=== PATIENT | female | born 1950 | race Caucasian/White ===

== ENCOUNTER 2016-08-20 13:49 | Emergency (ER) | payer MEDICARE ==
[~2016-08-20] VITALS: Ht 157.4 cm; Wt 72.6 kg
[~2016-08-20 13:49] MED LIST: ACCUNEB 0.1.25 MG/1 INH; ACTOS45 MG PO; ADVAIR 250/501 EA INH; AMARYL4 MG PO; AMBIEN10 MG PO; CARDIZEM CD180 MG PO; CLONAZEPAM1 MG PO; CYCLOBENZAPRINE10 MG PO; DOXYCYCLINE MO100 MG PO; DOXYCYCLINE100 M3 PO; ERYTHROMYCIN500 M2 PO; FLAGYL500 MG; GLYBURIDE5 MG PO; KLONOPIN1 MG PO; LEVAQUIN750 MG PO; MEDROL DOSEPAK4 MG PO; MILLIPRED DP5 MG PO; MUCINEX600 MG PO; NAPROSYN500 MG PO; NEOMYCIN SULFA500 MG; NICODERM21 MG/24 H TD; OSCAL,OYSTER S500 MG PO; OXYCODONE AND A1 T13 PO; PEPCID AC10 M1 PO; PERCOCET 325 MG1 TA5 PO; PLAVIX75 MG PO; PRAVACHOL20 MG PO; PREDNISONE10 MG PO; PRILOSEC20 MG PO; SINGULAIR10 MG PO; SYMBICORT1 AE1 INH; TRAMADOL HCL50 MG PO; TUSSI ORGANIDI PO; VITAMIN D50000 I2 PO; ZITHROMAX Z-PA250 MG
[2016-08-20 14:07] VITALS: BP 145/49
[2016-08-20 15:17] LABS: BASO % 0.5 % (0.0-1.0); EOS # 0.1 10*3/uL (0.0-0.4); EOS % 1.1 % (1.0-4.0); HEMATOCRIT 47.5 % (37.0-47.0); HEMOGLOBIN 15.4 g/dl (12.0-16.0); LYMPH # 2.1 10*3/uL (1.3-4.4); LYMPH % 31.9 % (27.0-41.0); MEAN CELL VOLUME 99.4 fl (81.0-99.0); MEAN CORPUSCULAR HGB 32.2 pg (27.0-31.0); MEAN CORPUSCULAR HGB CONC 32.4 g/dl (33.0-37.0); MEAN PLATELET VOLUME 10.3 fl (9.6-12.3); MONO # 0.5 10*3/uL (0.1-1.0); MONO % 7.6 % (3.0-9.0); NEUT # 3.8 10*3/uL (2.3-7.9); NEUT % 58.7 % (47.0-73.0); PLATELET COUNT AUTOMATED 179 10*3/uL (130-400); RED BLOOD COUNT 4.78 10*6/uL (4.10-5.10); RED CELL DISTRI WIDTH 14.1 % (0-14.5); WHITE BLOOD COUNT 6.5 10*3/uL (4.8-10.8)
[2016-08-20 15:33] LABS: ALBUMIN 3.1 gm/dl (3.1-4.5); ALKALINE PHOSPHATASE 93 U/L (45-117); BILIRUBIN, TOTAL 0.3 mg/dl (0.2-1.0); BUN 18 mg/dl (7-24); CARBON DIOXIDE 34 mmol/L (21-32); CHLORIDE 104 mmol/L (98-107); EST GLOM FILT AFRICAN AMERICAN > 60 ml/min; GLUCOSE 233 mg/dL (65-99); POTASSIUM 4.8 mmol/L (3.5-5.1); SGOT/AST 7 IU/L (3-35); SGPT/ALT 15 U/L (12-78); SODIUM 144 mmol/L (136-145); TOTAL PROTEIN 6.8 gm/dL (6.4-8.2)
[2016-08-20] MEDS ORDERED: PREDNISONE10 MG PO (16:13)
[2016-08-20] MEDS ORDERED: VIBRAMYCIN100 MG PO (16:13)
[2016-08-20 16:31] LABS: BILIRUBIN NEGATIVE (NEGATIVE); BLOOD NEGATIVE (NEGATIVE); CLARITY CLEAR (CLEAR); COLOR YELLOW (YELLOW); GLUCOSE 2+ (NEGATIVE); KETONE NEGATIVE (NEGATIVE); LEUKO ESTERASE NEGATIVE (NEGATIVE); NITRITE NEGATIVE (NEGATIVE); PROTEIN NEGATIVE (NEGATIVE); SPECIFIC GRAVITY >= 1.030 (1.005-1.030)
[2016-08-20 16:57] LABS: MUCOUS TRACE; RBC 0-2 rbc/hpf (0-2); URINE REFLEX COMMENT NO (NO); WBC 0-2 wbc/hpf (0-5)
== END 2016-08-20 16:23 | disposition home or self-care (01) ==
LOC: ED 13:49
PROVIDERS: Physician Assistant
DX: J40 Bronchitis, not specified as acute or chronic (principal); F17.200 Nicotine dependence, unspecified, uncomplicated; Z90.49 Acquired absence of other specified parts of digestive tract; J44.9 Chronic obstructive pulmonary disease, unspecified; J45.909 Unspecified asthma, uncomplicated

== ENCOUNTER → 2016-12-04 | Outpatient (CLI) | payer MEDICARE ==
[~2016-12-04] MED LIST changes: +VIBRAMYCIN100 MG PO
== END | disposition home or self-care (01) ==
LOC: MAMMO 10:12
DX: Z12.31 Encounter for screening mammogram for malignant neoplasm of breast (principal)

== ENCOUNTER 2017-02-09 12:55 | Inpatient (IN) | payer MEDICARE ==
[~2017-02-09] VITALS: Ht 157.4 cm; Wt 81.4 kg
--- NOTE | ~2017-02-09 | WRIGHTHP ---
[place], [place] PATIENT HISTORY AND PHYSICAL EXAM NAME: ARIEL FELIPE [facility] #: [id number] UNIT #: [id number] ROOM: [facility] DOCTOR: GINI RAE DO BIRTHDATE: [birth year] DOS: 02/09/2017 PRIMARY CARE PHYSICIAN: Dr. Sadaf Jeong The patient was seen and evaluated with the resident on 02/09/2017. Please see the resident's note for further details. ASSESSMENT: 1. Acute heart failure, unknown if systolic versus diastolic at this time. 2. Acute chronic obstructive pulmonary disease exacerbation. 3. Acute respiratory failure with hypoxia. 4. Diabetes mellitus type 2. 5. History of rheumatic fever as a child. 6. Hypertension. 7. Gastroesophageal reflux disease. 8. Tobacco abuse. 9. History of asthma. 10. History of bipolar disorder. 11. Depression. 12. Anxiety. 13. History of known left carotid artery stenosis. 14. History of diverticulitis with perforation, requiring a colostomy and reversal. PLAN: We will continue diuresis with IV Lasix, continue steroids, antibiotics and aerosol treatments. An echocardiogram has been ordered. Continue to follow the cardiac enzymes. GINI RAE DO CM:HISPHYS:PATIENT HISTORY AND PHYSICAL EXAMINATION 20 58 GINI RAE DO 02/09/172057 interface
[~2017-02-09 12:55] MED LIST changes: +SINGULAIR10 M1 PO; -SINGULAIR10 MG PO
[2017-02-09 13:00] VITALS: BP 154/68
[2017-02-09 13:37] LABS: BASO # 0.1 10*3/uL (0.0-0.1); BASO % 0.9 % (0.0-1.0); EOS % 0.5 % (1.0-4.0); HEMATOCRIT 46.6 % (37.0-47.0); HEMOGLOBIN 14.9 g/dl (12.0-16.0); LYMPH % 24.9 % (27.0-41.0); MEAN CELL VOLUME 99.1 fl (81.0-99.0); MEAN CORPUSCULAR HGB 31.7 pg (27.0-31.0); MEAN PLATELET VOLUME 9.9 fl (9.6-12.3); MONO # 0.8 10*3/uL (0.1-1.0); MONO % 9.9 % (3.0-9.0); NEUT # 5.1 10*3/uL (2.3-7.9); NEUT % 63.4 % (47.0-73.0); PLATELET COUNT AUTOMATED 168 10*3/uL (130-400)
[2017-02-09 13:55] LABS: ALKALINE PHOSPHATASE 98 U/L (45-117); BILIRUBIN, TOTAL 0.8 mg/dl (0.2-1.0); BUN 11 mg/dl (7-24); CARBON DIOXIDE 29 mmol/L (21-32); CHLORIDE 102 mmol/L (98-107); EST GLOM FILT AFRICAN AMERICAN > 60 ml/min; GLUCOSE 135 mg/dL (65-99); POTASSIUM 4.1 mmol/L (3.5-5.1); SGOT/AST 17 IU/L (3-35); SGPT/ALT 23 U/L (12-78); SODIUM 140 mmol/L (136-145); TOTAL PROTEIN 6.7 gm/dL (6.4-8.2); TROPONIN I 0.016 ng/ml (<0.045)
[2017-02-09 14:58] VITALS: BP 152/52
[2017-02-09 16:19] VITALS: BP 136/69
[2017-02-09 16:30] VITALS: BP 136/69
[2017-02-09] MEDS ORDERED: ZESTRIL10 MG PO (16:46)
[2017-02-09] MEDS ORDERED: ACTOS30 M1 PO (16:46)
[2017-02-09] MEDS ORDERED: PEPCID20 MG PO (16:47)
[2017-02-09] MEDS ORDERED: SPIRIVA -- 3018 MCG INH (16:49)
[2017-02-09] MEDS ORDERED: AMBIEN5 MG PO (16:51)
[2017-02-09] MEDS ORDERED: OXYCODONE-ASPI1 EACH PO (17:33)
[2017-02-09 19:59] VITALS: BP 158/63
[2017-02-10] VITALS: BP 124/58
[2017-02-10 06:59] LABS: HEMATOCRIT 44.8 % (37.0-47.0); HEMOGLOBIN 14.2 g/dl (12.0-16.0); MEAN CELL VOLUME 98.9 fl (81.0-99.0); MEAN CORPUSCULAR HGB 31.3 pg (27.0-31.0); MEAN CORPUSCULAR HGB CONC 31.7 g/dl (33.0-37.0); MEAN PLATELET VOLUME 10.4 fl (9.6-12.3); PLATELET COUNT AUTOMATED 163 10*3/uL (130-400); RED BLOOD COUNT 4.53 10*6/uL (4.10-5.10); RED CELL DISTRI WIDTH 14.9 % (0-14.5)
[2017-02-10 07:29] LABS: BUN 20 mg/dl (7-24); CARBON DIOXIDE 31 mmol/L (21-32); CHLORIDE 100 mmol/L (98-107); CHOLESTEROL 138 mg/dL (<200); EST GLOM FILT AFRICAN AMERICAN > 60 ml/min; GLUCOSE 351 mg/dL (65-99); MAGNESIUM 2.2 mg/dL (1.5-2.1); SODIUM 141 mmol/L (136-145)
[2017-02-10 07:32] LABS: LYMPHOCYTE # 0.4 10*3/uL (1.3-4.4); NEUTROPHIL # 8.6 10*3/uL (2.3-7.9); NEUTROPHILS 96 % (47-73); PLATELET SUFFICIENCY NORMAL (NORMAL); TOTAL CELLS COUNTED 100 #CELLS
[2017-02-10 07:41] LABS: FREE T4 1.08 ng/dl (0.76-1.46); HDL CHOLESTEROL 71 mg/dl (40-60); LDL CHOLESTEROL 58 mg/dL (9-159); PHOSPHOROUS 3.3 mg/dL (2.5-4.9); THYROID STIM HORMONE (HS) 0.281 uIU/ml (0.358-4.75); TRIGLYCERIDES 45 mg/dl (<150); VLDL CHOLESTEROL 9 mg/dL (6-40)
[2017-02-10 07:58] LABS: HEMOGLOBIN A1c 7.2 % (4.8-5.6)
[2017-02-10 07:59] LABS: FOLIC ACID 9.56 ng/mL (>5.38); VITAMIN D, 25-HYDROXY 18.9 ng/mL (30-100)
[2017-02-10 08:00] VITALS: BP 149/46
[2017-02-10 12:00] VITALS: BP 118/72; BP 139/56
[2017-02-10 16:00] VITALS: BP 134/45
[2017-02-10 20:00] VITALS: BP 127/44
[2017-02-10 21:00] VITALS: BP 162/72
[2017-02-11] VITALS: BP 115/45
[2017-02-11 06:09] LABS: CARBON DIOXIDE 32 mmol/L (21-32); CHLORIDE 97 mmol/L (98-107); EST GLOM FILT AFRICAN AMERICAN > 60 ml/min; GLUCOSE 208 mg/dL (65-99); POTASSIUM 4.6 mmol/L (3.5-5.1); SODIUM 136 mmol/L (136-145)
[2017-02-11 06:24] LABS: BUN 39 mg/dl (7-24)
[2017-02-11] MEDS ORDERED: PREDNISONE10 MG PO (07:55)
[2017-02-11] MEDS ORDERED: LEVOFLOXACIN500 MG PO (07:55)
[2017-02-11] MEDS ORDERED: LASIX20 MG PO (07:57)
[2017-02-11 08:00] VITALS: BP 126/63; BP 132/74
== END 2017-02-11 10:00 | disposition home or self-care (01) | DRG 291 ==
LOC: ED 12:55 → EDHOLD 14:56 → 5E 14:56
PROVIDERS: Nurse Practitioner Family; Student in an Organized Health Care Education/Training Program
DX: I11.0 Hypertensive heart disease with heart failure (principal); J96.01 Acute respiratory failure with hypoxia; E44.0 Moderate protein-calorie malnutrition; J44.1 Chronic obstructive pulmonary disease with (acute) exacerbation; I00 Rheumatic fever without heart involvement; I50.9 Heart failure, unspecified; E78.5 Hyperlipidemia, unspecified; F41.1 Generalized anxiety disorder; E11.65 Type 2 diabetes mellitus with hyperglycemia; E83.41 Hypermagnesemia; F17.210 Nicotine dependence, cigarettes, uncomplicated; F31.9 Bipolar disorder, unspecified; I65.22 Occlusion and stenosis of left carotid artery; Z93.3 Colostomy status; Z82.5 Family history of asthma and other chronic lower respiratory diseases; Z79.899 Other long term (current) drug therapy; Z68.31 Body mass index [BMI] 31.0-31.9, adult

== ENCOUNTER 2017-04-09 12:20 | Inpatient (IN) | payer OTHER ==
[~2017-04-09] VITALS: Ht 157.4 cm; Wt 81.7 kg
--- NOTE | ~2017-04-09 | PR ---
[place], [place] PROGRESS NOTE NAME: ARIEL FELIPE [facility] #: [id number] UNIT #: [id number] ROOM: 416 DOCTOR: NIYAH MENEZES MD BIRTHDATE: [birth year] DOS: 04/13/2017 CARDIOLOGY PROGRESS NOTE SUBJECTIVE: The patient was seen at the Cardiology Department today just prior to her stress test. She is a 67-year-old woman who presented to the hospital on 04/09/2017 with worsening abdominal swelling and peripheral edema. She has risk factors of hypertension, hyperlipidemia and ongoing cigarette abuse, but states that recently when she started taking metformin, she developed abdominal distention, peripheral edema and dyspnea. In addition, she does have a skin rash with diffuse erythema. Prior to her admission, she believes that she gained 15-20 pounds. Since she has been in the hospital, we have been diuresing her aggressively. Her fluid balance is not dramatically negative; however, there is some question about the accuracy of the intake and output measurements. PHYSICAL EXAMINATION: VITAL SIGNS: Today, her pulse is 80 and regular, blood pressure is 100/50. She is afebrile. She weighs 84.9 kilograms with a body mass index of 34.2. NECK: Supple. She has no jugular distention. Carotids are full. LUNGS: Respirations are unlabored. She has decreased breath sounds at the bases, but no wheezes or rales. HEART: Has a regular rhythm. She has an S4 gallop and a grade 2/6 systolic murmur along the sternal border. ABDOMEN: Soft and normally active. EXTREMITIES: Showed 2+ edema to the knees. DIAGNOSTIC STUDIES: An echocardiogram was done on 04/10/2017, which showed normal left ventricular size, wall thickness and systolic function. The left ventricle actually appeared to be hyperdynamic. No obvious valve abnormalities were seen. LABORATORY DATA: Today show hemoglobin of 14.8, white count of 12,700. BUN 31, creatinine 0.89, sodium 139, potassium 4.9. IMPRESSION: 1. Massive fluid retention. The etiology to be determined. Echocardiogram done this admission did not show any new systolic dysfunction or valve abnormalities. 2. Recent adverse reaction to metformin. It is possible that this has contributed to significant third space fluid and capillary leak syndrome. 3. Type 2 diabetes mellitus. 4. Hypertension. 5. Hyperlipidemia. 6. Widespread vascular disease documented by CT scan of her chest and abdomen, which showed coronary vascular calcifications, aortic calcifications, iliac calcifications, etc. 7. Bilateral carotid bruits. Carotid ultrasound did not show a high-grade disease. PLAN: We will proceed with a pharmacologic stress test for risk stratification. [place], [place] PROGRESS NOTE NAME: ARIEL FELIPE UNIT #: [id number] ROOM: 416 DOCTOR: NIYAH MENEZES MD BIRTHDATE: [birth year] We will continue her diuresis as scheduled. I thank the hospitalist group for asking our advice regarding her care. NIYAH MENEZES MD CM:PNTRANS [phone] NIYAH MENEZES MD 04/15/17 1556 interface
--- NOTE | ~2017-04-09 | PR ---
[place], [place] PROGRESS NOTE NAME: ARIEL FELIPE [facility] #: [id number] UNIT #: [id number] ROOM: 416 DOCTOR: NIYAH MENEZES MD BIRTHDATE: [birth year] DOS: 04/14/2017 SUBJECTIVE: The patient was seen at her bedside today, 04/14/2017. No family were in attendance. She tells me that she feels well today and specifically denies any chest pain or palpitations. Overnight, she was noted to have a rapid regular narrow complex rhythm. Review of the rhythm strip shows that she is in atrial flutter with 2:1 block and a heart rate response of 150 beats per minute. Otherwise, she has no other complaints. As noted previously, her carotid ultrasound showed bilateral disease, but no high grade stenoses. The high grade stenosis was mostly in her external carotids which is clinically insignificant. Nuclear perfusion images showed normal myocardial perfusion and function. Overnight, she did develop atrial flutter with 2:1 block. She is tolerating this well with minimal symptoms. PHYSICAL EXAMINATION: VITAL SIGNS: Today, her pulse is 150 and regular, blood pressure is 110/78. She is afebrile. NECK: Supple. She has no jugular distention. Carotids are full without bruits. LUNGS: Respirations are unlabored. Her chest is clear. HEART: Has a regular rhythm with a rapid ventricular response. No murmurs or gallops are present. ABDOMEN: Obese. EXTREMITIES: Showed no edema. LABORATORY DATA: Monitor strips does show that she has been in atrial flutter all morning. IMPRESSION: 1. Heart failure, improving with diuresis. 2. Recent adverse reaction to metformin. 3. Type 2 diabetes mellitus. 4. Hypertension. 5. Hyperlipidemia. 6. Widespread vascular calcifications, but no history of stroke or coronary artery disease. 7. Bilateral carotid bruits. 8. Newly documented atrial flutter. [id number] score equals 5 consistent with high risk for cardiac events. PLAN: The patient was again strongly encouraged to modify her risk factors and quit smoking. I did discuss stroke prophylaxis with the patient and her risk for stroke. She has agreed to start a novel oral anticoagulant drug. We will start her on Xarelto 20 mg daily and observe her in the hospital. In the meantime, I will increase her diltiazem to decrease her heart rate response to the atrial flutter. I will stop antiplatelet agents including aspirin and Plavix along with stopping enoxaparin. Hopefully, we can get her out of the hospital next 24 hours. [place], [place] PROGRESS NOTE NAME: ARIEL FELIPE UNIT #: [id number] ROOM: 416 DOCTOR: NIYAH MENEZES MD BIRTHDATE: [birth year] I thank the hospitalist physicians for asking our advice regarding her care. NIYAH MENEZES MD CM:PNTRANS [phone] NIYAH MENEZES MD 04/14/17 1350 interface
--- NOTE | ~2017-04-09 | CON ---
[place], [place] REPORT OF CONSULTATION NAME: ARIEL FELIPE [facility] #: [id number] UNIT #: [id number] ROOM: 416 DOCTOR: NIYAH MENEZES MD BIRTHDATE: [birth year] DOS: 04/10/2017 CARDIOLOGY CONSULTATION. REASON FOR CONSULTATION: Fluid overload and nonsustained ventricular tachycardia. HISTORY OF PRESENT ILLNESS: The patient is a 67-year-old woman who is known to have vascular disease, but has never had a heart attack or stroke. She was followed in the past by Dr. Esposito for carotid vascular disease. Her most recent carotid ultrasound study in October 2014 showed atherosclerotic plaque bilaterally with a 50-70% stenosis of the left internal carotid and less than 50% stenosis on the right. The patient does have risk factors of hypertension, hyperlipidemia and ongoing cigarette abuse. She presented to the hospital on this occasion because of worsening peripheral edema with a weight gain of 15-20 pounds over 2 weeks. She states that she had been placed on metformin in the end of February. After that, she began to have diarrhea and significant swelling of her extremities, abdomen and face. She denied nausea, vomiting or bleeding from any site. In the hospital, she was felt to be in heart failure. Her chest x-ray does show pleural effusion and this is confirmed by CAT scan of the chest. She does have a proBNP of 1019. In addition, shortly after admission, she did have a 5-beat run of wide complex tachycardia. Cardiology was therefore asked to assist in her assessment. The patient denies any chest pain or palpitations. She has not had lightheadedness or syncope. She denies orthopnea or PND, but states that her legs have been so swollen that she has a hard time moving them lately. PAST MEDICAL HISTORY: Includes: 1. Carotid vascular disease. 2. Long-term and ongoing cigarette abuse. 3. Obesity. 4. Hypertension. 5. Hyperlipidemia. 6. History of severe diverticular disease requiring colostomy several years ago. 7. Echocardiogram 02/04/2017 showed a 60% ejection fraction with normal left ventricular wall motion. The patient had grade 1 diastolic dysfunction with normal right-sided chambers and only trace MR. MEDICATIONS: Prior to admission, Spiriva inhaled daily, Percocet p.r.n. pain, clopidogrel 75 mg per day, diltiazem 180 mg daily, famotidine 20 mg b.i.d., furosemide 20 mg daily, glimepiride 4 mg daily, lisinopril 10 mg daily, Singulair 10 mg daily, pioglitazone 30 mg daily, pravastatin 20 mg at bedtime, tramadol 50 mg 2 tablets every 8 hours, and Ambien 5 mg at bedtime p.r.n. ALLERGIES: She has no drug allergies. [place], [place] REPORT OF CONSULTATION NAME: ARIEL FELIPE UNIT #: [id number] ROOM: [facility] DOCTOR: NIYAH MENEZES MD BIRTHDATE: [birth year] FAMILY HISTORY: The patient's father of rabies at age 23. Her mother of Alzheimer's dementia at age 73 and also had a history of COPD, diabetes, and hypertension. REVIEW OF SYSTEMS: The patient denies diplopia or loss of vision. She has gained 15-20 pounds in the last 2 weeks. She denies fevers, chills or any weight loss. She denies any change in her vision, diplopia or loss of vision. She denies any focal weakness. She has had swelling of her face, hands and feet. She has had some shortness of breath with wheezing and dyspnea on exertion. She denies any chest pain. Her abdomen has been swollen and painful. She denies any blood in her stools. She denies any blood in her urine. She denies any specific hot joints. She denies polydipsia or polyuria. The remainder of the review of systems is negative except as noted above. SOCIAL HISTORY: The patient is a . She has also had the of her son. She smokes at least a pack of cigarettes a day and lives alone. She does not drink alcohol or use illicit drugs. PHYSICAL EXAMINATION: GENERAL: The patient is an obese white female who is awake, alert and oriented. VITAL SIGNS: Pulse is 90 and regular, blood pressure is 143/52. She is afebrile. Pulse oximetry is between 90 and 95. HEENT: Normocephalic and atraumatic. Extraocular muscles are intact. Sclerae are clear. Pupils are round and react to light. The oral mucosa is moist. Tongue is midline. NECK: Supple. She does have jugular distention to the angle of the jaw when sitting in a 45-degree angle and also has hepatojugular reflux. Carotids are full. She has very loud bilateral bruits, especially on the left. She has no neck or supraclavicular masses. No thyromegaly. LUNGS: Respirations are unlabored at rest. She does have marked expiratory prolongation with bilateral wheezes. I heard no rales. She had no presacral edema or chest wall tenderness. CARDIOVASCULAR: Her heart had a regular rhythm with a fourth heart sound, but no third heart sound or murmur. The PMI was not displaced. There was no precordial heave, lift or thrill. ABDOMEN: Obese, but otherwise benign. She did not have an obvious fluid wave. There were no masses, organomegaly or specific tenderness. EXTREMITIES: Showed 3+ edema to the knees. Pedal pulses were very markedly diminished bilaterally, especially on the left. LABORATORY DATA: Her electrocardiogram shows sinus rhythm with biatrial enlargement, but no acute ST or T-wave changes. Troponin levels have been . IMPRESSIONS: 1. Heart failure, etiology to be determined. Her echocardiogram in January showed normal left ventricular systolic function and only mild diastolic dysfunction. Her fluid retention seems out of proportion to that. 2. Recent adverse reaction to metformin. 3. Type 2 diabetes mellitus. [place], [place] REPORT OF CONSULTATION NAME: ARIEL FELIPE UNIT #: [id number] ROOM: [facility] DOCTOR: NIYAH MENEZES MD BIRTHDATE: [birth year] 4. Hypertension. 5. Hyperlipidemia. 6. Widespread vascular disease as documented by calcification noted on her CT scan of her chest and abdomen. She specifically does have coronary vascular calcifications, aortic calcifications, iliac calcifications, etc. She is also noted to have carotid vascular disease. 7. Bilateral carotid bruits. PLAN: The patient was strongly advised to quit smoking, but this seems to be unlikely at the present time. We will start by aggressively diuresing her while watching her renal functions. We will do a limited echocardiogram to make sure that she has not had left ventricular systolic dysfunction since her last echo done in January. Once she is euvolemic, we will think about doing a pharmacologic myocardial stress test within the next few days. Further recommendations will depend upon the results of testing. I thank the hospitalist physicians for asking our advice regarding her care. NIYAH MENEZES MD CM:CONSTR:REPORT OF CONSULTATION 1456 04/11/17 0204 interface
[~2017-04-09 12:20] MED LIST changes: +ACTOS30 M1 PO; +AMBIEN5 MG PO; +LASIX20 MG PO; +LEVOFLOXACIN500 MG PO; +PEPCID20 MG PO; +Percocet 325 MG1 TAB PO; +SPIRIVA -- 3018 MCG INH; +ZESTRIL10 MG PO
[2017-04-09 12:32] VITALS: BP 150/51
--- NOTE | 2017-04-09 13:19 | NUR ---
[facility] , under the services of GINI Lucero DO with a diagnosis of COPD, CHF. Chief complaint is PAIN. Patient arrived via wheel chair from [place]. Monitor applied. Initial assessment completed. Vital signs taken and recorded. GINI LUCERO DO notified of admission to the unit. Orders received. See assessment for past medical history, medications and allergies. Patient and/or family oriented to unit. [facility]. Clothing/patient valuable form completed. YOANA DALLAS
[2017-04-09 13:38] LABS: BASO % 0.5 % (0.0-1.0); EOS # 0.1 10*3/uL (0.0-0.4); EOS % 1.2 % (1.0-4.0); HEMATOCRIT 48.7 % (37.0-47.0); HEMOGLOBIN 15.2 g/dl (12.0-16.0); LYMPH # 1.4 10*3/uL (1.3-4.4); MEAN CORPUSCULAR HGB 31.5 pg (27.0-31.0); MEAN CORPUSCULAR HGB CONC 31.2 g/dl (33.0-37.0); MEAN PLATELET VOLUME 9.8 fl (9.6-12.3); MONO # 0.6 10*3/uL (0.1-1.0); MONO % 10.6 % (3.0-9.0); NEUT # 3.8 10*3/uL (2.3-7.9); NEUT % 64.4 % (47.0-73.0); PLATELET COUNT AUTOMATED 166 10*3/uL (130-400); RED BLOOD COUNT 4.82 10*6/uL (4.10-5.10); RED CELL DISTRI WIDTH 16.6 % (0-14.5)
[2017-04-09 13:47] LABS: ACT PARTIAL THROMBO TIME 24.8 SECONDS (20.8-31.5)
[2017-04-09 13:52] LABS: ALBUMIN 2.9 gm/dl (3.1-4.5); ALKALINE PHOSPHATASE 92 U/L (45-117); BUN 12 mg/dl (7-24); CHLORIDE 99 mmol/L (98-107); CREATININE 0.62 mg/dL (0.55-1.02); MAGNESIUM 2.2 mg/dL (1.5-2.1); PHOSPHOROUS 2.9 mg/dL (2.5-4.9); POTASSIUM 3.7 mmol/L (3.5-5.1); SGOT/AST 12 IU/L (3-35); SGPT/ALT 16 U/L (12-78); SODIUM 141 mmol/L (136-145); TOTAL PROTEIN 6.1 gm/dL (6.4-8.2)
[2017-04-09 16:00] VITALS: BP 157/52
--- NOTE | 2017-04-09 17:23 | NUR ---
DILAUDID GIVEN FOR C/O ABDM. PAIN PHENERGAN GIVEN FOR C/O NAUSEA. WILL MONITOR.
--- NOTE | 2017-04-09 17:56 | NUR ---
NOTIFIED DR. Melvi RAE THAT PT HAS NOT STARTED TO DRINK HER PREP FOR CT SCAN. PT IS DROWSY.
--- NOTE | 2017-04-09 19:14 | NUR ---
DR. MENEZES'S ANSWERING SERVICE NOTIFIED OF CONSULT.
[2017-04-09 19:58] LABS: CKMB 1.1 ng/ml (0.5-3.6); CPK 34 U/L (26-192); LDH 209 U/L (84-246); TROPONIN I < 0.015 ng/ml (<0.045)
[2017-04-09 20:00] VITALS: BP 149/55
--- NOTE | 2017-04-09 20:44 | NUR ---
PATIENT COMPLAINS OF PAIN IN ABDOMEN AND HEAD, REQUESTED PAIN MEDICATION. STATES THAT PAIN IN AN 8 ON SCALE OF 1-10.
--- NOTE | 2017-04-09 21:15 | NUR ---
PATIENT STATES THAT PAIN IS NOW A 6 ON A SCALE OF 1-10.
--- NOTE | 2017-04-09 21:18 | NUR ---
PATIENT OFF OF THE FLOOR TO CT SCAN VIA WHEELCHAIR AND PA.
--- NOTE | 2017-04-09 21:35 | NUR ---
PATIENT RETURNED TO HER ROOM VIA WHEELCHAIR AND PA.
--- NOTE | 2017-04-09 22:20 | NUR ---
URINE OBTAINED AND SENT TO LAB.
[2017-04-09 22:33] LABS: BILIRUBIN NEGATIVE (NEGATIVE); BLOOD TRACE-LYSED (NEGATIVE); CLARITY SL CLOUDY (CLEAR); COLOR YELLOW (YELLOW); GLUCOSE NEGATIVE (NEGATIVE); KETONE NEGATIVE (NEGATIVE); LEUKO ESTERASE NEGATIVE (NEGATIVE); NITRITE NEGATIVE (NEGATIVE); UROBILINOGEN 0.2 E.U./dl (0.2-1.0)
[2017-04-09 22:42] LABS: BACTERIA 2+; WBC 0-2 wbc/hpf (0-5)
[2017-04-10] VITALS: BP 146/55
[2017-04-10 03:40] LABS: HEMATOCRIT 47.7 % (37.0-47.0); HEMOGLOBIN 14.6 g/dl (12.0-16.0); MEAN CELL VOLUME 101.5 fl (81.0-99.0); MEAN CORPUSCULAR HGB 31.1 pg (27.0-31.0); MEAN CORPUSCULAR HGB CONC 30.6 g/dl (33.0-37.0); MEAN PLATELET VOLUME 9.7 fl (9.6-12.3); PLATELET COUNT AUTOMATED 161 10*3/uL (130-400); RED CELL DISTRI WIDTH 16.1 % (0-14.5); WHITE BLOOD COUNT 4.7 10*3/uL (4.8-10.8)
[2017-04-10 03:51] LABS: ACT PARTIAL THROMBO TIME 24.9 SECONDS (20.8-31.5); INTERNATIONAL NORM RATIO 1.1 (2.0-3.5)
[2017-04-10 03:56] LABS: ALBUMIN 2.9 gm/dl (3.1-4.5); ALKALINE PHOSPHATASE 97 U/L (45-117); BUN 12 mg/dl (7-24); CHLORIDE 96 mmol/L (98-107); CREATININE 1.04 mg/dL (0.55-1.02); MAGNESIUM 2.1 mg/dL (1.5-2.1); PHOSPHOROUS 2.7 mg/dL (2.5-4.9); POTASSIUM 3.6 mmol/L (3.5-5.1); SGOT/AST 12 IU/L (3-35); SGPT/ALT 16 U/L (12-78); SODIUM 138 mmol/L (136-145); TOTAL PROTEIN 6.2 gm/dL (6.4-8.2)
[2017-04-10 03:57] LABS: CKMB 1.1 ng/ml (0.5-3.6); CPK 32 U/L (26-192); LDH 198 U/L (84-246)
[2017-04-10 04:00] VITALS: BP 152/42
[2017-04-10 04:00] LABS: TROPONIN I < 0.015 ng/ml (<0.045)
[2017-04-10 04:16] LABS: PLATELET SUFFICIENCY NORMAL (NORMAL); TOTAL CELLS COUNTED 100 #CELLS
[2017-04-10 07:35] LABS: VITAMIN D, 25-HYDROXY 24.8 ng/mL (30-100)
--- NOTE | 2017-04-10 07:55 | NUR ---
Requested and medicated with Ambien at 0220 to aid sleep. Ambien minimally effective to rest quietly for a few hours. Requested and medicated with Ultram at 0453 for complaints of chest, back abdomen and entire body rated a 7/10. Ultram effective to decrease pain. Was awakened from sleep, feels it was a dream thinking it was chest pain. HR went up to 140's and dropped immediately to 102, then 90's. B/P 152/42 Manual. POX 92% on 2L. Cyrus Paiz called with orders recieved.
[2017-04-10 08:00] VITALS: BP 160/70
--- NOTE | 2017-04-10 08:30 | NUR ---
Alert and oriented x3. 2+ pitting edema noted to bl lower extremites. Lungs diminished with exp wheezes noted a and p and scattered rhonchi noted posteriorly. Moist cough noted. C/o pain, pt states that ultram helps somewhat but her pain is worse here in the hospital due to the bed here. States that she takes percocet at home as well which usually works better for pain. Is questioning why this is not being given here. States she would rather have that. I will speak with the physican regarding that.
--- NOTE | 2017-04-10 08:45 | NUR ---
I spoke with Dr. Cano regarding pt statements regarding percocet and ultram.
--- NOTE | 2017-04-10 09:09 | NUR ---
Met with Claudia-she was alert and oriented. Stated she lives alone; has ashleigh supportive sister. She was self sufficient. in August 2016. She uses [facility]. She does not use home . Dr. valdez is her primary care physician. She will make her own follow up appointments. No problems anticipated.
--- NOTE | 2017-04-10 09:18 | NUR ---
Medicated with percocet per prn order for complaints of pain to back, legs and stomach. Rated pain 8/10 in some areas states some areas are less.
--- NOTE | 2017-04-10 10:30 | NUR ---
States that percocet was effective.
[2017-04-10 12:00] VITALS: BP 143/52
--- NOTE | 2017-04-10 14:47 | NUR ---
Dr. Isidro in and examined pt. New orders received.
[2017-04-10 16:00] VITALS: BP 92/72
[2017-04-10 20:00] VITALS: BP 134/42
--- NOTE | 2017-04-10 20:00 | NUR ---
ASSUMED CARE OF PATIENT. ASSESSMENT COMPLETE. RESTING IN BED WITH NO COMPLAINTS. CALL LIGHT IN REACH. WILL CONTINUE TO MONITOR.
--- NOTE | 2017-04-10 21:30 | NUR ---
MEDICATED WITH PRN DULCOLAX PER PT REQUEST FOR C/O CONSTIPATION
--- NOTE | 2017-04-10 23:38 | NUR ---
MEDICATED WITH PRN PERCOCET FOR C/O BACK PAIN. RATES 02/23.
[2017-04-11] VITALS: BP 138/44
--- NOTE | 2017-04-11 02:00 | NUR ---
SLEEPING. RESP EASY AND NONLABORED ON 2L NC. NO DISTRESS NOTED. CM INTACT. CALL LIGHT IN REACH. WILL CONTINUE TO MONITOR.
[2017-04-11 06:21] LABS: HEMOGLOBIN 14.7 g/dl (12.0-16.0); MEAN CORPUSCULAR HGB 31.3 pg (27.0-31.0); MEAN CORPUSCULAR HGB CONC 31.3 g/dl (33.0-37.0); MEAN PLATELET VOLUME 10.3 fl (9.6-12.3); PLATELET COUNT AUTOMATED 173 10*3/uL (130-400); RED CELL DISTRI WIDTH 16.4 % (0-14.5); WHITE BLOOD COUNT 16.8 10*3/uL (4.8-10.8)
[2017-04-11 06:44] LABS: CHLORIDE 96 mmol/L (98-107); CREATININE 0.96 mg/dL (0.55-1.02)
[2017-04-11 07:12] LABS: PLATELET SUFFICIENCY NORMAL (NORMAL); TOTAL CELLS COUNTED 100 #CELLS
[2017-04-11 07:25] LABS: BUN 24 mg/dl (7-24); SODIUM 139 mmol/L (136-145)
[2017-04-11 08:00] VITALS: BP 132/54
[2017-04-11 12:00] VITALS: BP 129/56
[2017-04-11 16:00] VITALS: BP 117/57
[2017-04-11 20:00] VITALS: BP 116/51
--- NOTE | 2017-04-11 22:23 | NUR ---
MEDICATED WITH PERCOCET AT 1934 FOR COMPLAINTS OF PAIN WITH EFFECTIVE RESULTS NOTED. RESTING IN BED WITH EYES CLOSED AT THIS TIME. NO SIGNS OR SYMPTOMS OF DISTRESS NOTED. WILL CONTINUE TO MONITOR. CALL LIGHT IN REACH.
[2017-04-12] VITALS: BP 139/50
--- NOTE | 2017-04-12 03:36 | NUR ---
24 HOUR CHART CHECK DONE.
[2017-04-12 06:16] LABS: HEMATOCRIT 47.1 % (37.0-47.0); HEMOGLOBIN 14.8 g/dl (12.0-16.0); MEAN CELL VOLUME 99.6 fl (81.0-99.0); MEAN CORPUSCULAR HGB 31.3 pg (27.0-31.0); MEAN CORPUSCULAR HGB CONC 31.4 g/dl (33.0-37.0); MEAN PLATELET VOLUME 10.3 fl (9.6-12.3); PLATELET COUNT AUTOMATED 176 10*3/uL (130-400); RED BLOOD COUNT 4.73 10*6/uL (4.10-5.10); WHITE BLOOD COUNT 12.7 10*3/uL (4.8-10.8)
[2017-04-12 06:41] LABS: CHLORIDE 94 mmol/L (98-107); CREATININE 1.04 mg/dL (0.55-1.02); POTASSIUM 4.7 mmol/L (3.5-5.1); SODIUM 136 mmol/L (136-145)
[2017-04-12 06:50] LABS: BUN 35 mg/dl (7-24)
[2017-04-12 06:58] LABS: PLATELET SUFFICIENCY NORMAL (NORMAL); TARGET CELLS FEW; TOTAL CELLS COUNTED 100 #CELLS
[2017-04-12 08:00] VITALS: BP 128/52
--- NOTE | 2017-04-12 09:52 | NUR ---
MEDICATED WITH PERCOCET FOR COMPLAINTS OF ALL OVER PAIN. RATES PAIN A 7 ON A PAIN SCALE OF 1-10.
--- NOTE | 2017-04-12 10:30 | NUR ---
VOICES THAT PERCOCET WAS EFFECTIVE FOR PAIN.
[2017-04-12 12:00] VITALS: BP 136/57
[2017-04-12 16:00] VITALS: BP 127/41
--- NOTE | 2017-04-12 19:48 | NUR ---
PT. GIVEN PERCOSET FOR COMPLAINTS OF BACK AND LEG PAIN.
[2017-04-12 20:00] VITALS: BP 140/59
--- NOTE | 2017-04-12 20:51 | NUR ---
PT. RESTING IN BED, HEP LOCK IN REINA ASYMPT. LUNGS CLEAR BILAT, PULSE OX 93% ON RA. ABDOMEN SOFT, NONDISTENDED AND NORMO. 1-2+BLE EDEMA OF LEGS TO FEET. RESP. EASY AND REG NO DISTRESS. CHIQUITA MEHTA RN
--- NOTE | 2017-04-12 20:52 | NUR ---
PT. STATES PERCOSET EFFECTIVE.
[2017-04-13] VITALS: BP 152/60
[2017-04-13 06:48] LABS: BUN 31 mg/dl (7-24); CHLORIDE 93 mmol/L (98-107); CREATININE 0.89 mg/dL (0.55-1.02); POTASSIUM 4.9 mmol/L (3.5-5.1); SODIUM 139 mmol/L (136-145)
--- NOTE | 2017-04-13 07:09 | NUR ---
PT REFUSES INSULIN COVERAGE ABC SHE IS NPO FOR STRESS TEST. WILL MONITOR
[2017-04-13 08:00] VITALS: BP 100/50
--- NOTE | 2017-04-13 08:00 | NUR ---
TAKEN FOR STRESS TEST VIA WHEELCHAIR.
--- NOTE | 2017-04-13 10:27 | NUR ---
INFORMED CONSENT SIGNED FOR LEXISCAN STRESS TEST WITH DR. MENEZES. RESTING EKG NSR WITH RARE PVCS. LUNGS INSPIRATORY WHEEZE AND PULSE OX 97%. COMPLETED ONE MINUTE OF LEXISCAN PROTOCOL RECEIVING LEXISCAN 0.4MG OVER 10 SECONDS. NO ARRHYTHMIAS OR ST CHANGES NOTED. HAD NO C/O. LAST RECOVERY HR 82, BP 148/62. WAITING NUCLEAR SCANNING IN STABLE CONDITION.
--- NOTE | 2017-04-13 10:41 | NUR ---
pt unavailable for sa tx
--- NOTE | 2017-04-13 10:50 | NUR ---
PT UNAVAILABLE FOR SA TX
[2017-04-13 12:00] VITALS: BP 160/62
[2017-04-13 16:00] VITALS: BP 112/46
--- NOTE | 2017-04-13 19:36 | NUR ---
PT. RESTING IN BED PLAYING ON IPAD. HEP LOCK IN LA ASYMPT. LUNGS HAVE I&E WHEEZES BILAT. ABDOMEN SOFT, NONDISTENDED AND NORMO.. 1+BLE EDEMA NOTED. RESP. EASY AND REG NO DISTRESS. CHIQUITA MEHTA RN
--- NOTE | 2017-04-13 23:18 | NUR ---
PT. GIVEN PERCOSET AT 2115 FOR COMPLAINTS OF BACK, LEG AND MULTIPLE OTHER COMPLAINTS. STATED EFFECTIVE.
[2017-04-14] VITALS: BP 128/44
[2017-04-14 05:58] LABS: BASO % 0.1 % (0.0-1.0); HEMATOCRIT 47.7 % (37.0-47.0); HEMOGLOBIN 15.9 g/dl (12.0-16.0); LYMPH # 0.6 10*3/uL (1.3-4.4); LYMPH % 7.1 % (27.0-41.0); MEAN CORPUSCULAR HGB 32.1 pg (27.0-31.0); MEAN CORPUSCULAR HGB CONC 33.3 g/dl (33.0-37.0); MEAN PLATELET VOLUME 9.9 fl (9.6-12.3); MONO # 0.6 10*3/uL (0.1-1.0); MONO % 7.8 % (3.0-9.0); NEUT # 6.6 10*3/uL (2.3-7.9); NEUT % 84.4 % (47.0-73.0); PLATELET COUNT AUTOMATED 165 10*3/uL (130-400); RED BLOOD COUNT 4.96 10*6/uL (4.10-5.10); RED CELL DISTRI WIDTH 15.8 % (0-14.5); WHITE BLOOD COUNT 7.8 10*3/uL (4.8-10.8)
[2017-04-14 06:20] LABS: BUN 32 mg/dl (7-24); CHLORIDE 92 mmol/L (98-107); CREATININE 0.92 mg/dL (0.55-1.02); POTASSIUM 4.3 mmol/L (3.5-5.1); SODIUM 134 mmol/L (136-145)
[2017-04-14 06:29] LABS: MEAN CELL VOLUME 96.2 fl (81.0-99.0)
[2017-04-14 08:00] VITALS: BP 110/78
--- NOTE | 2017-04-14 13:53 | NUR ---
CT CALLED AT THIS TIME REQUESTING CXR TO BE DONE PRIOR TO CTA. NEW ORDERS TO BE ENTERED PER .
[2017-04-14 16:00] VITALS: BP 130/51
--- NOTE | 2017-04-14 19:55 | NUR ---
PT. RESTING IN BED, UP TO RR AD SUSAN. HEP LOCK IN REINA ASYMPT. LUNGS HAVE I&E WHEEZES BILAT. ABDOMEN SOFTLY DISTENDED AND NORMO, OBESE. BLE EDEMA NOTED. RESP. EASY AND REG NO DISTRESS. SOB NOTED WITH EXERTION ONLY. NSR PER CM. CHIQUITA MEHTA RN
[2017-04-14 20:00] VITALS: BP 147/47
--- NOTE | 2017-04-14 21:34 | NUR ---
PT. GIVEN PERCOSET ORDERED FOR GENERAL COMPLAINTS OF ACHES AND PAINS (BACK/LEGS, ETC)
[2017-04-15] VITALS: BP 132/47
--- NOTE | 2017-04-15 02:26 | NUR ---
24 HOUR CHART CHECK DONE.
[2017-04-15 06:03] LABS: BUN 33 mg/dl (7-24); CHLORIDE 90 mmol/L (98-107); CREATININE 0.78 mg/dL (0.55-1.02); SODIUM 138 mmol/L (136-145)
[2017-04-15 06:15] LABS: BASO % 0.1 % (0.0-1.0); EOS # 0.1 10*3/uL (0.0-0.4); EOS % 0.8 % (1.0-4.0); HEMATOCRIT 44.9 % (37.0-47.0); HEMOGLOBIN 14.8 g/dl (12.0-16.0); LYMPH # 2.1 10*3/uL (1.3-4.4); LYMPH % 28.7 % (27.0-41.0); MEAN PLATELET VOLUME 10.1 fl (9.6-12.3); MONO # 0.9 10*3/uL (0.1-1.0); MONO % 12.1 % (3.0-9.0); NEUT # 4.2 10*3/uL (2.3-7.9); NEUT % 57.7 % (47.0-73.0); PLATELET COUNT AUTOMATED 142 10*3/uL (130-400); RED BLOOD COUNT 4.63 10*6/uL (4.10-5.10); RED CELL DISTRI WIDTH 15.9 % (0-14.5); WHITE BLOOD COUNT 7.3 10*3/uL (4.8-10.8)
--- NOTE | 2017-04-15 06:18 | NUR ---
DR. RHODES NOTIFIED OF CRITICAL CO2 OF 43.
--- NOTE | 2017-04-15 06:32 | NUR ---
PATIENT RESTED WELL THROUGHOUT SHIFT. NO COMPLAINTS OF PAIN OR DISCOMFORT VOICED. CALL LIGHT IN REACH. WILL CONTINUE TO MONITOR.
[2017-04-15] MEDS ORDERED: LEVAQUIN750 M1 PO (07:56)
[2017-04-15] MEDS ORDERED: XARE20MG PO (07:56)
[2017-04-15] MEDS ORDERED: ALDACTONE25 MG PO (07:56)
[2017-04-15] MEDS ORDERED: LASIX20 MG PO (07:56)
[2017-04-15] MEDS ORDERED: PREDNISONE10 MG PO (07:56)
[2017-04-15 08:00] VITALS: BP 118/56
--- NOTE | 2017-04-15 08:17 | NUR ---
PT SAT 87% RA. 2L/M AVAILABLE. RN NOTIFIED.
--- NOTE | 2017-04-15 08:36 | NUR ---
PRN DULCOLAX GIVEN PER REQUEST. WILL MONITOR.
--- NOTE | 2017-04-15 09:22 | NUR ---
PER H[facility]DE AT [facility], PT WILL HAVE $8.25 COPAY FOR XARELTO. NURSE BRAKE PRESS OPERATOR FOR HOSP NOTIFIED.
--- NOTE | 2017-04-15 09:26 | NUR ---
[facility] Discharge instructions reviewed with patient/family. Patient receptive and verbalizes understanding. Follow-up care arranged. Written instructions given to patient/family. YOANA DALLAS
== END 2017-04-15 09:26 | disposition home or self-care (01) | DRG 871 ==
LOC: 4E 12:20
PROVIDERS: Internal Medicine; Internal Medicine Cardiovascular Disease; ADMIT Emergency Medicine
PROC: 4A02XM4 Measurement of Cardiac Total Activity, External Approach (ICD-10-PCS; principal; 2017-04-13)
PROC: 3E073KZ Introduction of Other Diagnostic Substance into Coronary Artery, Percutaneous Approach (ICD-10-PCS; principal; 2017-04-13)
DX: A41.9 Sepsis, unspecified organism (principal); I50.33 Acute on chronic diastolic (congestive) heart failure; R18.8 Other ascites; D68.59 Other primary thrombophilia; J44.1 Chronic obstructive pulmonary disease with (acute) exacerbation; I48.92 Unspecified atrial flutter; L03.116 Cellulitis of left lower limb; E11.9 Type 2 diabetes mellitus without complications; I11.0 Hypertensive heart disease with heart failure; E66.9 Obesity, unspecified; F41.1 Generalized anxiety disorder; I65.29 Occlusion and stenosis of unspecified carotid artery; F17.210 Nicotine dependence, cigarettes, uncomplicated; E78.5 Hyperlipidemia, unspecified; K57.90 Diverticulosis of intestine, part unspecified, without perforation or abscess without bleeding; Z98.891 History of uterine scar from previous surgery; Z83.6 Family history of other diseases of the respiratory system; Z82.0 Family history of epilepsy and other diseases of the nervous system; Z84.89 Family history of other specified conditions; Z79.899 Other long term (current) drug therapy; Z83.3 Family history of diabetes mellitus; Z68.34 Body mass index [BMI] 34.0-34.9, adult

== ENCOUNTER → 2017-05-26 | Outpatient (CLI) | payer OTHER, MEDICAID ==
[~2017-05-26] MED LIST changes: +ALDACTONE25 MG PO; +LEVAQUIN750 M1 PO; +XARE20MG PO
== END | disposition home or self-care (01) ==
LOC: RAD 13:00
DX: Z13.820 Encounter for screening for osteoporosis (principal); J44.9 Chronic obstructive pulmonary disease, unspecified; F17.200 Nicotine dependence, unspecified, uncomplicated; Z78.0 Asymptomatic menopausal state

== ENCOUNTER → 2017-12-24 | Outpatient (CLI) | payer OTHER, MEDICAID ==
[2017-12-24 08:49] LABS: BASO # 0.1 10*3/uL (0.0-0.1); BASO % 0.6 % (0.0-1.0); EOS # 0.1 10*3/uL (0.0-0.4); HEMATOCRIT 44.5 % (37.0-47.0); HEMOGLOBIN 14.1 g/dl (12.0-16.0); LYMPH # 2.4 10*3/uL (1.3-4.4); LYMPH % 23.3 % (27.0-41.0); MEAN CORPUSCULAR HGB 31.7 pg (27.0-31.0); MEAN CORPUSCULAR HGB CONC 31.7 g/dl (33.0-37.0); MEAN PLATELET VOLUME 10.7 fl (9.6-12.3); MONO # 0.8 10*3/uL (0.1-1.0); MONO % 7.9 % (3.0-9.0); NEUT % 66.8 % (47.0-73.0); PLATELET COUNT AUTOMATED 230 10*3/uL (130-400); RED BLOOD COUNT 4.45 10*6/uL (4.10-5.10); RED CELL DISTRI WIDTH 13.3 % (0-14.5); WHITE BLOOD COUNT 10.5 10*3/uL (4.8-10.8)
[2017-12-24 09:04] LABS: ALBUMIN 3.3 gm/dl (3.1-4.5); CREATININE 1.93 mg/dL (0.55-1.02); POTASSIUM 5.5 mmol/L (3.5-5.1); TOTAL PROTEIN 6.8 gm/dL (6.4-8.2)
[2017-12-24 09:12] LABS: THYROID STIM HORMONE (HS) 1.95 uIU/ml (0.358-4.75)
== END | disposition home or self-care (01) ==
LOC: MAMMO 12-02 08:40 → LAB 07:51 → MAMMO 08:20
PROVIDERS: Internal Medicine
DX: Z12.31 Encounter for screening mammogram for malignant neoplasm of breast (principal); E11.42 Type 2 diabetes mellitus with diabetic polyneuropathy; E78.2 Mixed hyperlipidemia; E55.9 Vitamin D deficiency, unspecified

== ENCOUNTER → 2017-12-28 | Outpatient (CLI) | payer OTHER, MEDICAID ==
[2017-12-28 09:23] LABS: POTASSIUM 5.3 mmol/L (3.5-5.1)
[2017-12-28 09:26] LABS: CREATININE 1.63 mg/dL (0.55-1.02)
== END | disposition home or self-care (01) ==
LOC: LAB 08:15
PROVIDERS: Internal Medicine
DX: I50.32 Chronic diastolic (congestive) heart failure (principal)

== ENCOUNTER → 2018-01-04 | Outpatient (CLI) | payer OTHER, MEDICAID ==
[2018-01-04 11:02] LABS: CREATININE 1.37 mg/dL (0.55-1.02); POTASSIUM 4.4 mmol/L (3.5-5.1)
== END | disposition home or self-care (01) ==
LOC: LAB 10:07
PROVIDERS: Internal Medicine
DX: I50.32 Chronic diastolic (congestive) heart failure (principal)

== ENCOUNTER → 2018-07-23 | Outpatient (CLI) | payer OTHER, MEDICAID | END | disposition home or self-care (01) | LOC: RAD 13:12 | DX: M51.34 Other intervertebral disc degeneration, thoracic region (principal); M85.88 Other specified disorders of bone density and structure, other site; S42.91XD Fracture of right shoulder girdle, part unspecified, subsequent encounter for fracture with routine healing; M21.921 Unspecified acquired deformity of right upper arm; X58.XXXD Exposure to other specified factors, subsequent encounter ==

== ENCOUNTER 2019-07-23 11:28 | Inpatient (IN) | payer OTHER, MEDICAID ==
[2019-07-23] VITALS (11 sets, daily range): BP systolic 89–162; BP diastolic 30–60
[~2019-07-23] VITALS: Ht 157.5 cm; Wt 76.8 kg
[2019-07-23 12:18] LABS: MEAN CELL VOLUME 78.8 fl (81.0-99.0); MEAN CORPUSCULAR HGB 21.2 pg (27.0-31.0); MEAN CORPUSCULAR HGB CONC 26.8 g/dl (33.0-37.0); MEAN PLATELET VOLUME 9.1 fl (9.6-12.3); NUCLEATED RED BLOOD CELL 0.1 10*3/uL (0.0-0.0); PLATELET COUNT AUTOMATED 316 10*3/uL (130-400); RED CELL DISTRI WIDTH 19.9 % (0-14.5); WHITE BLOOD COUNT 10.5 10*3/uL (4.8-10.8)
[2019-07-23 12:22] LABS: HEMATOCRIT 20.5 % (37.0-47.0); HEMOGLOBIN 5.5 g/dl (12.0-16.0)
--- NOTE | 2019-07-23 12:24 | NUR ---
CRITICAL LAB TEST RESULTS,HGB OF 5.5 AND HCT OF 20.[address] REPORTED TO DR FISHMAN. SUJIT RN
[2019-07-23 12:30] LABS: ALBUMIN 2.9 gm/dl (3.1-4.5); CREATININE 2.97 mg/dL (0.55-1.02); TOTAL PROTEIN 6.5 gm/dL (6.4-8.2)
[2019-07-23 12:35] LABS: BASOPHILS 1 % (0-1); MICROCYTOSIS SLIGHT; PLATELET SUFFICIENCY NORMAL (NORMAL); POLYCHROMASIA SLIGHT; ROULEAUX SLIGHT; TARGET CELLS FEW; TOTAL CELLS COUNTED 100 #CELLS
[2019-07-23 12:39] LABS: POTASSIUM 7.2 mmol/L (3.5-5.1)
--- NOTE | 2019-07-23 12:40 | NUR ---
ADDITIONAL CRITICAL LABS HAVE BEEN REPORTED TO DR FISHMAN. POTASSIUM OF 7.2,CREATININE OF 2.97,GLUCOSE OF 382. SUJIT BECERRA
[2019-07-23 14:23] LABS: CREATININE 3.11 mg/dL (0.55-1.02)
[2019-07-23 14:35] LABS: POTASSIUM 6.4 mmol/L (3.5-5.1)
--- NOTE | 2019-07-23 15:00 | NUR ---
A 69, admitted to [facility], under the services of NORBERT Arteaga DO with a diagnosis of gi BLEED, HYPERKALEMIA AND GILBERT. Chief complaint is extreme weakness. Patient arrived via stretcher from ER. Monitor applied. Initial assessment completed. Vital signs taken and recorded. NORBERT ARTEAGA DO notified of admission to the unit. Orders received. See assessment for past medical history, medications and allergies. Patient and/or family oriented to unit. [facility] visitation policy reviewed. Clothing/patient valuable form completed. MARIA TERESA CHAND
[2019-07-23] MEDS ORDERED: VENT7GM INH (15:47)
[2019-07-23] MEDS ORDERED: TRADJENTA5 M1 PO (15:50)
[2019-07-23] MEDS ORDERED: PERCOCET 5-3251 EACH PO (15:53)
--- NOTE | 2019-07-23 16:17 | NUR ---
Both Dr. John and Dr. Aguilar were notified of consult.
--- NOTE | 2019-07-23 19:50 | NUR ---
DR. BLAKE NOTIFIED OF CBC AND CMP RESULTS. NO NEW ORDERS AT THIS TIME. WILL AIT AND EVALUATE AM LAB RESULTS.
[2019-07-23 20:11] LABS: HEMATOCRIT 26.3 % (37.0-47.0); HEMOGLOBIN 7.3 g/dl (12.0-16.0); MEAN CELL VOLUME 80.9 fl (81.0-99.0); MEAN CORPUSCULAR HGB 22.5 pg (27.0-31.0); MEAN CORPUSCULAR HGB CONC 27.8 g/dl (33.0-37.0); MEAN PLATELET VOLUME 10.3 fl (9.6-12.3); NUCLEATED RED BLOOD CELL 0.2 10*3/uL (0.0-0.0); NUCLEATED RED BLOOD CELL 1.3 % (0.0-0.0); PLATELET COUNT AUTOMATED 344 10*3/uL (130-400); RED BLOOD COUNT 3.25 10*6/uL (4.10-5.10); RED CELL DISTRI WIDTH 20.4 % (0-14.5); WHITE BLOOD COUNT 13.3 10*3/uL (4.8-10.8)
[2019-07-23 20:19] LABS: TOTAL CELLS COUNTED 100 #CELLS
[2019-07-23 20:20] LABS: OVALOCYTES FEW; PLATELET SUFFICIENCY NORMAL (NORMAL); POLYCHROMASIA SLIGHT
[2019-07-23 20:21] LABS: TARGET CELLS FEW
[2019-07-23 20:27] LABS: CREATININE 3.04 mg/dL (0.55-1.02); POTASSIUM 5.8 mmol/L (3.5-5.1)
[2019-07-23 23:00] LABS: BILIRUBIN NEGATIVE (NEGATIVE); BLOOD 1+ (NEGATIVE); CLARITY CLEAR (CLEAR); COLOR YELLOW (YELLOW); GLUCOSE NEGATIVE (NEGATIVE); KETONE NEGATIVE (NEGATIVE); LEUKO ESTERASE 1+ (NEGATIVE); NITRITE NEGATIVE (NEGATIVE); PH 5.5 (5.0-9.0); SPECIFIC GRAVITY >= 1.030 (1.005-1.030); UROBILINOGEN 0.2 E.U./dl (0.2-1.0)
[2019-07-23 23:14] LABS: BACTERIA 2+
[2019-07-24] VITALS (10 sets, daily range): BP systolic 114–147; BP diastolic 36–66
[2019-07-24 05:50] LABS: MEAN CELL VOLUME 81.2 fl (81.0-99.0); MEAN CORPUSCULAR HGB 22.9 pg (27.0-31.0); MEAN CORPUSCULAR HGB CONC 28.2 g/dl (33.0-37.0); MEAN PLATELET VOLUME 9.4 fl (9.6-12.3); NUCLEATED RED BLOOD CELL 0.1 10*3/uL (0.0-0.0); NUCLEATED RED BLOOD CELL 0.6 % (0.0-0.0); PLATELET COUNT AUTOMATED 282 10*3/uL (130-400); RED BLOOD COUNT 2.71 10*6/uL (4.10-5.10); RED CELL DISTRI WIDTH 20.5 % (0-14.5); WHITE BLOOD COUNT 13.1 10*3/uL (4.8-10.8)
[2019-07-24 05:54] LABS: HEMOGLOBIN 6.2 g/dl (12.0-16.0)
[2019-07-24 06:05] LABS: ACT PARTIAL THROMBO TIME 26.3 SECONDS (20.0-32.1); INTERNATIONAL NORM RATIO 1.1 (2.0-3.5)
[2019-07-24 06:09] LABS: ALBUMIN 2.5 gm/dl (3.1-4.5); POTASSIUM 5.5 mmol/L (3.5-5.1)
[2019-07-24 06:16] LABS: CREATININE 2.46 mg/dL (0.55-1.02); FREE T4 1.01 ng/dl (0.76-1.46); PHOSPHOROUS 4.3 mg/dL (2.5-4.9); THYROID STIM HORMONE (HS) 0.587 uIU/ml (0.358-4.75); TOTAL PROTEIN 5.7 gm/dL (6.4-8.2)
--- NOTE | 2019-07-24 06:20 | NUR ---
NOTIFIED DR. BLAKE OF HGB RESULT. ORDERS RECEIVED TO TRANSFUSE ANOTHER UNIT OF PRBC.
--- NOTE | 2019-07-24 06:28 | NUR ---
BLOOD TRANSFUSION INITIATED. PATIENT TOLERATING WELL. CALL LIGHT WITHIN REACH.
[2019-07-24 07:08] LABS: MICROCYTOSIS SLIGHT; OVALOCYTES FEW; PLATELET SUFFICIENCY NORMAL (NORMAL); POLYCHROMASIA SLIGHT; TOTAL CELLS COUNTED 100 #CELLS
[2019-07-24 07:09] LABS: TARGET CELLS FEW
[2019-07-24 07:29] LABS: TOXIC GRANULATION SLIGHT
[2019-07-24 08:00] LABS: DIFFERENTIAL COMMENT COMMENT:
[2019-07-24 08:01] LABS: VITAMIN D, 25-HYDROXY 39.3 ng/mL (30-100)
--- NOTE | 2019-07-24 10:17 | NUR ---
aWAKE AND ALERT THIS am, Transfusion complete at 0902. [facility] dc'd post transfusion .
--- NOTE | 2019-07-24 10:59 | NUR ---
DR CHARLTON CALLED ABOUT PERCOCET FROM HOME - HE SAID HE WILL ORDER IT
[2019-07-24 12:31] LABS: HEMATOCRIT 25.7 % (37.0-47.0); HEMOGLOBIN 7.5 g/dl (12.0-16.0); MEAN CELL VOLUME 81.8 fl (81.0-99.0); MEAN CORPUSCULAR HGB 23.9 pg (27.0-31.0); MEAN CORPUSCULAR HGB CONC 29.2 g/dl (33.0-37.0); MEAN PLATELET VOLUME 9.9 fl (9.6-12.3); NUCLEATED RED BLOOD CELL 0.2 10*3/uL (0.0-0.0); NUCLEATED RED BLOOD CELL 1.1 % (0.0-0.0); PLATELET COUNT AUTOMATED 284 10*3/uL (130-400); RED BLOOD COUNT 3.14 10*6/uL (4.10-5.10); RED CELL DISTRI WIDTH 19.7 % (0-14.5); WHITE BLOOD COUNT 15.9 10*3/uL (4.8-10.8)
[2019-07-24 12:43] LABS: CREATININE 2.34 mg/dL (0.55-1.02); POTASSIUM 4.8 mmol/L (3.5-5.1)
--- NOTE | 2019-07-24 12:45 | NUR ---
States pain med was effective to reduce pain to 7/10 . states is never pain free usually around 5/10. Taxhycardic w. rate 140. Dr. Paiz was notified. Orders were recieved.
[2019-07-24 12:53] LABS: OVALOCYTES FEW; PLATELET SUFFICIENCY NORMAL (NORMAL); POLYCHROMASIA SLIGHT; TARGET CELLS FEW; TOTAL CELLS COUNTED 100 #CELLS
[2019-07-24 12:54] LABS: MICROCYTOSIS SLIGHT; TOXIC GRANULATION SLIGHT
--- NOTE | 2019-07-24 14:15 | NUR ---
Dr. Ingram called in and orders were recieved. IV start to LA and Cardizem gtt bolus given, gtt to 10mg/h
--- NOTE | 2019-07-24 14:17 | NUR ---
Message left as to consult w/ Dr. Ingram ans machine service.
--- NOTE | 2019-07-24 16:48 | NUR ---
Dr. Aguilar was called re: diminished UO. Orders were recieved. John cath was inserted w/o difficulty . Dtr and sister called in and update was given.
[2019-07-24 19:18] LABS: HEMATOCRIT 25.5 % (37.0-47.0); HEMOGLOBIN 7.4 g/dl (12.0-16.0); MEAN CELL VOLUME 82.3 fl (81.0-99.0); MEAN CORPUSCULAR HGB 23.9 pg (27.0-31.0); MEAN PLATELET VOLUME 10.2 fl (9.6-12.3); NUCLEATED RED BLOOD CELL 0.2 10*3/uL (0.0-0.0); NUCLEATED RED BLOOD CELL 0.7 % (0.0-0.0); PLATELET COUNT AUTOMATED 287 10*3/uL (130-400); RED CELL DISTRI WIDTH 19.8 % (0-14.5); WHITE BLOOD COUNT 21.4 10*3/uL (4.8-10.8)
[2019-07-24 19:36] LABS: POLYCHROMASIA SLIGHT; TOTAL CELLS COUNTED 100 #CELLS
[2019-07-24 19:37] LABS: MICROCYTOSIS SLIGHT; TARGET CELLS FEW
[2019-07-24 19:38] LABS: OVALOCYTES FEW; PLATELET SUFFICIENCY NORMAL (NORMAL)
--- NOTE | 2019-07-24 20:00 | NUR ---
PT DOZING. HR 80'S. CARDIZEM GTT TITRATED DOWN TO 10MG/HR.
--- NOTE | 2019-07-24 22:21 | NUR ---
ASSISTED WITH HIBICLENS BATH AND BED LINENS CHANGED. CARDIZEM GTT TITRATED DOWN TO 5MG/HR FOR HR 80'S AFLUTTER.
[2019-07-25] VITALS (22 sets, daily range): BP systolic 86–144; BP diastolic 31–71
--- NOTE | 2019-07-25 00:16 | NUR ---
ZOFRAN WAS GIVEN AT 2320 FOR PT C/O NAUSEA. SHE IS ASSISTED BACK UP TO BSC PER HER REQUEST. SHE IS LOUDLY BELCHING AND SAYS "IT WAS THAT MEATLOAF, IT JUST KEEPS REPEATING ON ME." PT TOLERATING CARDIZEM AT 5MG/HR.
--- NOTE | 2019-07-25 00:45 | NUR ---
CONVERTED TO NSR 70'S.
--- NOTE | 2019-07-25 01:06 | NUR ---
DR PACE NOTIFIED THAT PT REQUESTING ANOTHER PERCOCET. SHE IS SITTING ON THE BSC AND STATES FEELING ACHY AND JUST MISERABLE. ALSO NOTIFIED DR PACE THAT PT CONVERTED TO NSR 70'S AND IS ON CARDIZEM GTT AT 5MG/HR.
--- NOTE | 2019-07-25 01:17 | NUR ---
PT VERY CONVERSIVE. MEDICATED WITH PERCOCET PER PT REQUEST FOR GENERALIZED ACHING AND "I USUALLY TAKE ONE AT BEDTIME. I'M ALLOWED." ALSO TURNED CARDIZEM GTT OFF HR REMAINS UPPER 60'S NSR AND PT DID RECEIVE HER PO DOSE PRIOR TO CARDIZEM GTT INITIATION.
--- NOTE | 2019-07-25 01:27 | NUR ---
PT RESTING IN BED WITH EYES CLOSED, BODY RELAXED, RESPIRATIONS UNLABORED, SKIN W/D. HR REMAINS NSR WITH A RATE OF 70. PERCOCET GIVEN AT 0015 APPEARS TO BE EFFECTIVE.
--- NOTE | 2019-07-25 02:55 | NUR ---
PT DOZING, BODY RELAXED, HR REMAINS NSR 70'S.
[2019-07-25 04:57] LABS: HEMATOCRIT 25.4 % (37.0-47.0); HEMOGLOBIN 7.2 g/dl (12.0-16.0); MEAN CELL VOLUME 81.7 fl (81.0-99.0); MEAN CORPUSCULAR HGB 23.2 pg (27.0-31.0); MEAN CORPUSCULAR HGB CONC 28.3 g/dl (33.0-37.0); MEAN PLATELET VOLUME 9.9 fl (9.6-12.3); NUCLEATED RED BLOOD CELL 0.2 10*3/uL (0.0-0.0); NUCLEATED RED BLOOD CELL 0.7 % (0.0-0.0); PLATELET COUNT AUTOMATED 284 10*3/uL (130-400); RED BLOOD COUNT 3.11 10*6/uL (4.10-5.10); RED CELL DISTRI WIDTH 20.1 % (0-14.5); WHITE BLOOD COUNT 21.6 10*3/uL (4.8-10.8)
[2019-07-25 05:04] LABS: ALBUMIN 2.7 gm/dl (3.1-4.5); CREATININE 2.02 mg/dL (0.55-1.02); PHOSPHOROUS 4.2 mg/dL (2.5-4.9); POTASSIUM 4.6 mmol/L (3.5-5.1)
[2019-07-25 05:31] LABS: BURR CELLS FEW; PLATELET SUFFICIENCY NORMAL (NORMAL); TOTAL CELLS COUNTED 100 #CELLS
--- NOTE | 2019-07-25 07:31 | NUR ---
Shift chart check completed.24 HR chart check completed.
--- NOTE | 2019-07-25 09:00 | NUR ---
Jackaroo in to talk to patient. Patient states lives at home alone with her family checking in on her. There are 0 steps in the home. Physician: Dr. Twan Meza Pharmacy: [facility] Home health services: none Patient's level of ADLs: INDEPENDENT Patient has working utilities: yes DME: O2 @ 2L nc at HS, portable O2 tanks, O2 supplier [facility] Follow-up physician's appointment after d/c: will be made by the hospitalist nurse director upon discharge Does patient want to access PORTAL?: no Discharge plan discussed with patient. She lives at home alone with her family checking in on her Family at the bedside. She is independent in her ADLs and ambulation. Discussed home health care services and she would like light house cleaning. Her family will transport on discharge. She is scheduled for an EGD today. Treating COPD. Hgb 7.2 after 2 units of PRBCs. BRUNO AGUILA
--- NOTE | 2019-07-25 09:04 | NUR ---
DR DUNNE NOTIFIED OF AM LABS, ORDERS FOR TRANSFUSION RECEIVED.
--- NOTE | 2019-07-25 09:17 | NUR ---
ON ASSESSMENT EARLIER THIS AM PT ALERT AND ORIENTED. CLEAR LIQUIDS THEN NPO AFTERWARDS. DR MAY HAS VISITED. ORAL CARDIZEM CD HAS BEEN RESUMED AND DOSE GIVEN. IV FLUIDS CONTINUE. ROUTINE SCHEDULED PERCOCET HAS BEEN GIVEN. SEE ALL PERTINENT INTERVENTIONS.
--- NOTE | 2019-07-25 09:27 | NUR ---
DR JOHNSON IN TO SEE PATIENT. UPDATED ON PLAN OF CARE.
--- NOTE | 2019-07-25 10:18 | NUR ---
PT TO ULTRASOUND FOR RENAL ULTRASOUND. DR ARANDA HAS VISITED.
--- NOTE | 2019-07-25 10:45 | NUR ---
Patient identified by arm band, by myself and Miranda Palacios. Vital signs recorded. Blood unit number #3 verified by 2 R.N.'s. I.V. site satisfactory. Unit [id number] started at a KVO rate with Normal Saline. RICHARD MENDOZA L
--- NOTE | 2019-07-25 11:20 | NUR ---
CONSTANT ATTENDANCE FOR FIRST 15 MINUTES WITHOUT SIGNS OF REACTION. INFUSION RATE INCREASED TO 100ML/HR.
--- NOTE | 2019-07-25 11:48 | NUR ---
TRANSFUSION CONTINUES WITHOUT SYMPTOMS OF REACTION. VISITORS AT THE BEDSIDE. REMAINS NPO FOR EGD THIS AFTERNOON.
--- NOTE | 2019-07-25 13:01 | NUR ---
TRANSFUSION CONTINUES. SURGERY PERSONNEL HERE. PT TO SURGERY VIA BED WITH SURGERY PERSONNEL. SHON AWARE THAT TRANSFUSION WAS STARTED AT 1045 AND NEEDS TO BE COMPLETE BY 1445.
--- NOTE | 2019-07-25 15:32 | NUR ---
PT HAS RETURNED FROM SURGERY. SHE'S ALERT AND ORIENTED. THE BLOOD TRANSFUSION FINISHED IN SURGERY. RECONNECTED TO IV FLUIDS. VS TAKEN AND RECORDED. HER BROTHER IN TO VISIT.
--- NOTE | 2019-07-25 16:37 | NUR ---
PT ATE FULL LIQUIDS AND TOLERATED WELL AND IS NOW ASLEEP.
--- NOTE | 2019-07-25 19:02 | NUR ---
PT WAS UP TO BSC FOR LARGE YELLOW, MUSHY, LIQUID BM. WHEN GETTING BACK TO BED PT C/O DIZZINESS. MONITOR SHOWER JUNCTIONAL RHYTHM AND HER BP 86 SYSTOLIC. PULSE OX LESS THAN 90, TITRATED O2 UP TO 4L/MIN. DR PACE NOTIFIED OF THESE EVENTS. DR MAY PAGED VIA ANSWERING SERVICE. STAT EKG ORDERED FOR CHANGE IN RHYTHM.
--- NOTE | 2019-07-25 19:12 | NUR ---
PT RESTING WITH HER EYES CLOSED. SKIN WARM/DRY. MONITOR CONTINUES JUNCTIONAL.
--- NOTE | 2019-07-25 19:16 | NUR ---
DR MAY CALLED ME. APPRISED OF PT'S RHYTHM AND BP. REVIEWED MEDS/VITALS. ORDERS RECEIVED.
[2019-07-25 19:40] LABS: HEMATOCRIT 31.8 % (37.0-47.0); HEMOGLOBIN 9.2 g/dl (12.0-16.0); MEAN CELL VOLUME 84.8 fl (81.0-99.0); MEAN CORPUSCULAR HGB 24.5 pg (27.0-31.0); MEAN CORPUSCULAR HGB CONC 28.9 g/dl (33.0-37.0); NUCLEATED RED BLOOD CELL 0.3 10*3/uL (0.0-0.0); NUCLEATED RED BLOOD CELL 1.4 % (0.0-0.0); PLATELET COUNT AUTOMATED 265 10*3/uL (130-400); RED BLOOD COUNT 3.75 10*6/uL (4.10-5.10); RED CELL DISTRI WIDTH 19.5 % (0-14.5); WHITE BLOOD COUNT 19.6 10*3/uL (4.8-10.8)
[2019-07-25 20:17] LABS: TOTAL CELLS COUNTED 100 #CELLS
[2019-07-25 20:18] LABS: PLATELET SUFFICIENCY NORMAL (NORMAL); POLYCHROMASIA SLIGHT
[2019-07-26] VITALS: BP 153/50
[2019-07-26 04:00] VITALS: BP 138/40
[2019-07-26 05:28] LABS: HEMATOCRIT 30.7 % (37.0-47.0); HEMOGLOBIN 8.9 g/dl (12.0-16.0); MEAN CORPUSCULAR HGB 24.1 pg (27.0-31.0); MEAN PLATELET VOLUME 10.3 fl (9.6-12.3); NUCLEATED RED BLOOD CELL 0.3 10*3/uL (0.0-0.0); PLATELET COUNT AUTOMATED 273 10*3/uL (130-400); RED CELL DISTRI WIDTH 19.6 % (0-14.5); WHITE BLOOD COUNT 15.5 10*3/uL (4.8-10.8)
[2019-07-26 05:44] LABS: ALBUMIN 2.8 gm/dl (3.1-4.5); CREATININE 1.96 mg/dL (0.55-1.02); POTASSIUM 4.9 mmol/L (3.5-5.1); TOTAL PROTEIN 6.1 gm/dL (6.4-8.2)
[2019-07-26 06:56] LABS: PLATELET SUFFICIENCY NORMAL (NORMAL); POLYCHROMASIA SLIGHT; TARGET CELLS FEW; TOTAL CELLS COUNTED 100 #CELLS
--- NOTE | 2019-07-26 07:48 | NUR ---
Shift chart check completed.24 HR chart check completed.
[2019-07-26 08:00] VITALS: BP 132/40
--- NOTE | 2019-07-26 08:33 | NUR ---
ON ASSESSMENT PATIENT AROUSES EASILY TO HER NAME.ORIENTED. ONLY COMPLAINT IS OF "HUNGER PAIN". IV FLUIDS CONTINUE AT 80/HR. NO MELENA, NO HEMATACHEZIA, NOR HEMATEMESIS. ABDOMEN IS SOFT WITH NORMOACTIVE BOWEL SOUNDS. MONITOR IS NSR. DR MAY HAS VISITED. REVIEWED MEDS/LABS WITH HIM.
--- NOTE | 2019-07-26 11:35 | NUR ---
PT RESTING EASILY. SHE REFUSED AM CARE THIS AM.
[2019-07-26 12:00] VITALS: BP 135/36
--- NOTE | 2019-07-26 12:56 | NUR ---
PT STARTING TO DRINK HER READI-CAT.
--- NOTE | 2019-07-26 14:14 | NUR ---
PT ATTEMPTING TO DRINK CT BARIUM. SHE FEELS PRETTY FULL. MCKEE CATHETER REMOVED PER ORDER.
--- NOTE | 2019-07-26 15:08 | NUR ---
REPORT HAS BEEN GIVEN TO KELLY THORPE RN. PT AWAITING TRANSPORT TO RADIOLOGY FOR CT ABDOMEN AND PELVIS. SHE HAS DRANK ONE COMPLETE BOTTLE OF CT BARIUM AND HAS BEEN ATTEMPTING TO DRINK MORE OF THE SECOND BOTTLE. TRANSPORT WILL RETURN PT TO 405-1.
--- NOTE | 2019-07-26 15:15 | NUR ---
PT TO [facility]BERTO VIA W/C. ALL OF HER BELONGINGS TO 405-1.
--- NOTE | 2019-07-26 15:57 | NUR ---
I PHONED PT'S SISTER HUMBLE AND LET HER KNOW PT NOW IN 405-1.
[2019-07-26 16:00] VITALS: BP 135/36
[2019-07-26 20:00] VITALS: BP 138/44
--- NOTE | 2019-07-26 23:00 | NUR ---
REPORT RECEIVED FROM YAZMIN RN. PT SLEEPING AT THIS TIME. IV FLUIDS INFUSING WITHOUT DIFFICULTY. CALL LIGHT IN REACH
[2019-07-27] VITALS: BP 110/38
[2019-07-27 06:21] LABS: HEMOGLOBIN 8.9 g/dl (12.0-16.0); MEAN CELL VOLUME 84.2 fl (81.0-99.0); MEAN CORPUSCULAR HGB 24.2 pg (27.0-31.0); MEAN CORPUSCULAR HGB CONC 28.7 g/dl (33.0-37.0); MEAN PLATELET VOLUME 10.7 fl (9.6-12.3); NUCLEATED RED BLOOD CELL 0.4 10*3/uL (0.0-0.0); NUCLEATED RED BLOOD CELL 2.9 % (0.0-0.0); PLATELET COUNT AUTOMATED 286 10*3/uL (130-400); RED BLOOD COUNT 3.68 10*6/uL (4.10-5.10); RED CELL DISTRI WIDTH 19.9 % (0-14.5)
[2019-07-27 06:47] LABS: OVALOCYTES FEW; PLATELET SUFFICIENCY NORMAL (NORMAL); POLYCHROMASIA SLIGHT; SCHISTOCYTES FEW; TARGET CELLS FEW; TOTAL CELLS COUNTED 100 #CELLS
[2019-07-27 06:51] LABS: CREATININE 1.8 mg/dL (0.55-1.02); POTASSIUM 5.4 mmol/L (3.5-5.1)
[2019-07-27 08:00] VITALS: BP 144/52
--- NOTE | 2019-07-27 09:00 | NUR ---
Field Sales Consultant in to see patient. No new needs or request at this time. She denies any home needs. When medically stable she will be discharged to home. Treating COPD, renal US -, IVFs, Cr 1.8 and trending down, Dr. Aguilar and Dr. Davey consulted.
--- NOTE | 2019-07-27 11:15 | NUR ---
Occupational Therapy evaluation completed on 4 with full eval to follow. Precautions include fall risk; unsteady in standing,dizzy with positional changes,NPO, generalized weakness, IV UE, moderate complexity level 56878. Recommend OT per POC for safe ADl performance, functional mobility,activity tolerance and energy conservation/work simplification education and home with home health SN,OT,PT upon d/c. Thank you. Dionna Suarez OTR/l
[2019-07-27 12:00] VITALS: BP 155/50
--- NOTE | 2019-07-27 15:29 | NUR ---
PT initial evaluation completed on 4th floor. Pt initially did not want to participate in this evaluation d/t feeling extremely tired but pt changed her mind. Pt wearing oxgyen. Pt participative, fatigues very easily. Pt requires assist walking with walker and SBA. Pt felt wobbly walking a few steps. Pt will benefit from continued PT to help improve strength and endurance. Pt lives alone. Based on pt's poor activity tolerance and weakness, recommending SNF. Moderate complexity PT evaluation. Thank you for this referal, Margarita Madison, PT.
[2019-07-27 16:00] VITALS: BP 151/88
--- NOTE | 2019-07-27 19:10 | NUR ---
IN TO SEE PATIENT AT THIS TIME. RESPIRATIONS EASY, NONLABORED. PT HAS NO COMPLAINTS AT THIS TIME. CALL LIGHT WITHIN REACH. WILL MONITOR.
[2019-07-27 20:00] VITALS: BP 129/45
[2019-07-27 20:30] VITALS: BP 134/52
[2019-07-28] VITALS: BP 130/46
--- NOTE | 2019-07-28 01:31 | NUR ---
24 HR chart check completed.
[2019-07-28 06:44] LABS: HEMATOCRIT 31.1 % (37.0-47.0); HEMOGLOBIN 8.7 g/dl (12.0-16.0); MEAN CELL VOLUME 83.6 fl (81.0-99.0); MEAN CORPUSCULAR HGB 23.4 pg (27.0-31.0); MEAN PLATELET VOLUME 10.2 fl (9.6-12.3); NUCLEATED RED BLOOD CELL 0.3 10*3/uL (0.0-0.0); PLATELET COUNT AUTOMATED 274 10*3/uL (130-400); RED BLOOD COUNT 3.72 10*6/uL (4.10-5.10); RED CELL DISTRI WIDTH 20.7 % (0-14.5); WHITE BLOOD COUNT 10.4 10*3/uL (4.8-10.8)
[2019-07-28 07:05] LABS: ALBUMIN 2.8 gm/dl (3.1-4.5); CREATININE 1.47 mg/dL (0.55-1.02); POTASSIUM 5.7 mmol/L (3.5-5.1); TOTAL PROTEIN 5.9 gm/dL (6.4-8.2)
[2019-07-28 07:41] LABS: PLATELET SUFFICIENCY NORMAL (NORMAL); POLYCHROMASIA SLIGHT; SCHISTOCYTES FEW; TOTAL CELLS COUNTED 100 #CELLS
[2019-07-28 08:00] VITALS: BP 120/64
--- NOTE | 2019-07-28 09:00 | NUR ---
Navigation Officer in to see patient. No new needs or request at this time. She denies any home needs. When medically stable she will be discharged to home. Treating COPD with zithromax, rocephin, solumedrol, and duonebs. EGD showed gastritis and receiving reglan.
--- NOTE | 2019-07-28 11:10 | NUR ---
PHYSICAL THERAPY Patient seen this am 1;1 for therapy visit and was supine in bed upon therapist arrival. Patient identified by name / and presents with continuous O2-2L via NC. Patient SpO2 93%, HR 83 bpm prior to treatment and remained WFL's throughout treatment session. Patient transfers supine to sit EOB with CGA, then sit to stand CGA, ambulalating 20'x 2 to bathroom while demonstrating a little "wobbly" gait pattern. Patient declined use of AD, stating she does not use anything at home and returend to supine in bed with increased fatigue. Patient remained in bed with call light, tray table, telephone and bed alarm for safety. Will continue per POC as tolerated, total treatment time 16 minutes. Jerod Mauro, TECHNICAL EXPERT
--- NOTE | 2019-07-28 11:12 | NUR ---
OT NOTE Pt was seen this A.M. 1:1 for 13 minute OT session. Upon arrival pt was supine in bed. Pt identified by name and and had no complaints at this time. Pt presented to therapy with continuous 2L-O2 via NC which she remained on throughout the entire session. Pt transferred supine to sit EOB with Vivian. While sitting EOB pt was educated on energy conservation technique for donning socks. Pt then donned B socks with good carry over while bringing one leg over her other knee, task completed with SBA. Therapist noted that pt presented with "slouched" posture, educated pt on posture and breathing techniques. Pt's SpO2 reading at 87% after aprox 60 seconds of pursed lip breathing SpO2 raised to 91%. Sit to stand completed from bed level with CGA, upon inital rise pt had LOB forwards that required Vivian to correct. Functional mobility was then completed to the bathroom with Vivian BASKET PERSON. There she transferred on/off standard commode with CGA, clothing management completed with CGA, and toilet hygiene completed with supervision while seated. She then stood sink side while washing her hands with CGA. While standing sink side pt did have one LOB backwards that required Vivian to correct. Functional mobility was then completed back to the EOB where she transferred sit to supine with SBA; however, required maxA X 2 for repositioning in bed. There she was left with call light in hand, tray table in place, and bed alarm activated for safety. Continue with rec D/C plan to home with home health. ANTOINE Hercules
--- NOTE | 2019-07-28 11:27 | NUR ---
MESSAGE LEFT WITH DR. DUNNE REGARDING COLONOSCOPY BEIN DONE INPATIENT OR OUTPATIENT
[2019-07-28 12:00] VITALS: BP 161/48
--- NOTE | 2019-07-28 13:40 | NUR ---
PREP STARTED FOR COLO IN AM
[2019-07-28 14:47] LABS: BILIRUBIN NEGATIVE (NEGATIVE); BLOOD NEGATIVE (NEGATIVE); CLARITY CLEAR (CLEAR); COLOR YELLOW (YELLOW); GLUCOSE 2+ (NEGATIVE); KETONE NEGATIVE (NEGATIVE); LEUKO ESTERASE NEGATIVE (NEGATIVE); NITRITE NEGATIVE (NEGATIVE); SPECIFIC GRAVITY 1.015 (1.005-1.030); UROBILINOGEN 0.2 E.U./dl (0.2-1.0)
[2019-07-28 15:01] LABS: YEAST TRACE
[2019-07-28 16:00] VITALS: BP 154/56
[2019-07-28 20:00] VITALS: BP 140/48
--- NOTE | 2019-07-28 22:07 | NUR ---
24 HOUR CHART CHECK COMPLETE.
--- NOTE | 2019-07-28 23:00 | NUR ---
SPOKE WITH DR AYALA REGARDING PT CONVERTING BACK TO AFIB AND HR RANGING ANYWHERE FROM 115-130'S. STATES TO CONSULT CARDIOLOGY.
--- NOTE | 2019-07-28 23:06 | NUR ---
SPOKE WITH DR GEORGE REGARDING PT CONVERTING BACK INTO A-FLUTTER. PT HEART RATE AT THIS TIME IS 109, HIGHEST BEING 135. T.O. TAKEN FOR BOLUS IV CARDIZEM [address] GEORGE SAID TO NOTIFY HIM IF PTS HEART RATES SUSTAINS 130'S, BUT DOESN'T SEE A DRIP NECESSARY AT THIS TIME.
[2019-07-29] VITALS (9 sets, daily range): BP systolic 132–172; BP diastolic 45–82
--- NOTE | 2019-07-29 03:33 | NUR ---
PT CONVERTED BACK TO NORMAL SINUS RHYTHM AT THIS TIME, HR IS 89.
--- NOTE | 2019-07-29 05:49 | NUR ---
COLO PREP COMPLETE. PT RAN CLEAR AFTER ADMINISTRATION OF FLEETS ENEMA AND SEVERAL PASSES OF 1500 CC TAP WATER ENEMA.
[2019-07-29 07:01] LABS: HEMATOCRIT 29.4 % (37.0-47.0); HEMOGLOBIN 8.5 g/dl (12.0-16.0); MEAN CELL VOLUME 81.4 fl (81.0-99.0); MEAN CORPUSCULAR HGB 23.5 pg (27.0-31.0); MEAN CORPUSCULAR HGB CONC 28.9 g/dl (33.0-37.0); MEAN PLATELET VOLUME 10.5 fl (9.6-12.3); NUCLEATED RED BLOOD CELL 0.3 10*3/uL (0.0-0.0); NUCLEATED RED BLOOD CELL 2.2 % (0.0-0.0); PLATELET COUNT AUTOMATED 270 10*3/uL (130-400); RED BLOOD COUNT 3.61 10*6/uL (4.10-5.10); RED CELL DISTRI WIDTH 20.3 % (0-14.5); WHITE BLOOD COUNT 11.5 10*3/uL (4.8-10.8)
[2019-07-29 07:18] LABS: ALBUMIN 2.8 gm/dl (3.1-4.5); POTASSIUM 4.8 mmol/L (3.5-5.1)
[2019-07-29 07:21] LABS: CREATININE 1.12 mg/dL (0.55-1.02); TOTAL PROTEIN 5.5 gm/dL (6.4-8.2)
[2019-07-29 07:48] LABS: TARGET CELLS FEW; TOTAL CELLS COUNTED 100 #CELLS
[2019-07-29 07:49] LABS: PLATELET SUFFICIENCY NORMAL (NORMAL)
[2019-07-29 07:50] LABS: OVALOCYTES FEW
--- NOTE | 2019-07-29 08:19 | NUR ---
PATIENT RESTING COMFORTABLY IN BED WATCHING TV, NO COMPLAINTS AT THIS TIME, WILL CONTINUE TO MONITOR. HARRIET ALARCON SPMANNIECC
--- NOTE | 2019-07-29 08:20 | NUR ---
PT WOKE EASILY IS A&OX3, SITTING UP IN BED NO COMPLAINTS AT THIS TIME. JUAN C MONTEJO SPNRCC
--- NOTE | 2019-07-29 09:00 | NUR ---
Cafeteria Supervisor in to see patient. No new needs or request at this time. She denies any home needs. When medically stable she will be discharged to home. Treating COPD with zithromax, rocephin, solumedrol, and duonebs. [place] scheduled for today.
--- NOTE | 2019-07-29 10:09 | NUR ---
PATIENT RESTING COMFORTABLY IN BED, PATIENT NPO AT THIS TIME PER ORDERS. HARRIET ALARCON SPCC
--- NOTE | 2019-07-29 11:00 | NUR ---
PHYSICAL THERAPY Patient seen this am 1:1 for therapy visit and was resting supine in bed upon therapist arrival. Patient identified by name / and reports being scheduled for a Colonoscopy this afternoon. Patient presents with continuous O2-2L via NC and was pleasant, transfering supine to sit EOB with MIN A, then sit to stand CGA. Patient ambulates without AD, 50'x 2, LASTEX THREAD WINDER/CGA, demonstrating bouts of unsteady gait pattern, especially during 180 turns. Patient also fatigues quickly, requiring brief standing rest break < 20 seconds with v/c for purse lip breathing technique. Patient returned to supine in bed and remained with call light, tray table, telephone and bed alarm for safety. Will continue per POC as tolerated, total treatment time 16 minutes. Jerod Mauro, SURFACER
--- NOTE | 2019-07-29 11:00 | NUR ---
OT NOTE Pt was seen this A.M. 1:1 for 20 minute OT session. Upon arrival pt was supine in bed. Pt identified by name and and had no complaints at this time. Pt presented to therapy with continuous 2L-O2 via NC which she remained on throughout the entire session. Pt transferred supine to sit EOB with Vivian. While sitting EOB pt donned her L sock with SBA and R sock with Vivian. Sit to stand completed from bed level with Vivian and use of w/w for UE support. Challenged pt's static standing tolerance needed for increased I in self care tasks and functional transfers. Pt was able to tolerate aprox 4 minutes at a time before sitting due to fatigue. Functional mobility completed to the bathroom and back with CGA and use of w/w with one standing rest break throughout. Pt then transferred back into bed sit to supine with Vivian and was repositioned with maxA X 2. There she was left with call light in hand, tray table in place, and phone in reach. Continue with rec D/C plan to home with home health. MEGHAN Hercules/Zach
--- NOTE | 2019-07-29 11:21 | NUR ---
PATIENTS BS 262, DISCUSSED WITH NURSE ON DUTY AT TIME AND ADVISED TO GO AHEAD AND COVER WITH RECOMMENDED 6 UNITS, INSULIN GIVEN, PATIENT TOLERATED WELL, WILL CONTINUE TO MONITOR. HARRIET ALARCON SPCC
--- NOTE | 2019-07-29 12:53 | NUR ---
PATIENT REMINS NPO, RESTING PEACEFULLY IN BED. HARRIET ALARCON SPNRCC
--- NOTE | 2019-07-29 13:00 | NUR ---
TAKEN DOWN TO OR FOR COLONOSCOPY
--- NOTE | 2019-07-29 14:43 | NUR ---
PHYSICAL THERAPY CO-SIGN I approve of the Physical Therapy notes written above. Farnaz Bailey PT
[2019-07-29] MEDS ORDERED: STIOLTO RESPIMAT4 GM INH (17:52)
--- NOTE | 2019-07-29 18:38 | NUR ---
PT COMPLAINS OF NAUSEA/DRY HEAVING. MEDICATED WITH ZOFRAN. WILL MONITOR FOR RELIEF. VOICES NO OTHER CONCERNS AT THIS TIME. RESTING IN BED. CALL LIGHT WITHIN REACH
--- NOTE | 2019-07-29 21:00 | NUR ---
PT ASSESSMENT COMPLETE AT THIS TIME. BP WNL. RESPIRATIONS UNLABORED ON 3L NC. PT C/O PAIN BUT STATES THAT SCHEDULED PERCOCET WILL HELP. NO OTHER S/S OF DISTRESS ARE NOTED AT THIS TIME. ALL SAFETY MEASURES ARE IN PLACE. HOB ELEVATED. CALL LIGHT IN REACH.
[2019-07-30] VITALS: BP 145/47
--- NOTE | 2019-07-30 05:02 | NUR ---
24 HR chart check completed.
--- NOTE | 2019-07-30 05:02 | NUR ---
PT RESTING IN BED, RESPIRATIONS EASY AND UNLABORED ON 2L NC. NO S/S OF DISTRESS NOTED. ALL SAFETY MEASURES IN PLACE. CALL LIGHT IN REACH.
[2019-07-30 07:33] LABS: HEMATOCRIT 30.6 % (37.0-47.0); HEMOGLOBIN 8.6 g/dl (12.0-16.0); MEAN CELL VOLUME 84.3 fl (81.0-99.0); MEAN CORPUSCULAR HGB 23.7 pg (27.0-31.0); MEAN CORPUSCULAR HGB CONC 28.1 g/dl (33.0-37.0); MEAN PLATELET VOLUME 10.5 fl (9.6-12.3); NUCLEATED RED BLOOD CELL 0.3 10*3/uL (0.0-0.0); NUCLEATED RED BLOOD CELL 2.7 % (0.0-0.0); PLATELET COUNT AUTOMATED 269 10*3/uL (130-400); RED BLOOD COUNT 3.63 10*6/uL (4.10-5.10); WHITE BLOOD COUNT 10.4 10*3/uL (4.8-10.8)
[2019-07-30 08:00] VITALS: BP 152/70
[2019-07-30 08:03] LABS: ALBUMIN 2.8 gm/dl (3.1-4.5); POTASSIUM 5.4 mmol/L (3.5-5.1)
[2019-07-30 08:06] LABS: CREATININE 1.11 mg/dL (0.55-1.02); TOTAL PROTEIN 5.6 gm/dL (6.4-8.2)
[2019-07-30 08:45] LABS: POLYCHROMASIA SLIGHT; TOTAL CELLS COUNTED 100 #CELLS
[2019-07-30 08:46] LABS: PLATELET SUFFICIENCY NORMAL (NORMAL); TARGET CELLS FEW
[2019-07-30 12:00] VITALS: BP 167/51
--- NOTE | 2019-07-30 14:51 | NUR ---
DR XIAO CALLED UNIT AND ASKED THIS RN TO CALLED RENAL TEAM RE: K OF 5.4. DR VILLEGAS CALLED AND NOTIFIED. HE STATED NO TREATMENT NEEDED. DR ANDERSON CALLED AND NOTIFIED.
[2019-07-30 16:00] VITALS: BP 117/86
[2019-07-30 20:00] VITALS: BP 125/74
--- NOTE | 2019-07-30 20:06 | NUR ---
NOTIIFIED DR PACE THAT PT HAS FLIPPED INTO A FIB AT THIS TIME. RATE RANGES FROM LOW 100S TO 140S. ORDERS GIVEN TO GIVE PT 2200 DOSAGE OF METOPROLOL AT THIS TIME. WILL GIVE MEDICATION AND MONITOR HEART RATE.
[2019-07-30 20:17] VITALS: BP 146/70
--- NOTE | 2019-07-30 23:30 | NUR ---
CHOCOLATE PRODUCTION MACHINE OPERATOR CALLS AND TELLS THIS NURSE THAT PT HAS CONVERTED BACK TO NSR ON MONITOR AT THIS TIME.
[2019-07-31] VITALS: BP 158/51
--- NOTE | 2019-07-31 02:01 | NUR ---
PT RESTING IN BED. NO S/S OF DISTRESS NOTED. RESPIRATIONS EASY AND UNLABORED ON 2L NC. HR NSR, 65 ON PARAGLIDING INSTRUCTOR. ALL SAFETY MEASURES IN PLACE. CALL LIGHT IN REACH.
--- NOTE | 2019-07-31 05:42 | NUR ---
PT GIVEN TYLENOL 650 MG PO AT THIS TIME FOR C/O BODY ACHES/PAIN. WILL MONITOR FOR EFFECTIVENESS. CALL LIGHT IN REACH.
[2019-07-31 06:16] LABS: HEMATOCRIT 32.4 % (37.0-47.0); MEAN CELL VOLUME 84.4 fl (81.0-99.0); MEAN CORPUSCULAR HGB 23.4 pg (27.0-31.0); MEAN CORPUSCULAR HGB CONC 27.8 g/dl (33.0-37.0); NUCLEATED RED BLOOD CELL 0.2 10*3/uL (0.0-0.0); NUCLEATED RED BLOOD CELL 1.6 % (0.0-0.0); PLATELET COUNT AUTOMATED 257 10*3/uL (130-400); RED BLOOD COUNT 3.84 10*6/uL (4.10-5.10); RED CELL DISTRI WIDTH 21.2 % (0-14.5)
--- NOTE | 2019-07-31 06:42 | NUR ---
TYLENOL EFFECTIVE PER PT.
[2019-07-31 06:49] LABS: BUN 37 mg/dl (7-24); CHLORIDE 112 mmol/L (98-107); CREATININE 1.06 mg/dL (0.55-1.02); POTASSIUM 5.1 mmol/L (3.5-5.1); SODIUM 144 mmol/L (136-145)
[2019-07-31 07:39] LABS: TOTAL CELLS COUNTED 100 #CELLS
[2019-07-31 07:40] LABS: PLATELET SUFFICIENCY NORMAL (NORMAL); SCHISTOCYTES FEW
[2019-07-31 07:41] LABS: POLYCHROMASIA MODERATE; SPHEROCYTES FEW; TARGET CELLS FEW
--- NOTE | 2019-07-31 08:30 | NUR ---
Patient resting quietly with no c/o discomfort. Respirations easy and regular. Vital signs stable. No overt distress. AVI ARAYA R
[2019-07-31] MEDS ORDERED: CARDIZEM CD120 M2 PO (09:28)
[2019-07-31] MEDS ORDERED: LOPRESSOR25 MG PO (09:29)
[2019-07-31] MEDS ORDERED: APRESOLINE10 MG PO (09:29)
[2019-07-31] MEDS ORDERED: AVPAK AZITHROM250 M1 PO (09:29)
[2019-07-31] MEDS ORDERED: PREDNISONE10 MG PO (09:29)
--- NOTE | 2019-07-31 10:48 | NUR ---
DR DUNNE CELL CALLED RE: DISCHARGE PLAN. NO ANSWER. PT STATES SHE WILL CALL AND MAKE AN APPT WITH DR DUNNE IN THE MORNING HER RIDE IS HERE AND SHE CANNOT WAIT FOR A RETRUN CALL. PT STATES UNDERSTANDING OF DISCHARGE PAPERWORK AND FOLLOW UPS.
--- NOTE | 2019-07-31 10:50 | NUR ---
Discharge instructions reviewed with patient/family. Patient receptive and verbalizes understanding. Follow-up care arranged. Written instructions given to patient/family. AVI ARAYA
--- NOTE | 2019-08-02 07:34 | NUR ---
OCCUPATIONAL THERAPY CO-SIGN I approve of the Occupational Therapy notes written above. KAILEE JOHNSTON OTR/Zach
== END 2019-07-31 11:07 | disposition home or self-care (01) | DRG 377 ==
LOC: ED 11:28 → 4E 13:13 → EDHOLD 13:13 → ICCU 13:13 → 4E 07-26 14:53
PROVIDERS: Emergency Medicine; Hospitalist; Internal Medicine; Internal Medicine Gastroenterology; Internal Medicine Nephrology; ADMIT Family Medicine
PROC: 30233N1 Transfusion of Nonautologous Red Blood Cells into Peripheral Vein, Percutaneous Approach (ICD-10-PCS; principal; 2019-07-23)
PROC: 0DJ08ZZ Inspection of Upper Intestinal Tract, Via Natural or Artificial Opening Endoscopic (ICD-10-PCS; 2019-07-25)
PROC: 0DBN8ZZ Excision of Sigmoid Colon, Via Natural or Artificial Opening Endoscopic (ICD-10-PCS; 2019-07-29)
DX: K57.91 Diverticulosis of intestine, part unspecified, without perforation or abscess with bleeding (principal); N17.0 Acute kidney failure with tubular necrosis; E43 Unspecified severe protein-calorie malnutrition; J44.1 Chronic obstructive pulmonary disease with (acute) exacerbation; D62 Acute posthemorrhagic anemia; E87.1 Hypo-osmolality and hyponatremia; I50.32 Chronic diastolic (congestive) heart failure; D68.59 Other primary thrombophilia; N39.0 Urinary tract infection, site not specified; B17.9 Acute viral hepatitis, unspecified; Z79.4 Long term (current) use of insulin; E87.5 Hyperkalemia; A08.4 Viral intestinal infection, unspecified; I11.0 Hypertensive heart disease with heart failure; R74.0 Nonspecific elevation of levels of transaminase and lactic acid dehydrogenase [LDH]; J98.01 Acute bronchospasm; E11.65 Type 2 diabetes mellitus with hyperglycemia; I77.9 Disorder of arteries and arterioles, unspecified; F41.1 Generalized anxiety disorder; Z68.31 Body mass index [BMI] 31.0-31.9, adult; Z71.6 Tobacco abuse counseling; Z93.3 Colostomy status; Z98.42 Cataract extraction status, left eye; F17.210 Nicotine dependence, cigarettes, uncomplicated; Z82.49 Family history of ischemic heart disease and other diseases of the circulatory system; Z83.3 Family history of diabetes mellitus; Z83.6 Family history of other diseases of the respiratory system; Z82.0 Family history of epilepsy and other diseases of the nervous system; I48.0 Paroxysmal atrial fibrillation; Z79.01 Long term (current) use of anticoagulants

== ENCOUNTER 2019-08-01 18:25 | Inpatient (IN) | payer OTHER, MEDICAID ==
[~2019-08-01] VITALS: Ht 157.5 cm; Wt 82.7 kg
[~2019-08-01 18:25] MED LIST changes: +APRESOLINE10 MG PO; +AVPAK AZITHROM250 M1 PO; +CARDIZEM CD120 M2 PO; +LOPRESSOR25 MG PO; +PERCOCET 5-3251 EACH PO; +STIOLTO RESPIMAT4 GM INH; +TRADJENTA5 M1 PO; +VENT7GM INH
[2019-08-01 18:34] VITALS: BP 180/50
[2019-08-01 19:11] LABS: BASO % 0.1 % (0.0-1.0); EOS # 0.1 10*3/uL (0.0-0.4); EOS % 0.3 % (1.0-4.0); LYMPH # 1.2 10*3/uL (1.3-4.4); LYMPH % 7.2 % (27.0-41.0); MEAN CELL VOLUME 84.3 fl (81.0-99.0); MEAN CORPUSCULAR HGB 24.1 pg (27.0-31.0); MEAN CORPUSCULAR HGB CONC 28.6 g/dl (33.0-37.0); MEAN PLATELET VOLUME 10.5 fl (9.6-12.3); MONO # 1.3 10*3/uL (0.1-1.0); MONO % 7.6 % (3.0-9.0); NEUT # 14.5 10*3/uL (2.3-7.9); NEUT % 84.3 % (47.0-73.0); NUCLEATED RED BLOOD CELL 0.1 10*3/uL (0.0-0.0); NUCLEATED RED BLOOD CELL 0.5 % (0.0-0.0); PLATELET COUNT AUTOMATED 284 10*3/uL (130-400); RED BLOOD COUNT 4.15 10*6/uL (4.10-5.10); RED CELL DISTRI WIDTH 21.6 % (0-14.5); WHITE BLOOD COUNT 17.1 10*3/uL (4.8-10.8)
[2019-08-01 19:33] LABS: ALBUMIN 3.2 gm/dl (3.1-4.5); ALKALINE PHOSPHATASE 82 U/L (45-117); BUN 30 mg/dl (7-24); CHLORIDE 109 mmol/L (98-107); CREATININE 0.92 mg/dL (0.55-1.02); LIPASE 126 U/L (73-393); SGOT/AST 17 IU/L (3-35); SGPT/ALT 83 U/L (12-78); SODIUM 141 mmol/L (136-145); TOTAL PROTEIN 6.1 gm/dL (6.4-8.2)
[2019-08-01 19:43] LABS: TROPONIN I < 0.015 ng/ml (<0.045)
[2019-08-01 21:15] VITALS: BP 178/41
--- NOTE | 2019-08-01 21:51 | NUR ---
A 69, admitted to , under the services of ERIK Valle DO with a diagnosis of CHF. Chief complaint is CHF, EDEMA. Patient arrived via stretcher from ER. Monitor applied. Initial assessment completed. Vital signs taken and recorded. ERIK VALLE DO notified of admission to the unit. Orders received. See assessment for past medical history, medications and allergies. Patient and/or family oriented to unit. [address] visitation policy reviewed. Clothing/patient valuable form completed. JUSTIN FRENCH
--- NOTE | 2019-08-01 22:10 | NUR ---
NOTIFIED DR PALMA OF COMPLETED MED REC.
--- NOTE | 2019-08-01 22:45 | NUR ---
PATIENT STATED SHE DID NOT HAVE HER NIGHTLY DOSE OF PERCOCET. PERCOCET GIVEN PER ORDER.
--- NOTE | 2019-08-01 23:21 | NUR ---
CONSULT FOR DR MAY CALLED IN TO ANSWERING SERVICE.
[2019-08-02] VITALS: BP 166/89
--- NOTE | 2019-08-02 00:14 | NUR ---
PATIENT'S HEART RATE IN THE 140'S. BP 154/62. PATIENT STATED SHE HAS NOT TAKEN ANY OF HER HOME MEDS TODAY. ORDERS RECIEVED FROM DOCTOR MINERVA TO ORDER ONE TIME DOSES OF HER CARDIZEM, METOPROLOL, AND APRESOLINE.
[2019-08-02 00:35] VITALS: BP 154/62
--- NOTE | 2019-08-02 01:39 | NUR ---
Patient resting quietly with no c/o discomfort. Respirations easy and regular. Vital signs stable. No overt distress. JUSTIN FRENCH
[2019-08-02 05:18] LABS: BASO % 0.1 % (0.0-1.0); EOS # 0.1 10*3/uL (0.0-0.4); EOS % 0.9 % (1.0-4.0); HEMOGLOBIN 8.9 g/dl (12.0-16.0); LYMPH # 1.2 10*3/uL (1.3-4.4); LYMPH % 8.6 % (27.0-41.0); MEAN CELL VOLUME 83.8 fl (81.0-99.0); MEAN CORPUSCULAR HGB 24.1 pg (27.0-31.0); MEAN CORPUSCULAR HGB CONC 28.7 g/dl (33.0-37.0); MEAN PLATELET VOLUME 9.5 fl (9.6-12.3); MONO % 7.7 % (3.0-9.0); NEUT % 82.2 % (47.0-73.0); NUCLEATED RED BLOOD CELL 0.3 % (0.0-0.0); PLATELET COUNT AUTOMATED 225 10*3/uL (130-400); RED CELL DISTRI WIDTH 21.4 % (0-14.5); WHITE BLOOD COUNT 13.4 10*3/uL (4.8-10.8)
[2019-08-02 05:35] LABS: ALBUMIN 2.5 gm/dl (3.1-4.5); ALKALINE PHOSPHATASE 75 U/L (45-117); BUN 26 mg/dl (7-24); CHLORIDE 107 mmol/L (98-107); CREATININE 0.84 mg/dL (0.55-1.02); PHOSPHOROUS 3.3 mg/dL (2.5-4.9); POTASSIUM 5.1 mmol/L (3.5-5.1); SGOT/AST 11 IU/L (3-35); SGPT/ALT 64 U/L (12-78); SODIUM 143 mmol/L (136-145)
--- NOTE | 2019-08-02 07:00 | NUR ---
ARRIVED ON SHIFT, INTRODUCED TO PATIENT, NO NEEDS VOICED AT THIS TIME, WHITE BOARD UPDATED, REPORT RECEIVED.
[2019-08-02 08:00] VITALS: BP 112/60
--- NOTE | 2019-08-02 09:00 | NUR ---
Telegraphic Typewriter Operator in to talk to patient. Patient states lives at home with alone. There are few steps in the home. Physician: nando ryder [facility]acy: [facility] Home health services: none Patient's level of ADLs: INDEPENDENT Patient has working utilities: all working DME: home oxygen, portable tanks, [place] [facility] Follow-up physician's appointment after d/c: will be made by hospitalist nurse director upon discharge Does patient want to access PORTAL?: no Discharge plan discussed with patient, she states she lives at home, is independent in adls and ambulation, she states she will be returning home when medically stable and denies any home needs. WEST SALINAS
--- NOTE | 2019-08-02 09:26 | NUR ---
Shift chart check completed.
[2019-08-02 12:00] VITALS: BP 110/56
--- NOTE | 2019-08-02 13:30 | NUR ---
Occupational Therapy evaluation completed this date with full eval to follow. Precautions include severe BLE edema,IV UE, O2 continuous use, SOB w/min exertion,low complexity level 51990. Recommend OT per POC and return home w/ home health SN, OT,PT. Thank you. Dionna Suarez OTR/l
--- NOTE | 2019-08-02 13:38 | NUR ---
PHYSICAL THERAPY Viraj completed pt moderate level of complexity 03980 full report to follow pt recently discharged to home and readmitted after one day with acute exacerbation CHF. Would benefit from rehab prior to home for strengthening/endurance training with amb however pt states she will go home and is looking at having home health aides to come in to help vs her sister. PT to work on transfers,amb with approp AD for energy conservation, strengthening, balance and safety. Farnaz Bailey PT
[2019-08-02 16:00] VITALS: BP 113/83
[2019-08-02 20:00] VITALS: BP 150/40
--- NOTE | 2019-08-02 23:20 | NUR ---
PT CO GENERALIZED BACK PAIN RATED A 5/10 AND REQUESTING PERCOCET. EXPLAINED TO PT THAT SHE HAD SCHEDULED PERCOCET BID AND HAD RECEIVED BOTH OF THOSE TODAY. OFFERED PT SOME TYLENOL AND SHE SAID THAT WOULD BE FINE. MEDICATED WITH PRN TYLENOL AT THIS TIME. WILL CHECK EFFECTIVENESS. CALL LIGHT WITHIN REACH.
[2019-08-03] VITALS: BP 135/44
[2019-08-03 00:15] VITALS: BP 124/56
--- NOTE | 2019-08-03 02:26 | NUR ---
24 HR chart check completed.
--- NOTE | 2019-08-03 05:33 | NUR ---
PT CO PAIN "ALL OVER" RATED A 10/10. REQUESTING THAT SHE GET HER PERCOCET NOW INSTEAD OF AT THE SCHEDULED 1000 TIME. PER OK TO GIVE PAIN MED NOW.
[2019-08-03 06:38] LABS: CHLORIDE 103 mmol/L (98-107); POTASSIUM 5.4 mmol/L (3.5-5.1); SODIUM 140 mmol/L (136-145)
[2019-08-03 06:39] LABS: EOS # 0.2 10*3/uL (0.0-0.4); EOS % 1.9 % (1.0-4.0); HEMATOCRIT 31.1 % (37.0-47.0); HEMOGLOBIN 9.1 g/dl (12.0-16.0); LYMPH # 0.5 10*3/uL (1.3-4.4); LYMPH % 5.5 % (27.0-41.0); MEAN CELL VOLUME 80.8 fl (81.0-99.0); MEAN CORPUSCULAR HGB 23.6 pg (27.0-31.0); MEAN CORPUSCULAR HGB CONC 29.3 g/dl (33.0-37.0); MEAN PLATELET VOLUME 10.9 fl (9.6-12.3); MONO # 0.3 10*3/uL (0.1-1.0); MONO % 3.4 % (3.0-9.0); NEUT # 8.7 10*3/uL (2.3-7.9); NEUT % 88.8 % (47.0-73.0); NUCLEATED RED BLOOD CELL 0.2 % (0.0-0.0); PLATELET COUNT AUTOMATED 237 10*3/uL (130-400); RED BLOOD COUNT 3.85 10*6/uL (4.10-5.10); RED CELL DISTRI WIDTH 22.6 % (0-14.5); WHITE BLOOD COUNT 9.8 10*3/uL (4.8-10.8)
[2019-08-03 06:43] LABS: BUN 33 mg/dl (7-24)
[2019-08-03 08:01] VITALS: BP 132/36
--- NOTE | 2019-08-03 08:35 | NUR ---
PHYSICAL THERAPY Patient seen this am 1;1 for therapy visit and was resting supine in bed upon therapist arrival. Patient identified by name / and presented with continuous O2-3L via NC. Patient resting SpO2 95%, HR 62 bpm and transfers supine to sit EOB with MIN A. Patient ambulates with use of wh walker, 40'x 2, CGA while demonstrating slow trudy, decreased stride and unsteady step sequence during 90 / 180 turns. Patient returned to EOB sit and remained with call light, tray table and telephone. SpO2 91%, HR 66 bpm following gait ex and returned to baseline within 20 seconds seated rest. Will continue per POC as tolerated, total treatment time 17 minutes. Jerod Mauro, LOG ROLLER
--- NOTE | 2019-08-03 09:00 | NUR ---
case management visits with patient, discussed with her VNA and she was receptive to this, given choice of companies she chose [facility], order send to [facility] for when patient is medically stable for discharge
--- NOTE | 2019-08-03 09:43 | NUR ---
OT NOTE Pt was seen this A.M. 1:1 for 23 minute OT session. Upon arrival pt was supine in bed. Pt identified by name and and had complaints of 7/10 BLE pain due to edema. Pt presented to therapy with continuous 2L-O2 via NC which she remained on throughout the entire session. Pt transferred supine to sit EOB with SBA and use of bed rail for UE support. While sitting EOB pt donned B socks with Vivian for assist due to quick onset of fatigue with pt reporting "both of my legs are just so heavy feeling, it wears me out to lift them." Pt was then educated on energy conservation techniques, pt presented with fair carry over. Multiple sit to stand transfers were then completed from the bed level with CGA and use of w/w for UE support. Challenged pt's static standing tolerance needed for increased I in self care tasks and functional transfers. Pt was able to tolerate aprox 3 minutes at a time before sitting due to fatigue. Functional mobility was then completed into the bathroom with CGA and use of w/w for UE support. Throughout pt presented with poor O2 line management, she was educated on safety awareness and continued to present with fair carry over. Pt transferred on/off standard commode with CGA and use of grab bar for UE support. She then stood sink side while washing her hands with CGA for safety. Pt transferred back into bed sit to supine with Vivian for assist with BLE. There she was left with call light in hand, tray table in place, and phone in reach. Continue with rec D/C plan to home with home health. ANTOINE Hercules
[2019-08-03 12:00] VITALS: BP 155/50
--- NOTE | 2019-08-03 15:25 | NUR ---
OCCUPATIONAL THERAPY CO-SIGN I approve of the Occupational Therapy notes written above. KAILEE JOHNSTON OTR/Zach
[2019-08-03 16:00] VITALS: BP 150/46
--- NOTE | 2019-08-03 18:10 | NUR ---
Scheduled Percocet given for chronic pain that patient rates 7/10. Will monitor
--- NOTE | 2019-08-03 19:00 | NUR ---
IN TO SEE PT. PT STATES SHE IS FEELING WELL TODAY. PT CO SOB AND VERY GASSY. RESPIRATIONS EASY AND REGULAR AT REST. PT CO BEING " DRY A WHISTLE" WITH THIS FLUID RESTICTION. EXPLAINED THE IMPORTANCE OF THE FLUID RESTICTION TO PT. CALL BUFFY GUEVARA.
[2019-08-03 20:00] VITALS: BP 132/40
--- NOTE | 2019-08-03 20:30 | NUR ---
NOTIFIED OF PTS BP OF 132/40. OK TO STILL GIVE BP MEDS.
--- NOTE | 2019-08-03 22:41 | NUR ---
24 HR chart check completed.
[2019-08-04] VITALS: BP 144/44
[2019-08-04 07:11] LABS: BASO % 0.1 % (0.0-1.0); EOS # 0.1 10*3/uL (0.0-0.4); EOS % 0.3 % (1.0-4.0); HEMATOCRIT 31.6 % (37.0-47.0); HEMOGLOBIN 9.3 g/dl (12.0-16.0); LYMPH # 1.9 10*3/uL (1.3-4.4); LYMPH % 10.7 % (27.0-41.0); MEAN CELL VOLUME 81.2 fl (81.0-99.0); MEAN CORPUSCULAR HGB 23.9 pg (27.0-31.0); MEAN CORPUSCULAR HGB CONC 29.4 g/dl (33.0-37.0); MEAN PLATELET VOLUME 10.4 fl (9.6-12.3); MONO # 1.2 10*3/uL (0.1-1.0); MONO % 6.7 % (3.0-9.0); NEUT # 14.4 10*3/uL (2.3-7.9); NEUT % 81.7 % (47.0-73.0); PLATELET COUNT AUTOMATED 230 10*3/uL (130-400); RED BLOOD COUNT 3.89 10*6/uL (4.10-5.10); RED CELL DISTRI WIDTH 23.4 % (0-14.5); WHITE BLOOD COUNT 17.7 10*3/uL (4.8-10.8)
[2019-08-04 07:25] LABS: BUN 34 mg/dl (7-24); CHLORIDE 98 mmol/L (98-107); CREATININE 1.03 mg/dL (0.55-1.02); POTASSIUM 4.6 mmol/L (3.5-5.1); SODIUM 140 mmol/L (136-145)
[2019-08-04 08:00] VITALS: BP 120/40
--- NOTE | 2019-08-04 08:12 | NUR ---
OT NOTE Pt was seen this A.M. 1:1 for 20 minute OT session. Upon arrival pt was supine in bed. Pt identified by name and and had complaints of 8/10 BLE pain and low back pain. Pt presented to therapy with continuous 2L-O2 via NC which she remained on throughout the entire session. Pt transferred supine to sit EOB with supervision. While sitting EOB pt donned L sock with SBA while completing with compensatory technique previously educated on and R sock with modA due to being unable to bring her leg up to the bed level. Sit to stand completed from bed level with SBA and use of w/w for UE support. Functional mobility was then completed around the room with SBA and use of w/w. Challenged pt's dynamic standing tolerance needed for increased I in self care tasks and functional transfers. Pt was able to tolerate aprox 5 minutes before sitting due to fatigue. Throughout pt's SpO2 was 94% with heart rate of 60 bpm. Pt then simulated transferring on/off standard commode with SBA and no UE support. Pt transferred back into bed sit to supine with supervision. THere she was left with call light in hand, tray table in place, and phone in reach. Continue with rec D/C plan to home with home health. MEGHAN Hercules/Zach
--- NOTE | 2019-08-04 09:00 | NUR ---
case management visits with patient, case management notified [facility] that patient is being discharged to home today, case management also contacted [facility] pharmacy to check on cost of eliquis, per pharmacist patient will have $0 copay, notified patient and hospitalist nurse director
--- NOTE | 2019-08-04 09:06 | NUR ---
PHYSICAL THERAPY Patient presented to therapy in supine with head of bed elevated and 2 liters of spO2 via nasal canula. Patient gives informed consent for treatment. Patient was identified by name and on wristband. Patient performed supine to sitting at EOB with SBA. Patient sit to stand from EOB with SBA. Patient performed ambulation with Wh Walker and Close Supervision for 160' x 1 with 2 liters of O2 and no LOB or significant SOB. Patient's 02 SATS were taken and recorded as 94% and pulse at 60 following ambulation. Patient transferred from low chair with SBA. Patient transferred back to supine in bed with SBA. Patient was left in supine in bed with head of bed elevated, call light within reach, and bed alarm activated. Patient connected to wall outlet with 2 liters of O2. Patient was 1:1 with this PROFESSIONAL TUTOR for 18 minutes total. DEVEN ANDINO PROFESSIONAL TUTOR
[2019-08-04] MEDS ORDERED: LASIX20 MG PO (10:36)
[2019-08-04] MEDS ORDERED: METOPROLOL TART50 M1 PO (10:36)
[2019-08-04] MEDS ORDERED: ELIQUIS5 M1 PO (10:37)
--- NOTE | 2019-08-04 11:42 | NUR ---
Discharge instructions reviewed with patient/family. Patient receptive and verbalizes understanding. Follow-up care arranged. Written instructions given to patient/family. Patient was wheeled from unit by staff member with all personal belongings accounted for. Patient was educated on follow up visits with pcp and . ASHISH CHÁVEZ
--- NOTE | 2019-08-05 07:54 | NUR ---
OCCUPATIONAL THERAPY CO-SIGN I approve of the Occupational Therapy notes written above. Audrey Ramos, OTR/L
--- NOTE | 2019-08-08 07:40 | NUR ---
PHYSICAL THERAPY CO-SIGN I approve of the Physical Therapy notes written above. Farnaz Bailey PT
== END 2019-08-04 11:42 | disposition home or self-care (01) | DRG 291 ==
LOC: ED 18:25 → 4E 20:29 → EDHOLD 20:29 → 4E 20:45
PROVIDERS: Emergency Medicine; Family Medicine; Internal Medicine; Student in an Organized Health Care Education/Training Program; ADMIT Internal Medicine
DX: I11.0 Hypertensive heart disease with heart failure (principal); J96.20 Acute and chronic respiratory failure, unspecified whether with hypoxia or hypercapnia; R65.10 Systemic inflammatory response syndrome (SIRS) of non-infectious origin without acute organ dysfunction; D68.59 Other primary thrombophilia; I38 Endocarditis, valve unspecified; I50.33 Acute on chronic diastolic (congestive) heart failure; D64.9 Anemia, unspecified; D72.829 Elevated white blood cell count, unspecified; E11.65 Type 2 diabetes mellitus with hyperglycemia; J43.9 Emphysema, unspecified; K57.90 Diverticulosis of intestine, part unspecified, without perforation or abscess without bleeding; E78.5 Hyperlipidemia, unspecified; F41.1 Generalized anxiety disorder; I65.29 Occlusion and stenosis of unspecified carotid artery; I48.0 Paroxysmal atrial fibrillation; F17.210 Nicotine dependence, cigarettes, uncomplicated; I27.20 Pulmonary hypertension, unspecified; E66.9 Obesity, unspecified; Z71.6 Tobacco abuse counseling; Z83.6 Family history of other diseases of the respiratory system; Z83.3 Family history of diabetes mellitus; Z82.49 Family history of ischemic heart disease and other diseases of the circulatory system; Z82.0 Family history of epilepsy and other diseases of the nervous system; Z79.899 Other long term (current) drug therapy; Z99.81 Dependence on supplemental oxygen; Z68.35 Body mass index [BMI] 35.0-35.9, adult; Z90.49 Acquired absence of other specified parts of digestive tract; Z93.3 Colostomy status

== ENCOUNTER → 2019-10-19 | Day surgery (SDC) | payer OTHER, MEDICAID ==
[~2019-10-19] VITALS: Ht 157.4 cm; Wt 73.5 kg
[~2019-10-19] MED LIST changes: +ELIQUIS5 M1 PO; +METOPROLOL TART50 M1 PO
[2019-10-19 07:35] VITALS: BP 150/50
[2019-10-19 07:51] VITALS: BP 137/38
[2019-10-19 08:06] VITALS: BP 160/56
[2019-10-19 08:21] VITALS: BP 169/56
== END | disposition home or self-care (01) ==
LOC: SDC 10-13 12:30
DX: D64.9 Anemia, unspecified (principal); D12.2 Benign neoplasm of ascending colon; E78.00 Pure hypercholesterolemia, unspecified; J44.9 Chronic obstructive pulmonary disease, unspecified; E11.9 Type 2 diabetes mellitus without complications; F41.9 Anxiety disorder, unspecified; F32.9 Major depressive disorder, single episode, unspecified; K57.30 Diverticulosis of large intestine without perforation or abscess without bleeding; I11.0 Hypertensive heart disease with heart failure; I50.9 Heart failure, unspecified; Z98.890 Other specified postprocedural states; Z79.899 Other long term (current) drug therapy; Z83.3 Family history of diabetes mellitus

== ENCOUNTER → 2020-02-09 | Outpatient (CLI) | payer OTHER, MEDICAID | END | disposition home or self-care (01) | LOC: COVID19 07:55 | DX: J44.1 Chronic obstructive pulmonary disease with (acute) exacerbation (principal); Z20.828 Contact with and (suspected) exposure to other viral communicable diseases ==

== ENCOUNTER 2020-03-19 08:44 | Inpatient (IN) | payer OTHER, MEDICAID ==
[~2020-03-19] VITALS: Ht 157.5 cm; Wt 75.4 kg
[2020-03-19] VITALS (11 sets, daily range): BP systolic 100–157; BP diastolic 25–60
--- NOTE | 2020-03-19 06:25 | NUR ---
SCHEDULED PERCOCET GIVEN AT THIS TIME PER DRS ORDERS TO MANAGE THE PAIN PATIENT HAS IN HER BACK CHRONICALLY. WILL REEVALUATE LATER FOR EFFECTIVENESS
--- NOTE | 2020-03-19 08:51 | NUR ---
PT DROPS TO 875 WITH EXERTION
[2020-03-19 09:21] LABS: MEAN CELL VOLUME 85.4 fl (81.0-99.0); MEAN CORPUSCULAR HGB 23.8 pg (27.0-31.0); MEAN CORPUSCULAR HGB CONC 27.9 g/dl (33.0-37.0); MEAN PLATELET VOLUME 10.5 fl (9.6-12.3); PLATELET COUNT AUTOMATED 316 10*3/uL (130-400); RED BLOOD COUNT 2.81 10*6/uL (4.10-5.10); RED CELL DISTRI WIDTH 15.9 % (0-14.5); WHITE BLOOD COUNT 10.5 10*3/uL (4.8-10.8)
[2020-03-19 09:28] LABS: ACT PARTIAL THROMBO TIME 23.1 SECONDS (20.0-32.1); INTERNATIONAL NORM RATIO 0.9 (2.0-3.5)
[2020-03-19 09:37] LABS: ALBUMIN 2.5 gm/dl (3.1-4.5); ALKALINE PHOSPHATASE 95 U/L (45-117); BUN 13 mg/dl (7-24); CHLORIDE 102 mmol/L (98-107); CREATININE 1.02 mg/dL (0.55-1.02); POTASSIUM 4.3 mmol/L (3.5-5.1); SGOT/AST 16 IU/L (3-35); SGPT/ALT 8 U/L (12-78); SODIUM 139 mmol/L (136-145); TOTAL PROTEIN 5.9 gm/dL (6.4-8.2)
--- NOTE | 2020-03-19 09:37 | NUR ---
NOTIFIED RN OF CRITICAL HGB 6.7 ALSO
[2020-03-19 09:39] LABS: TROPONIN I < 0.015 ng/ml (<0.045)
[2020-03-19 09:56] LABS: OVALOCYTES FEW; PLATELET SUFFICIENCY NORMAL (NORMAL); POLYCHROMASIA SLIGHT; TOTAL CELLS COUNTED 100 #CELLS
--- NOTE | 2020-03-19 10:55 | NUR ---
pt ambualted to the bathroom with no difficulties. call light in reach. 02 increased to 4L.
--- NOTE | 2020-03-19 11:00 | NUR ---
A 70, admitted to ICCU, under the services of NORBERT Roper DO with a diagnosis of GI BLEED, ANEMIA, COPD. Chief complaint is SHORTNESS OF BREATH, DARK STOOL. Patient arrived via stretcher from ER. Monitor applied. Initial assessment completed. Vital signs taken and recorded. NORBERT ROPER DO notified of admission to the unit. Orders received. See assessment for past medical history, medications and allergies. Patient and/or family oriented to unit. [facility] ICCU visitation policy reviewed. Clothing/patient valuable form completed. TRI REGALADO
[2020-03-19] MEDS ORDERED: VITAMIN D350 MC2 PO (11:30)
[2020-03-19] MEDS ORDERED: ASPIRIN ADULT L81 M1 PO (11:31)
[2020-03-19] MEDS ORDERED: STOOL SOFTENER100 M3 PO (11:31)
[2020-03-19] MEDS ORDERED: OXYGEN NAS (11:32)
--- NOTE | 2020-03-19 11:45 | NUR ---
MEDS RECONCILED WITH PRINTED LIST FROM PHARMACY
--- NOTE | 2020-03-19 11:52 | NUR ---
DR SARMIENTO NOTIFIED OF CONSULT. ORDERS RECEIVED.
--- NOTE | 2020-03-19 12:45 | NUR ---
Patient identified by arm band by myself and Maryjane Mccauley. Vital signs recorded. Blood unit number #1 verified by 2 R.N.'s. I.V. site satisfactory. Unit [id number] started at a KVO rate with Normal Saline. RICHARD MENDOZA
--- NOTE | 2020-03-19 14:48 | NUR ---
PT TAKES PERCOCET TWICE/DAY SCHEDULED. NEXT DOSE WAS SCHEDULED FOR 2200 TONIGHT, BUT PT HADN'T HAD HER MORNING DOSE. DR PORTER PHONED TO ASK IF IT WAS OKAY TO GIVE HER ONE NOW AND THEN AGAIN AT 2200 AND HE WAS AGREEABLE. MED ADMINISTERED. PT CLAIMS PAIN IN BACK/LEGS/AND "EVERYWHERE".
--- NOTE | 2020-03-19 15:37 | NUR ---
TRANSFUSION COMPLETE AND DISCONNECTED AT 1530. TOLERATED WELL.
--- NOTE | 2020-03-19 15:48 | NUR ---
PERCOCET EFFECTIVE FOR RELIEF OF BACK DISCOMFORT.
[2020-03-19 19:07] LABS: HEMATOCRIT 28.2 % (37.0-47.0); MEAN CORPUSCULAR HGB 23.3 pg (27.0-31.0); MEAN CORPUSCULAR HGB CONC 28.4 g/dl (33.0-37.0); MEAN PLATELET VOLUME 10.1 fl (9.6-12.3); PLATELET COUNT AUTOMATED 274 10*3/uL (130-400); RED BLOOD COUNT 3.43 10*6/uL (4.10-5.10); RED CELL DISTRI WIDTH 17.5 % (0-14.5); WHITE BLOOD COUNT 9.3 10*3/uL (4.8-10.8)
[2020-03-19 19:34] LABS: MEAN CELL VOLUME 82.2 fl (81.0-99.0)
[2020-03-19 19:37] LABS: MICROCYTOSIS SLIGHT; PLATELET SUFFICIENCY NORMAL (NORMAL); TOTAL CELLS COUNTED 100 #CELLS
[2020-03-19 19:38] LABS: STOMATOCYTE FEW
--- NOTE | 2020-03-19 19:50 | NUR ---
18[address] [facility] CALLED TO DR BLAKE, NO NEW ORDERS
--- NOTE | 2020-03-19 20:00 | NUR ---
RN IN TO SEE PATIENT AT THIS TIME, PATIENT IS AWAKE, WATCHING TELEVISION. APPEARS TO BE IN NO ACUTE DISTRESS. IS CURRENTLY DENYING ANY COMPLAINTS, DENIES FEELING SHORT OF BREATH AT REST BUT STATES SHE NOTICES SOME SHORTNESS OF BREATH WHILE MOVING AROUND. STATES SHE FEELS BETTER SINCE RECIEVING BLOOD EARLIER. REQUESTING TO HAVE POPSICLE AT THIS TIME. ONE WAS PROVIDED. DENIES ANY OTHER NEEDS AT THIS TIME. RN WILL CONTINUE TO MONITOR
--- NOTE | 2020-03-19 22:05 | NUR ---
PATIENT GIVEN SCHEDULED PERCOCET PER DRS ORDERS FOR HER C/O CHRONIC BACK PAIN. RN WILL MONITOR
--- NOTE | 2020-03-19 23:05 | NUR ---
PATIENT STATES PAIN MEDICATION IS HELPING
[2020-03-20] VITALS (9 sets, daily range): BP systolic 125–160; BP diastolic 22–60
--- NOTE | 2020-03-20 04:10 | NUR ---
PATIENT BATHED AWAITING PROCEDURE AT THIS TIME, PATIENT MADE AWARE OF TENATIVE TIME OF 1200 FOR EGD PROCEDURE GIVEN BY NURSING EGG GRADER VIA SURGERY SCHEDULE.
[2020-03-20 06:27] LABS: HEMATOCRIT 26.1 % (37.0-47.0); MEAN CELL VOLUME 82.1 fl (81.0-99.0); MEAN PLATELET VOLUME 10.7 fl (9.6-12.3); PLATELET COUNT AUTOMATED 300 10*3/uL (130-400); RED BLOOD COUNT 3.18 10*6/uL (4.10-5.10); RED CELL DISTRI WIDTH 17.7 % (0-14.5); WHITE BLOOD COUNT 13.4 10*3/uL (4.8-10.8)
[2020-03-20 06:38] LABS: ACT PARTIAL THROMBO TIME 23.4 SECONDS (20.0-32.1)
[2020-03-20 06:39] LABS: POTASSIUM 4.4 mmol/L (3.5-5.1)
[2020-03-20 06:47] LABS: ALBUMIN 2.5 gm/dl (3.1-4.5); CREATININE 1.34 mg/dL (0.55-1.02); FREE T4 1.09 ng/dl (0.76-1.46); THYROID STIM HORMONE (HS) 0.396 uIU/ml (0.358-4.75); TOTAL PROTEIN 5.8 gm/dL (6.4-8.2)
--- NOTE | 2020-03-20 07:12 | NUR ---
Shift chart check completed.24 HR chart check completed.
[2020-03-20 07:15] LABS: PLATELET SUFFICIENCY NORMAL (NORMAL); POLYCHROMASIA SLIGHT; TOTAL CELLS COUNTED 100 #CELLS
[2020-03-20 07:16] LABS: TARGET CELLS FEW
--- NOTE | 2020-03-20 07:57 | NUR ---
ON ASSESSMENT PATIENT IS ALERT AND ORIENTED, NPO FOR EGD TODAY. SHE IS STILL WHEEZING AND RHONCHI. MONITOR APPEARS TO BE NSR AT THIS TIME. HER MANUAL BP IS 160/60. I PHONED ANESTHESIA AND PT HAS HAD HER BETA LESLI, LOPRESSOR, AND HER CALCIUM CHANNEL LESLI, CARDIZEM CD AND HER AM DOSE OF PERCOCET WITH ENOUGH WATER TO SWALLOW THEM. SHE HAS HER SCD'S ON. SEE ALL APPROPRIATE INTERVENTIONS.
[2020-03-20 08:50] LABS: VITAMIN D, 25-HYDROXY 40.5 ng/mL (30-100)
--- NOTE | 2020-03-20 08:57 | NUR ---
PERCOCET EFFECTIVE FOR COMFORT.
--- NOTE | 2020-03-20 09:00 | NUR ---
Personnel Worker in to talk to patient. Patient states lives at home alone with her family checking in on her. There are 0 steps in the home. There is an elevator. Physician: Tyrone Levi Pharmacy: [facility] health services: has had [facility] in the past but not currently, [facility] Patient's level of ADLs: INDEPENDENT Patient has working utilities: yes DME: O2 @ 2L nc prn, portable O2 tanks, nebulizer, O2 supplier [facility] Follow-up physician's appointment after d/c: will be made by the hospitalist nurse director upon discharge Does patient want to access PORTAL?: no Discharge plan discussed with patient. She lives at home with her family checking in on her. She needs minimal assistance in bathing at times which her friend and sister help her with. She states she ambulates without difficulty. Discussed short term rehab and she declines. Discussed home health care services and she states she has [facility] through her insurance. She started to talk about hospice as they have reached out to her and she qualifies but is not ready for hospice. CM will continue to follow for any discharge planning needs. When medically stable she will be discharged to home. She states family will provide transportation on discharge. BRUNO AGUILA
--- NOTE | 2020-03-20 11:00 | NUR ---
PT TO OR VIA BED.
--- NOTE | 2020-03-20 12:50 | NUR ---
PT HAS RETURNED FROM EGD. ORDERS REVIEWED AND CLARIFIED WITH DR SARMIENTO.
--- NOTE | 2020-03-20 13:01 | NUR ---
RECEIVED CALL FROM PT'S [facility] NURSE PRACTITIONER. SHE REQUESTS THAT WE CALL [phone] WHEN PATIENT DISCHARGED.
--- NOTE | 2020-03-20 13:17 | NUR ---
Received message from nurse regarding reaching out to [facility] when patient is discharged. Reached out to [facility] to see what services are provided to the patient. Spoke to Rush at [facility] they are a home based palliative care and the nurse practitioner does goes out to see the patient. Explained CM will reach out to [facility] when patient is being discharged.
--- NOTE | 2020-03-20 15:44 | NUR ---
PT TRANSPORTED VIA BED, WITH ALL OF HER BELONGINGS. PHONE REPORT TO VAMSI ON 53.
--- NOTE | 2020-03-20 15:44 | NUR ---
RECEIVED REPORT FROM [facility] ICU NURSE ON PATIENT
--- NOTE | 2020-03-20 17:52 | NUR ---
CALLED DR WEATHERS PER PT REQUEST OF WANTING POWDER FOR GROIN AREA, PUT ORDER IN DESIRED
--- NOTE | 2020-03-20 20:30 | NUR ---
PT SITTING UP IN BED. NO SOB NOTED. OXYGEN IN USE. RESP-EASY AND REGULAR. BSG-312, SEE EMAR. C/O ABDOMINAL PAIN RATES PAIN 7 ON PAIN SCALE 0-10. MEDICATED WITH ROUTINE PERCOCET. ALSO REQUESTING STOOL SOFTENER, MEDICATED WITH DUCOLAX PO SEE MEAR. CALL LIGHT IN REACH. SEE SHIFT ASSSESSMENT.
--- NOTE | 2020-03-20 21:20 | NUR ---
PT RESTING IN BED WITH EYES CLOSED. RESP-EASY AND REGULAR. MEDICATIONS SEEMS TO BE EFFECTIVE. CALL LIGHT IN REACH. OXYGEN IN USE.
[2020-03-21] VITALS: BP 148/47
--- NOTE | 2020-03-21 00:20 | NUR ---
PT RESTING IN BED WATCHING TV. NO C/O AT THIS TIME. RESP-EASY AND REGULAR. CALL LIGHT IN REACH. SEE SHIFT ASSESSMENT.
--- NOTE | 2020-03-21 03:55 | NUR ---
24 HR chart check completed.
--- NOTE | 2020-03-21 05:19 | NUR ---
PT TOLERATED ROUTINE MED WITH NO PROBLEM. BSG-355, SEE EMAR. CALL LIGHT IN REACH.
[2020-03-21 06:48] LABS: HEMATOCRIT 24.9 % (37.0-47.0); MEAN CELL VOLUME 81.6 fl (81.0-99.0); MEAN CORPUSCULAR HGB 23.3 pg (27.0-31.0); MEAN CORPUSCULAR HGB CONC 28.5 g/dl (33.0-37.0); MEAN PLATELET VOLUME 10.7 fl (9.6-12.3); NUCLEATED RED BLOOD CELL 0.1 % (0.0-0.0); PLATELET COUNT AUTOMATED 297 10*3/uL (130-400); RED BLOOD COUNT 3.05 10*6/uL (4.10-5.10); RED CELL DISTRI WIDTH 17.3 % (0-14.5); WHITE BLOOD COUNT 24.4 10*3/uL (4.8-10.8)
[2020-03-21 07:24] LABS: ALBUMIN 2.5 gm/dl (3.1-4.5); POTASSIUM 4.6 mmol/L (3.5-5.1); TOTAL PROTEIN 5.6 gm/dL (6.4-8.2)
[2020-03-21 07:25] LABS: CREATININE 1.24 mg/dL (0.55-1.02)
[2020-03-21 08:00] VITALS: BP 132/54
--- NOTE | 2020-03-21 08:00 | NUR ---
Patient resting quietly. Respirations easy and regular. Vital signs stable. No overt distress. AVI ARAYA R
[2020-03-21 08:38] LABS: POLYCHROMASIA SLIGHT; TARGET CELLS FEW; TOTAL CELLS COUNTED 100 #CELLS
[2020-03-21 08:40] LABS: PLATELET SUFFICIENCY NORMAL (NORMAL)
--- NOTE | 2020-03-21 10:00 | NUR ---
SCHEDULED PERCOCET EFFECTIVE PER PT. CALL LIGHT IN REACH. WILL MONITOR
--- NOTE | 2020-03-21 11:30 | NUR ---
CM in to see patient. No new needs or request at this time. Discussed home health care services and she is agreeable. She states her friend had [facility]. Discussed that would be private pay and she is not agreeable as she can not afford it. She also brought up [facility] which would be private pay. When provided with a list of agencies she chose [facility]. Hospitalist nurse director notified. When medically stable she will be discharged to home with OV services and the resumption of her [facility].
[2020-03-21 12:00] VITALS: BP 138/46
--- NOTE | 2020-03-21 15:30 | NUR ---
Patient resting quietly with no c/o discomfort. Respirations easy and regular. Vital signs stable. No overt distress. AVI ARAYA R
[2020-03-21 16:00] VITALS: BP 133/37
[2020-03-21 20:00] VITALS: BP 148/46
--- NOTE | 2020-03-21 20:40 | NUR ---
PT SITTING UP AT SIDE OF BED. RESP-EASY AND REGULAR. OXYGEN IN USE. BSG-327, SEE EMAR. C/O CONSTIPATION REQUESTING STOOL SOFTENER. MEDICATED WITH DUCOLAX PO. CALL LIGHT IN REACH.
[2020-03-22] VITALS: BP 142/39
--- NOTE | 2020-03-22 00:10 | NUR ---
PT RESTING IN BED. SCD'S PLACED ON PT. NO C/O AT THIS TIME. CALL LIGHT IN REACH. SEE SHIFT ASSESSMENT.
--- NOTE | 2020-03-22 05:35 | NUR ---
TOLERATED ROUTINE MED WITH NO PROBLEM. BSG-383, SEE EMAR. CALL LIGHT IN REACH.
[2020-03-22 06:52] LABS: HEMATOCRIT 24.8 % (37.0-47.0); MEAN CELL VOLUME 81.3 fl (81.0-99.0); MEAN CORPUSCULAR HGB 23.9 pg (27.0-31.0); MEAN CORPUSCULAR HGB CONC 29.4 g/dl (33.0-37.0); MEAN PLATELET VOLUME 10.7 fl (9.6-12.3); NUCLEATED RED BLOOD CELL 0.1 % (0.0-0.0); PLATELET COUNT AUTOMATED 286 10*3/uL (130-400); RED BLOOD COUNT 3.05 10*6/uL (4.10-5.10); RED CELL DISTRI WIDTH 17.2 % (0-14.5); WHITE BLOOD COUNT 21.6 10*3/uL (4.8-10.8)
[2020-03-22 07:26] LABS: POTASSIUM 4.5 mmol/L (3.5-5.1)
[2020-03-22 07:32] LABS: CREATININE 1.32 mg/dL (0.55-1.02)
[2020-03-22 08:00] VITALS: BP 95/56
[2020-03-22 08:00] LABS: PLATELET SUFFICIENCY NORMAL (NORMAL); POLYCHROMASIA SLIGHT; TOTAL CELLS COUNTED 100 #CELLS
--- NOTE | 2020-03-22 08:30 | NUR ---
Patient resting quietly with no c/o discomfort. Respirations easy and regular. Vital signs stable. No overt distress. AVI ARAYA R
[2020-03-22] MEDS ORDERED: LEVAQUIN500 M2 PO (09:36)
[2020-03-22] MEDS ORDERED: PROTONIX40 MG PO (09:36)
[2020-03-22] MEDS ORDERED: Carafate1 GM/10 ML PO (09:36)
[2020-03-22] MEDS ORDERED: PREDNISONE10 MG PO (09:36)
--- NOTE | 2020-03-22 10:41 | NUR ---
Discharge instructions reviewed with patient/family. Patient receptive and verbalizes understanding. Follow-up care arranged. Written instructions given to patient/family. AVI ARAYA
--- NOTE | 2020-03-22 11:18 | NUR ---
COMMERCIAL CENTER MANAGER FAXED REFERRAL TO [facility]. WILL NEED HH ORDER AND FACE TO FACE. RN HOSPITALIST COORDINATOR IS AWARE. DIRECTOR STRATEGIC ACCOUNT MANAGEMENT BRUNO IS AWARE.
--- NOTE | 2020-03-22 12:14 | NUR ---
Faxed face to face to [facility]. Notified [facility] of patient discharging today. Patient has an appt with Floe on 03/27.
== END 2020-03-22 10:41 | disposition home health service (06) | DRG 377 ==
LOC: ED 08:44 → EDHOLD 10:27 → ICCU 10:27 → 5E 10:27 → ICCU 10:45 → 5E 03-20 15:52
PROVIDERS: Emergency Medicine; Family Medicine; Hospitalist; Surgery; ADMIT Student in an Organized Health Care Education/Training Program
PROC: 30233N1 Transfusion of Nonautologous Red Blood Cells into Peripheral Vein, Percutaneous Approach (ICD-10-PCS; principal; 2020-03-19)
PROC: 0DB68ZX Excision of Stomach, Via Natural or Artificial Opening Endoscopic, Diagnostic (ICD-10-PCS; 2020-03-20)
DX: K29.91 Gastroduodenitis, unspecified, with bleeding (principal); E43 Unspecified severe protein-calorie malnutrition; D62 Acute posthemorrhagic anemia; J44.1 Chronic obstructive pulmonary disease with (acute) exacerbation; D68.59 Other primary thrombophilia; I50.32 Chronic diastolic (congestive) heart failure; E83.41 Hypermagnesemia; K57.90 Diverticulosis of intestine, part unspecified, without perforation or abscess without bleeding; E78.5 Hyperlipidemia, unspecified; F41.1 Generalized anxiety disorder; I11.0 Hypertensive heart disease with heart failure; I48.91 Unspecified atrial fibrillation; E11.65 Type 2 diabetes mellitus with hyperglycemia; I65.29 Occlusion and stenosis of unspecified carotid artery; Z88.8 Allergy status to other drugs, medicaments and biological substances; Z79.01 Long term (current) use of anticoagulants; Z79.82 Long term (current) use of aspirin; Z79.899 Other long term (current) drug therapy; Z68.30 Body mass index [BMI] 30.0-30.9, adult

== ENCOUNTER 2020-04-18 17:42 | Emergency (ER) | payer OTHER, MEDICAID ==
[~2020-04-18] VITALS: Wt 75.7 kg
[2020-04-18] VITALS (7 sets, daily range): BP systolic 108–149; BP diastolic 39–49
[~2020-04-18 17:42] MED LIST changes: +ASPIRIN ADULT L81 M1 PO; +Carafate1 GM/10 ML PO; +LEVAQUIN500 M2 PO; +OXYGEN NAS; +PROTONIX40 MG PO; +STOOL SOFTENER100 M3 PO; +VITAMIN D350 MC2 PO
[2020-04-18 18:38] LABS: BASO # 0.1 10*3/uL (0.0-0.1); BASO % 0.4 % (0.0-1.0); EOS # 0.1 10*3/uL (0.0-0.4); EOS % 0.7 % (1.0-4.0); HEMATOCRIT 26.4 % (37.0-47.0); LYMPH # 1.2 10*3/uL (1.3-4.4); LYMPH % 10.5 % (27.0-41.0); MEAN CELL VOLUME 76.1 fl (81.0-99.0); MEAN CORPUSCULAR HGB 20.7 pg (27.0-31.0); MEAN CORPUSCULAR HGB CONC 27.3 g/dl (33.0-37.0); MEAN PLATELET VOLUME 9.7 fl (9.6-12.3); MONO # 0.9 10*3/uL (0.1-1.0); MONO % 7.5 % (3.0-9.0); NEUT # 9.4 10*3/uL (2.3-7.9); NEUT % 80.5 % (47.0-73.0); NUCLEATED RED BLOOD CELL 0.2 % (0.0-0.0); PLATELET COUNT AUTOMATED 381 10*3/uL (130-400); RED BLOOD COUNT 3.47 10*6/uL (4.10-5.10); RED CELL DISTRI WIDTH 17.5 % (0-14.5); WHITE BLOOD COUNT 11.7 10*3/uL (4.8-10.8)
[2020-04-18 18:54] LABS: CREATININE 1.13 mg/dL (0.55-1.02); POTASSIUM 4.3 mmol/L (3.5-5.1); TOTAL PROTEIN 6.6 gm/dL (6.4-8.2)
== END 2020-04-18 22:46 | disposition home or self-care (01) ==
LOC: ED 17:42
PROVIDERS: Physician Assistant
DX: D64.9 Anemia, unspecified (principal); F17.200 Nicotine dependence, unspecified, uncomplicated; Z88.8 Allergy status to other drugs, medicaments and biological substances; Z79.899 Other long term (current) drug therapy; Z79.82 Long term (current) use of aspirin

== ENCOUNTER 2020-05-15 16:05 | Observation (INO) | payer OTHER, MEDICAID ==
[~2020-05-15] VITALS: Ht 157.4 cm; Wt 73.2 kg
[2020-05-15] VITALS (9 sets, daily range): BP systolic 120–156; BP diastolic 37–55
[2020-05-15 17:01] LABS: MEAN CELL VOLUME 75.8 fl (81.0-99.0); MEAN CORPUSCULAR HGB 20.6 pg (27.0-31.0); MEAN CORPUSCULAR HGB CONC 27.2 g/dl (33.0-37.0); MEAN PLATELET VOLUME 10.7 fl (9.6-12.3); PLATELET COUNT AUTOMATED 294 10*3/uL (130-400); RED CELL DISTRI WIDTH 18.6 % (0-14.5); WHITE BLOOD COUNT 9.4 10*3/uL (4.8-10.8)
[2020-05-15 17:23] LABS: TOTAL CELLS COUNTED 100 #CELLS
[2020-05-15 17:24] LABS: ALBUMIN 2.9 gm/dl (3.1-4.5); ALKALINE PHOSPHATASE 87 U/L (45-117); BUN 20 mg/dl (7-24); CHLORIDE 97 mmol/L (98-107); CREATININE 1.16 mg/dL (0.55-1.02); LIPASE 74 U/L (73-393); POTASSIUM 3.2 mmol/L (3.5-5.1); SGOT/AST 4 IU/L (3-35); SGPT/ALT 11 U/L (12-78); SODIUM 136 mmol/L (136-145); TOTAL PROTEIN 6.3 gm/dL (6.4-8.2)
[2020-05-15 17:25] LABS: OVALOCYTES FEW
[2020-05-15 17:26] LABS: PLATELET SUFFICIENCY NORMAL (NORMAL); STOMATOCYTE FEW; TARGET CELLS FEW
[2020-05-15 17:32] LABS: TROPONIN I < 0.015 ng/ml (<0.045)
[2020-05-15] MEDS ORDERED: TRAD5TAB1 PO (18:35)
--- NOTE | 2020-05-15 18:38 | NUR ---
MEDICATIONS VERIFIED W MEDICATION CLAIM HISTORY
--- NOTE | 2020-05-15 18:42 | NUR ---
The assessment has been completed. MIRTA ODONNELL Time: 1640 A 70 year old FEMALE admitted to [facility] under services of ERIK VALLE DO Pt. arrived via ambulatory from ER. Chief complaint: REPORTS TO ER W STATING HER BLOOD IS LOW.PT WAS SENT TO THE ER BY PCP.. MIRTA ODONNELL
--- NOTE | 2020-05-15 19:22 | NUR ---
CALLED DR SARMIENTO FOR NEW CONSULT. HE STATES MAKE PT NPO AFTER MIDNIGHT AND HE WILL SCOPE HER TOMORROW
[2020-05-15 21:46] LABS: BASO % 0.3 % (0.0-1.0); EOS # 0.1 10*3/uL (0.0-0.4); EOS % 1.1 % (1.0-4.0); HEMATOCRIT 26.5 % (37.0-47.0); LYMPH # 2.1 10*3/uL (1.3-4.4); LYMPH % 20.8 % (27.0-41.0); MEAN CELL VOLUME 76.1 fl (81.0-99.0); MEAN CORPUSCULAR HGB 21.6 pg (27.0-31.0); MEAN CORPUSCULAR HGB CONC 28.3 g/dl (33.0-37.0); MEAN PLATELET VOLUME 9.4 fl (9.6-12.3); MONO % 9.6 % (3.0-9.0); NEUT % 67.7 % (47.0-73.0); PLATELET COUNT AUTOMATED 261 10*3/uL (130-400); RED BLOOD COUNT 3.48 10*6/uL (4.10-5.10); RED CELL DISTRI WIDTH 17.5 % (0-14.5); WHITE BLOOD COUNT 10.3 10*3/uL (4.8-10.8)
--- NOTE | 2020-05-15 21:51 | NUR ---
NOTIFIED DR COPELAND OF HGB OF 7.5 FROM 6.8
--- NOTE | 2020-05-15 23:47 | NUR ---
DR COPELAND NOTIFIED OF UPDATED MED LIST
[2020-05-16] VITALS: BP 148/41
--- NOTE | 2020-05-16 00:52 | NUR ---
PRN NORCO PO GIVEN FOR COMPLAINTS OF "PAIN ALL OVER", WILL MONITOR FOR EFFECTIVENESS
--- NOTE | 2020-05-16 01:50 | NUR ---
WHEN RE-ASSESSING AFTER NORCO PT IS SLEEPING. WILL CONTINUE TO MONITOR
--- NOTE | 2020-05-16 02:22 | NUR ---
24 HR chart check completed.
--- NOTE | 2020-05-16 04:19 | NUR ---
Patient sleeping. Respirations relaxed and easy. CALL LIGHT WITHIN REACH VAMSI SILVA
[2020-05-16 06:06] LABS: ALBUMIN 2.6 gm/dl (3.1-4.5); ALKALINE PHOSPHATASE 80 U/L (45-117); BUN 18 mg/dl (7-24); CHLORIDE 99 mmol/L (98-107); CREATININE 0.93 mg/dL (0.55-1.02); POTASSIUM 3.4 mmol/L (3.5-5.1); SGOT/AST 7 IU/L (3-35); SGPT/ALT 9 U/L (12-78); SODIUM 139 mmol/L (136-145); TOTAL PROTEIN 5.5 gm/dL (6.4-8.2)
--- NOTE | 2020-05-16 06:12 | NUR ---
PRN NORCO PO GIVEN FOR COMPLAINTS OF PAIN ALL OVER. MEDICATION GIVEN WITH A SIP OF WATER DUE TO PT BEING NPO. WILL MONITOR FOR EFFECTIVENESS
--- NOTE | 2020-05-16 06:29 | NUR ---
NOTIFIED DR COPELAND OF CO2 43
[2020-05-16 06:31] LABS: BASO % 0.4 % (0.0-1.0); EOS # 0.2 10*3/uL (0.0-0.4); EOS % 1.9 % (1.0-4.0); HEMATOCRIT 26.3 % (37.0-47.0); LYMPH # 1.9 10*3/uL (1.3-4.4); LYMPH % 20.1 % (27.0-41.0); MEAN CELL VOLUME 76.5 fl (81.0-99.0); MEAN CORPUSCULAR HGB 21.2 pg (27.0-31.0); MEAN CORPUSCULAR HGB CONC 27.8 g/dl (33.0-37.0); MEAN PLATELET VOLUME 10.1 fl (9.6-12.3); MONO % 10.3 % (3.0-9.0); NEUT # 6.5 10*3/uL (2.3-7.9); NEUT % 66.9 % (47.0-73.0); PLATELET COUNT AUTOMATED 274 10*3/uL (130-400); RED BLOOD COUNT 3.44 10*6/uL (4.10-5.10); RED CELL DISTRI WIDTH 17.6 % (0-14.5); WHITE BLOOD COUNT 9.6 10*3/uL (4.8-10.8)
--- NOTE | 2020-05-16 07:00 | NUR ---
PT REFUSED ABG. EXPLAINED RATIONALE FOR THE TEST BUT PT. CONTINUED TO REFUSE. RN NOTIFIED.
[2020-05-16 08:00] VITALS: BP 142/62; BP 150/42
--- NOTE | 2020-05-16 11:26 | NUR ---
Title Insurance Sales Representative in to talk to patient. Patient states lives at HOME with ALONE. There are NO steps in the home. Physician: JESSIE REEVES Pharmacy: [facility] [place] health services: NONE Patient's level of ADLs: INDEPENDENT Patient has working utilities: YES DME: OXYGEN WITH [facility] Follow-up physician's appointment after d/c: WILL BE MADE BY HOSPITALIST NURSE DIRECTOR ON DISCHARGE Does patient want to access PORTAL?: NO Discharge plan PT LIVES AT HOME ALONE AND IS INDEPEDENT IN HER CARE. STATES SHE HAS HAD [facility] PREVIOUSLY BUT DOES NOT HAVE SERVICES RIGHT NOW. STATES SHE IS DOING WELL AND DOES NOT NEED HH AT THIS TIME. PT ALSO STATES SHE HAS [facility] FOR PALL[facility] CARE AND THEY HELP HER IF NEEDED ALL SHE HAS TO DO IS CALL THEM. PT HAS HOME OXYGEN. DENIES SHE WILL HAVE ANY OTHER NEEDS AT THIS TIME. PLAN IS RETURN HOME WHEN MEDICALLY STABLE. WILL CONTINUE TO FOLLOW. WILL HAVE A RIDE HOME ON DISCHARGE.. NISHA NIX
--- NOTE | 2020-05-16 13:37 | NUR ---
Discharge instructions reviewed with patient/family. Patient receptive and verbalizes understanding. Follow-up care arranged. Written instructions given to patient/family. CLAUDINE GONZALEZ
== END 2020-05-16 13:37 | disposition home or self-care (01) ==
LOC: ED 16:05 → 5E 17:54 → EDHOLD 17:54 → 4E 18:53 → 5E 19:04
PROVIDERS: Nurse Practitioner Family; Student in an Organized Health Care Education/Training Program; ADMIT Internal Medicine; ATTEND Internal Medicine
DX: K92.2 Gastrointestinal hemorrhage, unspecified (principal); D62 Acute posthemorrhagic anemia; R73.9 Hyperglycemia, unspecified; E87.6 Hypokalemia; E87.8 Other disorders of electrolyte and fluid balance, not elsewhere classified; J44.9 Chronic obstructive pulmonary disease, unspecified; K57.90 Diverticulosis of intestine, part unspecified, without perforation or abscess without bleeding; I10 Essential (primary) hypertension; E78.5 Hyperlipidemia, unspecified

== ENCOUNTER 2020-06-17 01:21 | Inpatient (IN) | payer OTHER, MEDICAID ==
[2020-06-17] VITALS (20 sets, daily range): BP systolic 65–145; BP diastolic 23–90
[~2020-06-17] VITALS: Ht 157.4 cm; Wt 73.9 kg
[2020-06-17 01:01] LABS: ALBUMIN 2.8 gm/dl (3.1-4.5); ALKALINE PHOSPHATASE 82 U/L (45-117); BUN 31 mg/dl (7-24); CHLORIDE 101 mmol/L (98-107); CREATININE 1.19 mg/dL (0.55-1.02); POTASSIUM 4.3 mmol/L (3.5-5.1); SGOT/AST 7 IU/L (3-35); SGPT/ALT 11 U/L (12-78); SODIUM 140 mmol/L (136-145); TOTAL PROTEIN 5.9 gm/dL (6.4-8.2)
--- NOTE | 2020-06-17 01:03 | NUR ---
PT. RESTING IN BED. RR EASY AND NON-LABORED. NO DISTRESS NOTED. CALL LIGHT WITHIN REACH. WILL CONTINUE TO MONITOR. GAVE PT. WARM BLANKET.
[2020-06-17 01:13] LABS: MICROCYTOSIS MODERATE; PLATELET SUFFICIENCY NORMAL (NORMAL); TOTAL CELLS COUNTED 100 #CELLS
[~2020-06-17 01:21] MED LIST changes: +TRAD5TAB1 PO
[2020-06-17 01:44] LABS: MEAN CELL VOLUME 77.4 fl (81.0-99.0); MEAN CORPUSCULAR HGB 19.9 pg (27.0-31.0); MEAN CORPUSCULAR HGB CONC 25.7 g/dl (33.0-37.0); MEAN PLATELET VOLUME 9.9 fl (9.6-12.3); PLATELET COUNT AUTOMATED 336 10*3/uL (130-400); RED BLOOD COUNT 2.61 10*6/uL (4.10-5.10); RED CELL DISTRI WIDTH 18.6 % (0-14.5); WHITE BLOOD COUNT 10.4 10*3/uL (4.8-10.8)
--- NOTE | 2020-06-17 01:45 | NUR ---
A 70 YEAR OLD FEMALE admitted to ICCU, under the services of GINI Lucero DO with a diagnosis of GI BLEED, . Chief complaint is VAGINAL AND RECTAL BLEEDING TODAY. Patient arrived via stretcher from ER. Monitor applied. Initial assessment completed. Vital signs taken and recorded. GINI LUCERO DO notified of admission to the unit. Orders received. See assessment for past medical history, medications and allergies. Patient and/or family oriented to unit. [facility] ICCU visitation policy reviewed. Clothing/patient valuable form completed. ARIEL MONTENEGRO
[2020-06-17 01:48] LABS: HEMATOCRIT 20.2 % (37.0-47.0)
--- NOTE | 2020-06-17 03:30 | NUR ---
JUDI DIA AND SCD'S PUT ON PATIENT, INSTRUCTED TO CALL FOR ASSISTANCE WHEN BSC IS NEEDED. CHIQUITA MEHTA RN
--- NOTE | 2020-06-17 05:50 | NUR ---
PT. STATED SHE WANTED JUDI HOSE REMOVED THEY WERE MAKING HER FEET NUMB. JUDI HOSE REMOVED AND TUBI COMPUTER APPLICATIONS INSTRUCTOR PLACED ON PT PRIOR TO SCD'S. PT. TOLERATING AT PRESENT. CHIQUITA MEHTA RN
--- NOTE | 2020-06-17 06:30 | NUR ---
DR. DUNNE NOTIFIED OF CONSULT. CONFIRMED DR. DUNNE CONSULT WITH PRIMARY DR. PORTER PT. WAS DUE TO HAVE EGD/COLO Jun WITH DR. SARMIENTO. DR. SARMIENTO CURRENTLY UNAVAILABLE PER DR. PORTER. CHIQUITA MEHTA RN
--- NOTE | 2020-06-17 06:47 | NUR ---
BRADLEY HELD PER DR. DUNNE.
[2020-06-17 07:10] LABS: HEMATOCRIT 22.3 % (37.0-47.0); MEAN CELL VOLUME 78.2 fl (81.0-99.0); MEAN CORPUSCULAR HGB 21.8 pg (27.0-31.0); MEAN CORPUSCULAR HGB CONC 27.8 g/dl (33.0-37.0); MEAN PLATELET VOLUME 10.4 fl (9.6-12.3); NUCLEATED RED BLOOD CELL 0.4 % (0.0-0.0); PLATELET COUNT AUTOMATED 292 10*3/uL (130-400); RED BLOOD COUNT 2.85 10*6/uL (4.10-5.10); RED CELL DISTRI WIDTH 17.7 % (0-14.5); WHITE BLOOD COUNT 10.4 10*3/uL (4.8-10.8)
[2020-06-17 07:17] LABS: BUN 29 mg/dl (7-24); CHLORIDE 103 mmol/L (98-107); CREATININE 0.99 mg/dL (0.55-1.02); POTASSIUM 3.7 mmol/L (3.5-5.1); SODIUM 143 mmol/L (136-145)
[2020-06-17 08:25] LABS: BASOPHILS 1 % (0-1); TOTAL CELLS COUNTED 100 #CELLS
[2020-06-17 08:26] LABS: BURR CELLS FEW; MICROCYTOSIS SLIGHT; OVALOCYTES FEW; PLATELET SUFFICIENCY NORMAL (NORMAL); POLYCHROMASIA SLIGHT; SCHISTOCYTES FEW; STOMATOCYTE FEW; TARGET CELLS FEW
[2020-06-17 08:31] LABS: BILIRUBIN Negative (Negative); BLOOD Negative (Negative); CLARITY Clear (Clear); COLOR Yellow (Yellow); GLUCOSE Negative (Negative); KETONE Negative (Negative); LEUKO ESTERASE 1+ (Negative); NITRITE Negative (Negative); PH 5.5 (4.5-8.0); UROBILINOGEN 0.2 E.U./dl (0.0-1.0)
--- NOTE | 2020-06-17 08:53 | NUR ---
Awake and alert this AM. HGB <7. #2 RBC's up to infuse. Full assessment complete.
[2020-06-17 08:59] LABS: BACTERIA TRACE; MUCOUS 1+
--- NOTE | 2020-06-17 10:36 | NUR ---
Dr. watson in to [facility].
[2020-06-17 11:58] LABS: HEMATOCRIT 26.9 % (37.0-47.0)
--- NOTE | 2020-06-17 20:05 | NUR ---
PT. RESTING IN BED. HEP LOCK IN REINA ASYMPT. LUNGS DIMINISHED WITH I&E WHEEZES BILAT, PULSE OX 96% ON 2L NC. ABDOMEN SOFTLY DISTENDED, NORMO, OBESE. TRACE BLE EDEMA NOTED. PT. UP TO BSC AD SUSAN. TUBI MACHINE SHORTHAND REPORTER AND SCD'S BILAT, PT. REFUSING JUDI HOSE. PT. REMINDED OF NPO STATUS AFTER MIDNIGHT FOR EGD IN AM.
[2020-06-18] VITALS (10 sets, daily range): BP systolic 105–177; BP diastolic 30–58
--- NOTE | 2020-06-18 06:02 | NUR ---
PT'S GLUC 88, PT. WARM AND DRY ,ALERT AND ORIENTED, CURRENTLY UP AT BEDSIDE WASHING UP SELF FOR AM EGD. WILL CONTINUE TO MONITOR. CHIQUITA MEHTA RN
[2020-06-18 06:08] LABS: BASO % 0.4 % (0.0-1.0); EOS # 0.2 10*3/uL (0.0-0.4); EOS % 2.5 % (1.0-4.0); HEMATOCRIT 25.2 % (37.0-47.0); LYMPH % 21.1 % (27.0-41.0); MEAN CELL VOLUME 78.5 fl (81.0-99.0); MEAN CORPUSCULAR HGB 22.1 pg (27.0-31.0); MEAN CORPUSCULAR HGB CONC 28.2 g/dl (33.0-37.0); MEAN PLATELET VOLUME 10.4 fl (9.6-12.3); MONO % 10.6 % (3.0-9.0); NEUT # 6.2 10*3/uL (2.3-7.9); NEUT % 65.1 % (47.0-73.0); NUCLEATED RED BLOOD CELL 0.3 % (0.0-0.0); PLATELET COUNT AUTOMATED 296 10*3/uL (130-400); RED BLOOD COUNT 3.21 10*6/uL (4.10-5.10); RED CELL DISTRI WIDTH 18.4 % (0-14.5); WHITE BLOOD COUNT 9.6 10*3/uL (4.8-10.8)
[2020-06-18 06:23] LABS: BUN 23 mg/dl (7-24); CHLORIDE 102 mmol/L (98-107); POTASSIUM 3.7 mmol/L (3.5-5.1); SODIUM 143 mmol/L (136-145)
--- NOTE | 2020-06-18 08:15 | NUR ---
RESTING IN BED. DENIES ANY COMPLAINTS. REMAINS NPO FOR EGD. VITALS STABLE. I/E WHEEZE HEARD IN ALL LUNG BOYER. HEP LOCK INTACT TO LEFT ARM.
--- NOTE | 2020-06-18 09:00 | NUR ---
Turntable Operator in to talk to patient. Patient states lives at home alone with her family checking in on her. There are 0 steps in the home. There is an elevator. Physician: Tyrone Levi Pharmacy: [facility] Home health services: has had OV in the past but not currently, [facility] Patient's level of ADLs: minimal assistance Patient has working utilities: yes DME: O2 @ 2L nc, portable O2 tanks, nebulizer, O2 supplier [facility] Follow-up physician's appointment after d/c: will be made by the hospitalist nurse director upon discharge Does patient want to access PORTAL?: no Discharge plan discussed with patient. She lives at home with her family checking in on her. She needs minimal assistance in bathing at times which her friend and sister help her with. She states she ambulates with either a cane or a walker when needed. Discussed short term rehab and she declines. Discussed home health care services and she states she has [facility] through her insurance. CM will continue to follow for any discharge planning needs. When medically stable she will be discharged to home. She states either her sister or her [id number] will provide transportation on discharge. BRUNO AGUILA
--- NOTE | 2020-06-18 12:40 | NUR ---
TAKEN DOWN TO SURGERY FOR EGD
--- NOTE | 2020-06-18 20:04 | NUR ---
PT. RESTING IN BED. HEP LOCK IN REINA ASYMPT. LUNGS HAVE I&E WHEEZES BILAT, PULSE OX 100% ON 2L, POST BREATHING TREATMENT. ABDOMEN SOFT NONDISTENDED AND NORMO. TRACE BLE EDEMA NOTED. RESP. EASY AND REG ,NO DISTRESS. PT. REMINDED OF NPO STATUS AFTER MIDNIGHT FOR COLONOSCOPY IN AM.
[2020-06-19] VITALS (9 sets, daily range): BP systolic 109–148; BP diastolic 29–53
--- NOTE | 2020-06-19 05:06 | NUR ---
PT. GIVEN FLEETS ENEMA ORDERED, TOLERATED WELL, CONTINUES TO HAVE FREQUENT BOWEL MOVEMENT. CLEARER BUT NOT TOTALLY CLEAR. WILL CONTINUE TO MONITOR. BEDSIDE GLUC 75, PT. W/D AND ASYMPTOMATIC, UP AT BEDSIDE WASHING UP FOR AM COLO. CHIQUITA MEHTA RN
[2020-06-19 06:00] LABS: BASO % 0.5 % (0.0-1.0); EOS # 0.3 10*3/uL (0.0-0.4); EOS % 3.7 % (1.0-4.0); HEMATOCRIT 26.3 % (37.0-47.0); LYMPH # 1.9 10*3/uL (1.3-4.4); LYMPH % 21.5 % (27.0-41.0); MEAN CELL VOLUME 79.7 fl (81.0-99.0); MEAN CORPUSCULAR HGB 22.4 pg (27.0-31.0); MEAN CORPUSCULAR HGB CONC 28.1 g/dl (33.0-37.0); MEAN PLATELET VOLUME 10.6 fl (9.6-12.3); MONO # 0.9 10*3/uL (0.1-1.0); MONO % 10.2 % (3.0-9.0); NEUT # 5.5 10*3/uL (2.3-7.9); NEUT % 63.9 % (47.0-73.0); PLATELET COUNT AUTOMATED 323 10*3/uL (130-400); RED CELL DISTRI WIDTH 18.6 % (0-14.5); WHITE BLOOD COUNT 8.6 10*3/uL (4.8-10.8)
--- NOTE | 2020-06-19 09:05 | NUR ---
PT GIVEN TWE WITH CLEAR RESULTS TOLERATED WELL,
--- NOTE | 2020-06-19 10:04 | NUR ---
PT SLEPING PAIN MED EFFECTIVE
--- NOTE | 2020-06-19 13:48 | NUR ---
TAKEN TO OR FOR COLONOSCOPY
--- NOTE | 2020-06-19 17:22 | NUR ---
0441, PATIENT RECIEVED FROM ENDOSCOPY, NO C/O VOICED, 0.9 NS 1000CC GIVEN IN ENDOSCOPY
--- NOTE | 2020-06-19 18:50 | NUR ---
TRANSFERRED TO ROOM 529 VIA WHEELCHAIR. REPORT GIVEN TO RN
--- NOTE | 2020-06-19 21:11 | NUR ---
PATIENT LAYING IN BED. MEDICATED WITH SCHEDULED PERCOCET FOR COMPLAINTS OF BACK PAIN. RATES 5/10. VOICES NO OTHER COMPLAINTS. RESPIRATIONS EASY, NON LABORED. WILL CHECK EFFECTIVENESS.
--- NOTE | 2020-06-19 22:11 | NUR ---
PATIENT STATES MEDICATION IS HELPING. WILL CONTINUE TO MONITOR.
[2020-06-20] VITALS: BP 126/37
--- NOTE | 2020-06-20 02:00 | NUR ---
PATIENT SLEEPING ON HER BACK. NO SIGNS OF DISTRESS. WILL CONTINUE TO MONITOR.
[2020-06-20 06:09] LABS: BASO % 0.5 % (0.0-1.0); EOS # 0.3 10*3/uL (0.0-0.4); EOS % 4.3 % (1.0-4.0); HEMATOCRIT 25.6 % (37.0-47.0); LYMPH # 1.1 10*3/uL (1.3-4.4); LYMPH % 16.9 % (27.0-41.0); MEAN CORPUSCULAR HGB 22.8 pg (27.0-31.0); MEAN CORPUSCULAR HGB CONC 28.1 g/dl (33.0-37.0); MEAN PLATELET VOLUME 10.5 fl (9.6-12.3); MONO # 0.8 10*3/uL (0.1-1.0); MONO % 12.8 % (3.0-9.0); NEUT # 4.2 10*3/uL (2.3-7.9); PLATELET COUNT AUTOMATED 320 10*3/uL (130-400); RED BLOOD COUNT 3.16 10*6/uL (4.10-5.10); WHITE BLOOD COUNT 6.5 10*3/uL (4.8-10.8)
[2020-06-20 08:00] VITALS: BP 148/50
--- NOTE | 2020-06-20 08:27 | NUR ---
PT RESTING IN BED. NO DISTRESS NOTED. WILL MONITOR
[2020-06-20] MEDS ORDERED: ELIQUIS5 M1 PO (10:44)
--- NOTE | 2020-06-20 13:00 | NUR ---
Discharge instructions reviewed with patient/family. Patient receptive and verbalizes understanding. Follow-up care arranged. Written instructions given to patient/family. ANEL STAHL
== END 2020-06-20 13:00 | disposition home or self-care (01) | DRG 377 ==
LOC: ED 01:21 → EDHOLD 01:29 → 5E 01:29 → ICCU 01:29 → 5E 06-19 18:01
PROVIDERS: Internal Medicine; Registered Nurse; ADMIT Emergency Medicine; ATTEND Emergency Medicine
PROC: 30233N1 Transfusion of Nonautologous Red Blood Cells into Peripheral Vein, Percutaneous Approach (ICD-10-PCS; principal; 2020-06-17)
PROC: 0DB78ZX Excision of Stomach, Pylorus, Via Natural or Artificial Opening Endoscopic, Diagnostic (ICD-10-PCS; 2020-06-18)
PROC: 0DJD8ZZ Inspection of Lower Intestinal Tract, Via Natural or Artificial Opening Endoscopic (ICD-10-PCS; 2020-06-19)
DX: K29.71 Gastritis, unspecified, with bleeding (principal); N17.0 Acute kidney failure with tubular necrosis; D62 Acute posthemorrhagic anemia; I50.32 Chronic diastolic (congestive) heart failure; E44.0 Moderate protein-calorie malnutrition; R65.10 Systemic inflammatory response syndrome (SIRS) of non-infectious origin without acute organ dysfunction; Z68.29 Body mass index [BMI] 29.0-29.9, adult; K57.31 Diverticulosis of large intestine without perforation or abscess with bleeding; D50.9 Iron deficiency anemia, unspecified; J44.9 Chronic obstructive pulmonary disease, unspecified; F17.210 Nicotine dependence, cigarettes, uncomplicated; E11.65 Type 2 diabetes mellitus with hyperglycemia; E83.41 Hypermagnesemia; E66.9 Obesity, unspecified; I11.0 Hypertensive heart disease with heart failure; K44.9 Diaphragmatic hernia without obstruction or gangrene; F41.1 Generalized anxiety disorder; E78.5 Hyperlipidemia, unspecified; I48.91 Unspecified atrial fibrillation; Z88.8 Allergy status to other drugs, medicaments and biological substances; Z98.891 History of uterine scar from previous surgery; Z90.49 Acquired absence of other specified parts of digestive tract; Z98.42 Cataract extraction status, left eye; Z98.41 Cataract extraction status, right eye; Z82.0 Family history of epilepsy and other diseases of the nervous system; Z82.5 Family history of asthma and other chronic lower respiratory diseases; Z83.3 Family history of diabetes mellitus; Z82.49 Family history of ischemic heart disease and other diseases of the circulatory system; Z80.8 Family history of malignant neoplasm of other organs or systems; Z79.82 Long term (current) use of aspirin; Z79.899 Other long term (current) drug therapy; Z71.6 Tobacco abuse counseling

== ENCOUNTER 2020-07-13 10:19 | Inpatient (IN) | payer OTHER, MEDICAID ==
[~2020-07-13] VITALS: Ht 157.4 cm; Wt 99.0 kg
[2020-07-13 10:42] VITALS: BP 160/40
[2020-07-13 11:03] LABS: BASO % 0.5 % (0.0-1.0); EOS # 0.2 10*3/uL (0.0-0.4); EOS % 1.8 % (1.0-4.0); HEMATOCRIT 29.4 % (37.0-47.0); LYMPH # 1.9 10*3/uL (1.3-4.4); LYMPH % 21.7 % (27.0-41.0); MEAN CELL VOLUME 79.7 fl (81.0-99.0); MEAN CORPUSCULAR HGB 20.9 pg (27.0-31.0); MEAN CORPUSCULAR HGB CONC 26.2 g/dl (33.0-37.0); MEAN PLATELET VOLUME 10.5 fl (9.6-12.3); MONO # 0.8 10*3/uL (0.1-1.0); MONO % 9.5 % (3.0-9.0); NEUT # 5.7 10*3/uL (2.3-7.9); NEUT % 66.3 % (47.0-73.0); PLATELET COUNT AUTOMATED 320 10*3/uL (130-400); RED BLOOD COUNT 3.69 10*6/uL (4.10-5.10); RED CELL DISTRI WIDTH 18.7 % (0-14.5); WHITE BLOOD COUNT 8.5 10*3/uL (4.8-10.8)
[2020-07-13 11:17] LABS: ACT PARTIAL THROMBO TIME 22.7 SECONDS (20.0-32.1); ALBUMIN 2.9 gm/dl (3.1-4.5); ALKALINE PHOSPHATASE 106 U/L (45-117); BUN 16 mg/dl (7-24); CHLORIDE 95 mmol/L (98-107); CREATININE 0.93 mg/dL (0.55-1.02); POTASSIUM 3.8 mmol/L (3.5-5.1); SGOT/AST 11 IU/L (3-35); SGPT/ALT 10 U/L (12-78); SODIUM 139 mmol/L (136-145); TOTAL PROTEIN 6.5 gm/dL (6.4-8.2)
[2020-07-13 11:21] LABS: TROPONIN I < 0.015 ng/ml (<0.045)
[2020-07-13 13:48] VITALS: BP 133/76
--- NOTE | 2020-07-13 13:48 | NUR ---
PT UP TO USE BEDSIDE COMMODE. NO ACUTE DISTRESS. A&O X3
--- NOTE | 2020-07-13 13:52 | NUR ---
PT DENIES WOUNDS
--- NOTE | 2020-07-13 14:10 | NUR ---
PT IS REFUSING ABG AT THIS TIME.SPO2 98 ON 4L NC. AND RN AWARE.
--- NOTE | 2020-07-13 15:19 | NUR ---
PT RESTING IN BED WITH EYES CLOSED. NO ACUTE DISTRESS AT THIS TIME. CALL LIGHT WITHIN REACH.
--- NOTE | 2020-07-13 17:47 | NUR ---
PT RESTING IN BED WITH EYES CLOSED. NO ACUTE DISTRESS. CALL LIGHT WITHIN REACH.
[2020-07-13 17:48] VITALS: BP 149/48
[2020-07-13 20:00] VITALS: BP 150/60
--- NOTE | 2020-07-13 20:21 | NUR ---
PT LAYING ON COT AT THIS TIME. NO DISTRESS NOTED. VSS.
--- NOTE | 2020-07-13 20:41 | NUR ---
PATIENT SPO2 78% ON ARRIVAL INTO PATIENTS' ROOM, THE PATIENTS NASAL CANNULA WAS UP NEAR HER EYES. NASAL CANNULA FIXED AND PATIENT WAS PULLED UP IN THE BED FOR OPTIMAL LUNG COMPLIANCE. PATIENT REQUESTING A BREATHINGT TREAMTMENT.
--- NOTE | 2020-07-14 01:20 | NUR ---
A 70, admitted to 4E, under the services of GINI Lucero DO with a diagnosis of PERSON UNDER INVESTIGATION FOR COVID. Chief complaint is SOB . Patient arrived via stretcher from ER. Monitor applied. Initial assessment completed. Vital signs taken and recorded. GINI LUCERO DO notified of admission to the unit. Orders received. See assessment for past medical history, medications and allergies. Patient and/or family oriented to unit. [facility] 4TH FLOOR visitation policy reviewed. Clothing/patient valuable form completed. AVI HENDERSON
[2020-07-14 02:20] VITALS: BP 140/61
[2020-07-14 03:16] LABS: ABG BASE EXCESS 10.2 mmol/L (-2.0-2.0); ARTERIAL BLOOD GAS PH 7.327 (7.35-7.45)
--- NOTE | 2020-07-14 03:28 | NUR ---
NOTIFIED DR. PORTER OF PATIENT CRITICAL PCO2 73.
--- NOTE | 2020-07-14 03:35 | NUR ---
PATIENT SLEEPING, NO SIGNS OF DISTRESS. WILL CONTINUE TO MONITOR.
--- NOTE | 2020-07-14 03:54 | NUR ---
NOTIFIED DR. BRADFORD OF NEW CONSULT. STATED TO ORDER BIPAP AND REDO BLOOD GAS AT 8AM.
--- NOTE | 2020-07-14 04:00 | NUR ---
PLACED PATIENT ON BIPAP 14/10 35% PER ORDER.
--- NOTE | 2020-07-14 06:30 | NUR ---
PATIENT REQUESTING TO COME OFF BIPAP SO SHE CAN GO TO THE RESTROOM AND ORDER BREAKFAST, NASAL CANNULA PLACED ON. WILL CONTINUE TO MONITOR.
[2020-07-14 07:14] LABS: BASO % 0.1 % (0.0-1.0); HEMATOCRIT 27.9 % (37.0-47.0); LYMPH # 1.2 10*3/uL (1.3-4.4); LYMPH % 13.8 % (27.0-41.0); MEAN CELL VOLUME 78.2 fl (81.0-99.0); MEAN CORPUSCULAR HGB 20.7 pg (27.0-31.0); MEAN CORPUSCULAR HGB CONC 26.5 g/dl (33.0-37.0); MEAN PLATELET VOLUME 10.6 fl (9.6-12.3); MONO # 0.5 10*3/uL (0.1-1.0); MONO % 5.8 % (3.0-9.0); NEUT # 6.7 10*3/uL (2.3-7.9); NEUT % 79.9 % (47.0-73.0); PLATELET COUNT AUTOMATED 309 10*3/uL (130-400); RED BLOOD COUNT 3.57 10*6/uL (4.10-5.10); RED CELL DISTRI WIDTH 18.8 % (0-14.5); WHITE BLOOD COUNT 8.4 10*3/uL (4.8-10.8)
[2020-07-14 07:33] LABS: BUN 20 mg/dl (7-24); CHLORIDE 93 mmol/L (98-107); CREATININE 1.06 mg/dL (0.55-1.02); POTASSIUM 4.5 mmol/L (3.5-5.1); SGOT/AST 11 IU/L (3-35); SGPT/ALT 12 U/L (12-78); SODIUM 134 mmol/L (136-145)
[2020-07-14 07:36] LABS: ALKALINE PHOSPHATASE 103 U/L (45-117); LDH 201 U/L (84-246); TOTAL PROTEIN 6.7 gm/dL (6.4-8.2)
[2020-07-14 08:00] VITALS: BP 148/55
--- NOTE | 2020-07-14 08:48 | NUR ---
Shiftman spoke to patient via phone. Patient states lives at home alone with her family checking in on her. There are 0 steps in the home. There is an elevator. Physician: Tyrone Levi Pharmacy: [facility] [place] health services: has had OV in the past but not currently, [facility] Patient's level of ADLs: minimal assistance Patient has working utilities: yes DME: O2 @ 2L [place], portable O2 tanks, nebulizer, O2 supplier [facility] Medical Follow-up physician's appointment after d/c: will be made by the hospitalist nurse director upon discharge Does patient want to access PORTAL?: no Discharge plan discussed with patient. She lives at home with her family checking in on her. She needs minimal assistance in bathing at times which her friend and sister help her with. She states she ambulates with either a cane or a walker when needed. Discussed short term rehab and she declines. Discussed home health care services and she states she has [facility] through her insurance. CM will continue to follow for any discharge planning needs. When medically stable she will be discharged to home. She states either her sister or her [id number] will provide transportation on discharge. BRUNO AGUILA
[2020-07-14 09:44] LABS: ABG BASE EXCESS 11.6 mmol/L (-2.0-2.0); ARTERIAL BLOOD GAS PH 7.444 (7.35-7.45)
[2020-07-14 12:00] VITALS: BP 146/48
[2020-07-14 16:00] VITALS: BP 146/47
[2020-07-14 20:00] VITALS: BP 153/53
--- NOTE | 2020-07-14 22:16 | NUR ---
PLACED PATIENT ON BIPAP FOR HS
[2020-07-15 06:49] LABS: HEMATOCRIT 26.6 % (37.0-47.0); MEAN CELL VOLUME 76.7 fl (81.0-99.0); MEAN CORPUSCULAR HGB 20.5 pg (27.0-31.0); MEAN CORPUSCULAR HGB CONC 26.7 g/dl (33.0-37.0); MEAN PLATELET VOLUME 10.6 fl (9.6-12.3); PLATELET COUNT AUTOMATED 311 10*3/uL (130-400); RED BLOOD COUNT 3.47 10*6/uL (4.10-5.10); RED CELL DISTRI WIDTH 19.5 % (0-14.5); WHITE BLOOD COUNT 12.6 10*3/uL (4.8-10.8)
[2020-07-15 07:07] LABS: OVALOCYTES FEW; PLATELET SUFFICIENCY NORMAL (NORMAL); TARGET CELLS FEW; TOTAL CELLS COUNTED 100 #CELLS
[2020-07-15 07:08] LABS: STOMATOCYTE FEW
[2020-07-15 07:09] LABS: MICROCYTOSIS SLIGHT
[2020-07-15 07:39] LABS: CHLORIDE 92 mmol/L (98-107); LDH 198 U/L (84-246); POTASSIUM 5.2 mmol/L (3.5-5.1); SODIUM 133 mmol/L (136-145)
[2020-07-15 07:40] LABS: BUN 38 mg/dl (7-24)
[2020-07-15 12:00] VITALS: BP 146/41
[2020-07-15 16:00] VITALS: BP 156/40
[2020-07-15 20:00] VITALS: BP 141/39
--- NOTE | 2020-07-15 20:35 | NUR ---
PT RESTING IN BED, REPOSITIONS SELF IN BED. RESP-EASY AND REGULAR. OXYGEN IN USE. SKIN PALE W/D. BSG-303, SEE EMAR. CALL LIGHT IN REACH. SEE SHIFT ASSESSMENT.
[2020-07-15 20:40] VITALS: BP 142/50
--- NOTE | 2020-07-15 20:44 | NUR ---
PT SITTING UP IN BED. TOLERATED ROUTINE PERCOCET FOR CHRONIC BACK/SIDE/LEG/FEET PAIN, RATES PAIN 8 ON PAIN SCALE 0-10. CALL LIGHT IN REACH. SEE EMAR.
--- NOTE | 2020-07-15 21:45 | NUR ---
RESTING IN BED. RESP-EASY AND REGULAR. STATES MEDICATION HELPS. NO NEW C/O AT THIS TIME. CALL LIGHT IN REACH.
[2020-07-16] VITALS (8 sets, daily range): BP systolic 132–164; BP diastolic 38–60
--- NOTE | 2020-07-16 00:25 | NUR ---
Pt placed on BiPap 14/10 and Fio2 35% Alarms on and audible.
--- NOTE | 2020-07-16 00:30 | NUR ---
RESTING IN BED WITH BIPAP ON. RESP-EASY AND REGULAR. CALL LIGHT IN REACH. SEE SHIFT ASSESSMENT.
--- NOTE | 2020-07-16 04:00 | NUR ---
SLEEPIGN IN BED. RESP-EASY AND REGULAR. BIPA P IN USE. CALL LIGHT IN REACH.
--- NOTE | 2020-07-16 04:11 | NUR ---
PATIENT OFF BIPAP. 2L NC IN USE
--- NOTE | 2020-07-16 05:36 | NUR ---
SITTING UP AT SIDE OF BED. BSG-443, SECOND BSG-431, SEE EMAR. CALL LIGHT IN REACH. SKIN W/D.
[2020-07-16 06:56] LABS: LDH 193 U/L (84-246)
--- NOTE | 2020-07-16 07:10 | NUR ---
REPORT RECEIVED. PT LYING IN BED. NO COMPLAINTS.
--- NOTE | 2020-07-16 08:32 | NUR ---
DR. JOHNSON NOTIFIED OF PT PULSE 62 APICALLY. STATED TO HOLD CARDIZEM AND LOPRESSOR THIS AM.
--- NOTE | 2020-07-16 08:34 | NUR ---
PERCOCET GIVEN PER ORDER. WILL MONITOR
--- NOTE | 2020-07-16 09:32 | NUR ---
PER PT, PERCOCET HELPED HER PAIN
--- NOTE | 2020-07-16 11:30 | NUR ---
case management talks with patient regarding discharge plan including a short term long term for 5 days of rehab and 24 hour care prior to returning home, she declined stated she would return home when discharged, also discussed [facility] and educated her on their services, she was agreeable with this, given choice of companies she chose [facility], will send a referral to [facility] when patient is discharged, case management will follow
--- NOTE | 2020-07-16 12:00 | NUR ---
PT VOICES NO COMPLAINTS
[2020-07-16] MEDS ORDERED: PREDNISONE10 MG PO (14:49)
--- NOTE | 2020-07-16 15:48 | NUR ---
BLOOD ENDED AT THIS TIME. PT TOLERATED WELL
[2020-07-16 17:10] LABS: HEMATOCRIT 30.2 % (37.0-47.0); MEAN CELL VOLUME 76.5 fl (81.0-99.0); MEAN CORPUSCULAR HGB 21.8 pg (27.0-31.0); MEAN CORPUSCULAR HGB CONC 28.5 g/dl (33.0-37.0); MEAN PLATELET VOLUME 10.3 fl (9.6-12.3); NUCLEATED RED BLOOD CELL 0.2 % (0.0-0.0); PLATELET COUNT AUTOMATED 321 10*3/uL (130-400); RED BLOOD COUNT 3.95 10*6/uL (4.10-5.10); RED CELL DISTRI WIDTH 19.1 % (0-14.5); WHITE BLOOD COUNT 14.8 10*3/uL (4.8-10.8)
[2020-07-16 17:26] LABS: PLATELET SUFFICIENCY NORMAL (NORMAL); TOTAL CELLS COUNTED 100 #CELLS
--- NOTE | 2020-07-16 18:16 | NUR ---
Discharge instructions reviewed with patient/family. Patient receptive and verbalizes understanding. Follow-up care arranged. Written instructions given to patient/family. JOVITA CAMARENA
== END 2020-07-16 18:16 | disposition home or self-care (01) | DRG 291 ==
LOC: ED 10:19 → EDHOLD 11:46 → 4E 11:46 → EDHOLD 11:48 → 4E 07-14 00:27
PROVIDERS: Emergency Medicine; Hospitalist; Internal Medicine Critical Care Medicine; Student in an Organized Health Care Education/Training Program; ADMIT Emergency Medicine; ATTEND Emergency Medicine
PROC: 5A09357 Assistance with Respiratory Ventilation, Less than 24 Consecutive Hours, Continuous Positive Airway Pressure (ICD-10-PCS; 2020-07-14)
PROC: 5A09357 Assistance with Respiratory Ventilation, Less than 24 Consecutive Hours, Continuous Positive Airway Pressure (ICD-10-PCS; 2020-07-15)
PROC: 30233N1 Transfusion of Nonautologous Red Blood Cells into Peripheral Vein, Percutaneous Approach (ICD-10-PCS; principal; 2020-07-16)
PROC: 5A09357 Assistance with Respiratory Ventilation, Less than 24 Consecutive Hours, Continuous Positive Airway Pressure (ICD-10-PCS; 2020-07-16)
DX: I13.0 Hypertensive heart and chronic kidney disease with heart failure and stage 1 through stage 4 chronic kidney disease, or unspecified chronic kidney disease (principal); J96.21 Acute and chronic respiratory failure with hypoxia; I50.33 Acute on chronic diastolic (congestive) heart failure; J96.22 Acute and chronic respiratory failure with hypercapnia; K92.2 Gastrointestinal hemorrhage, unspecified; J44.1 Chronic obstructive pulmonary disease with (acute) exacerbation; E87.3 Alkalosis; E44.0 Moderate protein-calorie malnutrition; D68.59 Other primary thrombophilia; E83.41 Hypermagnesemia; Z20.828 Contact with and (suspected) exposure to other viral communicable diseases; E11.65 Type 2 diabetes mellitus with hyperglycemia; I48.91 Unspecified atrial fibrillation; E11.22 Type 2 diabetes mellitus with diabetic chronic kidney disease; N18.30 Chronic kidney disease, stage 3 unspecified; E87.8 Other disorders of electrolyte and fluid balance, not elsewhere classified; E66.01 Morbid (severe) obesity due to excess calories; E78.5 Hyperlipidemia, unspecified; F41.1 Generalized anxiety disorder; I48.0 Paroxysmal atrial fibrillation; F17.210 Nicotine dependence, cigarettes, uncomplicated; D50.9 Iron deficiency anemia, unspecified; E87.5 Hyperkalemia; Z71.6 Tobacco abuse counseling; Z98.891 History of uterine scar from previous surgery; Z88.8 Allergy status to other drugs, medicaments and biological substances; Z79.899 Other long term (current) drug therapy; Z79.01 Long term (current) use of anticoagulants; Z82.5 Family history of asthma and other chronic lower respiratory diseases; Z82.49 Family history of ischemic heart disease and other diseases of the circulatory system; Z68.29 Body mass index [BMI] 29.0-29.9, adult

== ENCOUNTER → 2020-09-09 | Outpatient (CLI) | payer OTHER, MEDICAID ==
[~2020-09-09] MED LIST changes: +DEXAMETHASONE6 MG PO
== END | disposition home or self-care (01) ==
LOC: LAB 15:00
PROVIDERS: ATTEND Internal Medicine Gastroenterology
DX: D64.9 Anemia, unspecified (principal)

== ENCOUNTER 2020-10-13 10:40 | Emergency (ER) | payer OTHER, MEDICAID ==
[~2020-10-13] VITALS: Wt 70.3 kg
[~2020-10-13 10:40] MED LIST changes: -DEXAMETHASONE6 MG PO
[2020-10-13 11:08] LABS: BASO % 0.4 % (0.0-1.0); EOS # 0.2 10*3/uL (0.0-0.4); EOS % 2.2 % (1.0-4.0); HEMATOCRIT 29.4 % (37.0-47.0); LYMPH # 1.8 10*3/uL (1.3-4.4); MEAN CELL VOLUME 79.2 fl (81.0-99.0); MEAN CORPUSCULAR HGB 21.8 pg (27.0-31.0); MEAN CORPUSCULAR HGB CONC 27.6 g/dl (33.0-37.0); MEAN PLATELET VOLUME 10.1 fl (9.6-12.3); MONO # 0.9 10*3/uL (0.1-1.0); MONO % 11.3 % (3.0-9.0); NEUT # 4.9 10*3/uL (2.3-7.9); PLATELET COUNT AUTOMATED 209 10*3/uL (130-400); RED BLOOD COUNT 3.71 10*6/uL (4.10-5.10); RED CELL DISTRI WIDTH 18.7 % (0-14.5); WHITE BLOOD COUNT 7.7 10*3/uL (4.8-10.8)
[2020-10-13 11:19] LABS: ACT PARTIAL THROMBO TIME 26.8 SECONDS (20.0-32.1)
[2020-10-13 11:34] LABS: ALBUMIN 2.6 gm/dl (3.1-4.5); ALKALINE PHOSPHATASE 110 U/L (45-117); BUN 18 mg/dl (7-24); CHLORIDE 102 mmol/L (98-107); CREATININE 0.84 mg/dL (0.55-1.02); POTASSIUM 3.7 mmol/L (3.5-5.1); SGOT/AST 13 IU/L (3-35); SGPT/ALT 19 U/L (12-78); SODIUM 141 mmol/L (136-145); TOTAL PROTEIN 6.1 gm/dL (6.4-8.2)
[2020-10-13 11:35] LABS: TROPONIN I < 0.015 ng/ml (<0.045)
[2020-10-13 12:09] LABS: ABG BASE EXCESS 9.3 mmol/L (-2.0-2.0); ARTERIAL BLOOD GAS PH 7.352 (7.35-7.45); ARTERIAL BLOOD GAS PO2 81.8 (80-90)
[2020-10-13 12:32] LABS: BILIRUBIN Negative (Negative); BLOOD Negative (Negative); CLARITY Clear (Clear); COLOR Yellow (Yellow); GLUCOSE Negative (Negative); KETONE Negative (Negative); LEUKO ESTERASE Negative (Negative); NITRITE Negative (Negative); PH 5.5 (4.5-8.0); SPECIFIC GRAVITY 1.025 (1.001-1.030)
[2020-10-13] MEDS ORDERED: DEXAMETHASONE6 MG PO (12:33)
[2020-10-13] MEDS ORDERED: VIBRAMYCIN100 MG PO (12:33)
[2020-10-13 12:42] LABS: BACTERIA TRACE; MUCOUS TRACE; RBC 0-2 rbc/hpf (0-2)
[2020-10-13 13:12] VITALS: BP 153/49
== END 2020-10-13 13:25 | disposition home or self-care (01) ==
LOC: ED 10:40
PROVIDERS: Emergency Medicine
DX: J44.1 Chronic obstructive pulmonary disease with (acute) exacerbation (principal); J96.92 Respiratory failure, unspecified with hypercapnia; J96.91 Respiratory failure, unspecified with hypoxia; F32.9 Major depressive disorder, single episode, unspecified; F20.9 Schizophrenia, unspecified; I48.91 Unspecified atrial fibrillation; E78.5 Hyperlipidemia, unspecified; E11.22 Type 2 diabetes mellitus with diabetic chronic kidney disease; I13.0 Hypertensive heart and chronic kidney disease with heart failure and stage 1 through stage 4 chronic kidney disease, or unspecified chronic kidney disease; N18.9 Chronic kidney disease, unspecified; I50.30 Unspecified diastolic (congestive) heart failure; E66.01 Morbid (severe) obesity due to excess calories; F17.210 Nicotine dependence, cigarettes, uncomplicated; Z88.8 Allergy status to other drugs, medicaments and biological substances; Z79.899 Other long term (current) drug therapy; Z68.41 Body mass index [BMI] 40.0-44.9, adult; Z98.890 Other specified postprocedural states

== ENCOUNTER → 2020-11-08 | Outpatient (CLI) | payer OTHER, MEDICAID ==
[~2020-11-08] MED LIST changes: +DEXAMETHASONE6 MG PO
== END | disposition home or self-care (01) ==
LOC: CARD 11-01 13:00
PROVIDERS: ATTEND Internal Medicine Cardiovascular Disease
DX: I08.0 Rheumatic disorders of both mitral and aortic valves (principal)

== ENCOUNTER → 2021-05-02 | Outpatient (CLI) | payer MEDICARE | END | disposition home or self-care (01) | LOC: MAMMO 08:55 | PROVIDERS: ATTEND Physician Assistant | DX: Z12.31 Encounter for screening mammogram for malignant neoplasm of breast (principal) ==

== ENCOUNTER → 2022-08-13 | Outpatient (CLI) | payer MEDICARE | END | disposition home or self-care (01) | LOC: MAMMO 04-28 10:00 | PROVIDERS: ATTEND Physician Assistant | DX: Z12.31 Encounter for screening mammogram for malignant neoplasm of breast (principal); N64.9 Disorder of breast, unspecified ==

== ENCOUNTER → 2022-10-03 | Outpatient (CLI) | payer OTHER ==
[~2022-10-03] MED LIST changes: +ELIQUIS2.5 M1 PO; +METOPROLOL SUCC50 M1 PO; +TRELEGY ELLIPT1 EACH INH
== END | disposition home or self-care (01) ==
LOC: CARD 00:45
PROVIDERS: ATTEND Physician Assistant
DX: I45.10 Unspecified right bundle-branch block (principal); R07.9 Chest pain, unspecified; R53.81 Other malaise

== ENCOUNTER → 2022-10-16 | Outpatient (CLI) | payer OTHER | END | disposition home or self-care (01) | LOC: US 08-22 15:00 | PROVIDERS: ATTEND Physician Assistant | DX: E04.2 Nontoxic multinodular goiter (principal) ==

== ENCOUNTER → 2023-04-16 | Outpatient (CLI) | payer OTHER | END | disposition home or self-care (01) | LOC: CT 01:20 | PROVIDERS: ATTEND Internal Medicine Critical Care Medicine | DX: J43.9 Emphysema, unspecified (principal); J45.50 Severe persistent asthma, uncomplicated; J30.89 Other allergic rhinitis; R91.1 Solitary pulmonary nodule; Z87.891 Personal history of nicotine dependence ==

== ENCOUNTER 2023-07-18 13:58 | Inpatient (IN) | payer OTHER ==
[~2023-07-18] VITALS: Ht 157.5 cm; Wt 66.4 kg
[~2023-07-18 13:58] MED LIST changes: +ACETAZOLAMIDE250 MG PO; +ERTAPENEM1 GM IV; +FUROSEMIDE20 M1 PO; +Humalog SQ; +JANUVIA100 MG PO; +LASIX80 MG PO; +LOPRESSOR50 M1 PO; +NICODERM T; +NITROFURANTOIN100 M3 PO; +OXYCODONE-ACET1 EAC3 PO; +SPIRIVA RESPIMAT4 GM INH; +Zaroxolyn,Diul2.5 MG PO
[2023-07-18 15:00] VITALS: BP 105/51
[2023-07-18 16:00] VITALS: BP 89/41
[2023-07-18 19:58] VITALS: BP 102/55
[2023-07-19] VITALS: BP 85/44
[2023-07-19 08:00] VITALS: BP 78/33
[2023-07-19 12:00] VITALS: BP 73/44
[2023-07-19 16:00] VITALS: BP 76/41
[2023-07-19 20:00] VITALS: BP 83/31
[2023-07-20] VITALS: BP 66/31
[2023-07-20 08:00] VITALS: BP 54/22
[2023-07-20 12:00] VITALS: BP 55/19
== END 2023-07-20 15:23 | DRG 871 ==
LOC: ICCU 13:58 → 4E 17:29
PROVIDERS: ADMIT Internal Medicine; ATTEND Internal Medicine
DX: A41.9 Sepsis, unspecified organism (principal); I21.4 Non-ST elevation (NSTEMI) myocardial infarction; J18.9 Pneumonia, unspecified organism; N17.0 Acute kidney failure with tubular necrosis; J96.21 Acute and chronic respiratory failure with hypoxia; J96.22 Acute and chronic respiratory failure with hypercapnia; R65.21 Severe sepsis with septic shock; U07.1 COVID-19; J44.1 Chronic obstructive pulmonary disease with (acute) exacerbation; N17.9 Acute kidney failure, unspecified; J91.8 Pleural effusion in other conditions classified elsewhere; E87.1 Hypo-osmolality and hyponatremia; I13.0 Hypertensive heart and chronic kidney disease with heart failure and stage 1 through stage 4 chronic kidney disease, or unspecified chronic kidney disease; I50.9 Heart failure, unspecified; R53.81 Other malaise; D64.9 Anemia, unspecified; B33.8 Other specified viral diseases; D75.839 Thrombocytosis, unspecified; E11.69 Type 2 diabetes mellitus with other specified complication; Z66 Do not resuscitate; N18.31 Chronic kidney disease, stage 3a; E78.5 Hyperlipidemia, unspecified; Z51.5 Encounter for palliative care; E11.22 Type 2 diabetes mellitus with diabetic chronic kidney disease